=== PATIENT | female | born 1990 | race Caucasian/White ===

== ENCOUNTER → 2016-10-11 | Outpatient (CLI) | payer MEDICAID ==
[~2016-10-11] MED LIST: ACETAMINOPHEN-H1 TA2 PO; AMOXICILLIN AND1 TA1 PO; ANTIBIOTIC; AUGMENTIN XR 101 TER PO; AVIDOXY100 MG PO; BACTROBAN21 NS; CIPRO 500MG TA500 MG PO; CIPROFLOXACIN500 MG PO; CLEOCIN HCL300 MG PO; CLINDAMYCIN HC150 MG PO; CLINDAMYCIN HC300 MG PO; CLINDAMYCIN300 MG PO; DOXYCYCLINE HY100 M3 PO; DOXYCYCLINE150 MG PO; ERYTHROMYCIN1 GM/UDP OP; FLAGYL500 M1 PO; FLAGYL500 MG PO; FLEXERIL10 MG PO; HYDROCODONE-APA1 TA2 PO; IBUPROFEN400 MG PO; IMPLANON68 MG ID; KEFLEX 500MG.500 MG PO; LEVAQUIN500 MG PO; LORTAB 5/500 501 TAB PO; MACROBID 100MG100 MG PO; MACROBID100 M1 PO; MINOCYCLINE 10100 MG PO; MOTRIN 600MG.600 MG PO; MUPIROCIN21; NICOTINE PATCH;21 MG TD; NORCO 325 MG-51 TAB PO; NORCO1 TAB PO; PERCOCET 325 MG1 TA3 PO; PERCOCET 5/3251 EACH PO; PHENERGAN 25MG.25 M1 PO; PREDNISONE 20MG20 MG PO; PROMETHAZINE D118 ML PO; PYRIDIUM 200MG200 MG PO; RIFADIN 300MG300 MG PO; TESSALON PERLE100 MG PO; TIZANIDINE HCL 44 MG PO; TORADOL10 MG PO; TRAMADOL50 M1 PO; TRAZODONE 50MG50 MG PO; VIBRAMYCIN 100100 MG PO; VIBRAMYCIN HYC100 MG PO; VICODIN 5/500 T1 TAB PO; VICODIN ES 7501 TAB PO; VOLTAREN75 MG PO; XANAX1 M1 PO
[2016-10-11 16:00] LABS: AMPHETAMINES/METAMPHETAMINES POSITIVE ng/mL (<1000)
== END ==
LOC: LAB 13:45
PROVIDERS: Emergency Medicine
DX: Z79.899 Other long term (current) drug therapy (principal)

== ENCOUNTER → 2017-02-12 | Outpatient (CLI) | payer MEDICAID ==
[~2017-02-12] MED LIST changes: +ADDERALL 20 MG20 MG PO; +GABAPENTIN100 M1 PO; +MUCINEX ER600 MG PO; +PROVENTIL0.09 MG/A1 IH
[2017-02-12 21:28] LABS: AMPHETAMINES/METAMPHETAMINES NEGATIVE ng/mL (<1000)
== END ==
LOC: LAB 14:50
PROVIDERS: Emergency Medicine
DX: M79.601 Pain in right arm (principal); Z79.899 Other long term (current) drug therapy

== ENCOUNTER 2017-02-23 16:21 | Emergency (ER) | payer MEDICAID ==
[~2017-02-23] VITALS: Ht 152.4 cm; Wt 52.2 kg
--- NOTE | 2017-02-23 17:30 | Urgent Treatment Center Report ---
See Addendum History of Present Issue Date/Time Seen by Provider 02/23/17 1708 Visit Reason Pt arrived:Walked Presenting Problem:PT C/O HEAD AND CHEST CONGESTION, FEVER, COUGH Location if Accident: Onset of symptoms date/time:/ or onset unknown for:MEDICAL HX UNKNOWN Have you (or family members/close friends) recently traveled outside the [place]? N If Yes, where/when: Have you had exposure to infectious disease within the past month? TB? Other? Specify: Patient states that she has been having cough and congestions along with fever that has been on and off since last week States that she was seen at [facility] on Sun and given steriod shot and Zpack but it has not been helping States that she has continued to feel bad and run fever State that she is able to keep fever down with Motrin ALLERGIES Coded Allergies: bacitracin (From NEOSPORIN ([id number])) (Mild, 05/03/15) neomycin (From NEOSPORIN ([id number])) (Mild, 05/03/15) polymyxin B (From NEOSPORIN ([id number])) (Mild, 05/03/15) sulfamethoxazole (From BACTRIM) (Mild, 05/03/15) trimethoprim (From BACTRIM) (Mild, 05/03/15) Home Medications Active Scripts Clindamycin Hcl (Clindamycin 300MG) 300 MG PO QID #40 CAP Prov: 12/04/16 Reported Medications TIZANIDINE HCL (Tizanidine Hcl 4 Mg Tablet) 4 MG PO NIGHTLY #30 Dextroamphetamine/Amphetamine (Adderall 20 MG Tablet) 20 MG PO BID Gabapentin (Gabapentin 100MG) (Unknown Dose) PO TID History Medical History General CAD? No Angina: No IN: No Hypertension? No Hyperlipidemia? No CHF? No DVT? No PE? No COPD? No Asthma? No Anemia? No GERD? No Gastric ulcers? No GI Bleed? No Hernia? No Thyroid Problems? No Hypothyroidism? No CVA? No Seizures? No Diabetes? No Renal Insuffiency? No UTI? Yes Stones? No BPH? No GB Disease: Yes Nephritic Syndrome? No Asplenia? No Hepatitis? No Sickle Cell Disease? No Arthritis? No Migraines? No Cataracts? No Glaucoma? No MRSA? Yes HIV? No TB? No Anxiety? No Depression? No Cancer? No More? No Immunization HX DT/Tetanus 1-4 Years Ago Flu Refused Pneumonia Refuses Surgical Hx Previous Surgery?Y Tonsils L ARM BARTHOLIN CYST ORAL SURGERY-WISDOM TEETH OVARIAN CYST-X 2 LANCED RT BREAST LESION COLONOSCOPY LEFT LEG ABSCESS LEFT LEG SWEAT GLANDS LEG SWEAT GLAND REMOVAL L GROIN ABCESS RIGHT LEG SWEAT GLAND-RE MOVAL GROIN ABCESS DRAINED X3 LAP GOGO, I&D X3 IN P3MO Family History Family HX Diabetes Yes CAD Yes Hypertension Yes Hyperlipidemia Yes Cancer Yes TB No Social History Smoking Hx Smoker: Current Every Day Smoker Tobacco: Yes Type Cigarettes Packs/day < 1 Pack Alcohol Alcohol: No Review of Systems All Other Systems Reviewed and Negative Constitutional chills, fever Respiratory cough, denies shortness of breath, denies wheezing Cardiovascular denies chest pain, denies palpitations Gastrointestinal denies diarrhea, denies nausea, denies vomiting Physical Exam Vital Signs Vital Signs Date Time Temp Pulse Resp B/P Pulse O2 O2 Flow FiO2 Ox Delivery Rate 02/23 1640 97.6 111 20 118/49 96 General Appearance Patient appears ill pale in color in no distress sitting on exam table Ear, Nose, Throat sinus pain/drainage, nasal congestion, Throat red, irritated drainage noted, sinus pain and drainage noted Respiratory Status Yes: trachea midline, chest symmetrical, non tender chest. No: respiratory distress. Lung Sounds left: rhonchi (rhonchi clears with cough), wheezing. Cardiovascular normal exam, regular rate/rhythm Neurologic alert, normal exam, oriented x 3 Medical Decision Making LABS/Meds/Orders Pt receiving controlled substance in ED? No Results/Orders Current Medication Orders Sig/Matthias Start time Last Medication Dose Route Stop Time Status Admin Albuterol/Ipratropium 0 .STK-MED ONE 02/23 173 DC INH Albuterol/Ipratropium 3 ML ONCE ONE 02/23 1730 DC 02/23 INH 02/23 1731 1738 Orders Procedure Date/time Status RT REQUEST DUONEB 02/23 172 Active CHEST(2 VIEWS-NOT PORTABLE) 02/23 1645 Active Departure Departure Time of Disposition 1727 Disposition DC Home or Self Care(routine) Clinical Impression Primary Impression: Pneumonia Qualifiers: Pneumonia type: due to unspecified organism Laterality: left Lung location: lower lobe of lung Qualified Code: J18.1 - Lobar pneumonia, unspecified organism Condition STABLE Referrals Lawrence SMART,Tolu Velázquez (Family) Patient Instructions DI for Pneumonia -- Adult, Pneumonia-Adult Additional Instructions * Monitor Temp. Tylenol and/or Ibuprofen as needed. ER if fever is no less than 101 despite alternating Tylenol and Ibuprofen * Encourage fluids, water, Gatorade, powerade, pedialyte if infant/toddler/or child * Warm salt water gargles for throat irritation *Warm fluids *Sore throat lozenges *Sleep elevated *humidifier or vaporizer Follow up IMMEDIATELY for new or worsening of symptoms OR no noticeable improvement over the next 48-72 hours. 911 immediately for any life threatening symptoms such as chest pain or difficulty breathing Take antibiotics as prescribed Return if needed Discharge Counseling Counseled pt/family regarding diagnosis, test results, medications/RX, home care, follow up needs Prescriptions Current Visit Scripts ALBUTEROL (Proventil Hfa Inhaler) 2 PUFF IH Q6H PRN #1 CAN Guaifenesin (Mucinex) 600 MG PO BID #20 TAB Levofloxacin (Levaquin 500MG) 500 MG PO DAILY #10 TAB Prednisone (Prednisone 20MG) 20 MG PO BID #10 TAB at 1756
--- NOTE | 2017-02-23 17:30 | Urgent Treatment Center Report ---
See Addendum History of Present Issue Date/Time Seen by Provider 02/23/17 1708 Visit Reason Pt arrived:Walked Presenting Problem:PT C/O HEAD AND CHEST CONGESTION, FEVER, COUGH Location if Accident: Onset of symptoms date/time:/ or onset unknown for:MEDICAL HX UNKNOWN Have you (or family members/close friends) recently traveled outside the [place]? N If Yes, where/when: Have you had exposure to infectious disease within the past month? TB? Other? Specify: Patient states that she has been having cough and congestions along with fever that has been on and off since last week States that she was seen at [facility] on Sun and given steriod shot and Zpack but it has not been helping States that she has continued to feel bad and run fever State that she is able to keep fever down with Motrin ALLERGIES Coded Allergies: bacitracin (From NEOSPORIN ([id number])) (Mild, 05/03/15) neomycin (From NEOSPORIN ([id number])) (Mild, 05/03/15) polymyxin B (From NEOSPORIN ([id number])) (Mild, 05/03/15) sulfamethoxazole (From BACTRIM) (Mild, 05/03/15) trimethoprim (From BACTRIM) (Mild, 05/03/15) Home Medications Active Scripts Clindamycin Hcl (Clindamycin 300MG) 300 MG PO QID #40 CAP Prov: 12/04/16 Reported Medications TIZANIDINE HCL (Tizanidine Hcl 4 Mg Tablet) 4 MG PO NIGHTLY #30 Dextroamphetamine/Amphetamine (Adderall 20 MG Tablet) 20 MG PO BID Gabapentin (Gabapentin 100MG) (Unknown Dose) PO TID History Medical History General CAD? No Angina: No NM: No Hypertension? No Hyperlipidemia? No CHF? No DVT? No PE? No COPD? No Asthma? No Anemia? No GERD? No Gastric ulcers? No GI Bleed? No Hernia? No Thyroid Problems? No Hypothyroidism? No CVA? No Seizures? No Diabetes? No Renal Insuffiency? No UTI? Yes Stones? No BPH? No GB Disease: Yes Nephritic Syndrome? No Asplenia? No Hepatitis? No Sickle Cell Disease? No Arthritis? No Migraines? No Cataracts? No Glaucoma? No MRSA? Yes HIV? No TB? No Anxiety? No Depression? No Cancer? No More? No Immunization HX DT/Tetanus 1-4 Years Ago Flu Refused Pneumonia Refuses Surgical Hx Previous Surgery?Y Tonsils L ARM BARTHOLIN CYST ORAL SURGERY-WISDOM TEETH OVARIAN CYST-X 2 LANCED RT BREAST LESION COLONOSCOPY LEFT LEG ABSCESS LEFT LEG SWEAT GLANDS LEG SWEAT GLAND REMOVAL L GROIN ABCESS RIGHT LEG SWEAT GLAND-RE MOVAL GROIN ABCESS DRAINED X3 LAP GOGO, I&D X3 IN P3MO Family History Family HX Diabetes Yes CAD Yes Hypertension Yes Hyperlipidemia Yes Cancer Yes TB No Social History Smoking Hx Smoker: Current Every Day Smoker Tobacco: Yes Type Cigarettes Packs/day < 1 Pack Alcohol Alcohol: No Review of Systems All Other Systems Reviewed and Negative Constitutional chills, fever Respiratory cough, denies shortness of breath, denies wheezing Cardiovascular denies chest pain, denies palpitations Gastrointestinal denies diarrhea, denies nausea, denies vomiting Physical Exam Vital Signs Vital Signs Date Time Temp Pulse Resp B/P Pulse O2 O2 Flow FiO2 Ox Delivery Rate 02/23 1640 97.6 111 20 118/49 96 General Appearance Patient appears ill pale in color in no distress sitting on exam table Ear, Nose, Throat sinus pain/drainage, nasal congestion, Throat red, irritated drainage noted, sinus pain and drainage noted Respiratory Status Yes: trachea midline, chest symmetrical, non tender chest. No: respiratory distress. Lung Sounds left: rhonchi (rhonchi clears with cough), wheezing. Cardiovascular normal exam, regular rate/rhythm Neurologic alert, normal exam, oriented x 3 Medical Decision Making LABS/Meds/Orders Pt receiving controlled substance in ED? No Results/Orders Current Medication Orders Sig/Matthias Start time Last Medication Dose Route Stop Time Status Admin Albuterol/Ipratropium 0 .STK-MED ONE 02/23 173 DC INH Albuterol/Ipratropium 3 ML ONCE ONE 02/23 1730 DC 02/23 INH 02/23 1731 1738 Orders Procedure Date/time Status RT REQUEST DUONEB 02/23 172 Active CHEST(2 VIEWS-NOT PORTABLE) 02/23 1645 Active Departure Departure Time of Disposition 1727 Disposition DC Home or Self Care(routine) Clinical Impression Primary Impression: Pneumonia Qualifiers: Pneumonia type: due to unspecified organism Laterality: left Lung location: lower lobe of lung Qualified Code: J18.1 - Lobar pneumonia, unspecified organism Condition STABLE Referrals Lawrence SMART,Tolu Velázquez (Family) Patient Instructions DI for Pneumonia -- Adult, Pneumonia-Adult Additional Instructions * Monitor Temp. Tylenol and/or Ibuprofen as needed. ER if fever is no less than 101 despite alternating Tylenol and Ibuprofen * Encourage fluids, water, Gatorade, powerade, pedialyte if infant/toddler/or child * Warm salt water gargles for throat irritation *Warm fluids *Sore throat lozenges *Sleep elevated *humidifier or vaporizer Follow up IMMEDIATELY for new or worsening of symptoms OR no noticeable improvement over the next 48-72 hours. 911 immediately for any life threatening symptoms such as chest pain or difficulty breathing Take antibiotics as prescribed Return if needed Discharge Counseling Counseled pt/family regarding diagnosis, test results, medications/RX, home care, follow up needs Prescriptions Current Visit Scripts ALBUTEROL (Proventil Hfa Inhaler) 2 PUFF IH Q6H PRN #1 CAN Guaifenesin (Mucinex) 600 MG PO BID #20 TAB Levofloxacin (Levaquin 500MG) 500 MG PO DAILY #10 TAB Prednisone (Prednisone 20MG) 20 MG PO BID #10 TAB at 1752
[2017-02-23 18:07] VITALS: BP 118/49
--- NOTE | 2017-02-24 09:25 | RADIOLOGY REPORT PS360 ---
CHEST(2 VIEWS-NOT PORTABLE) INDICATION: Cough, chest congestion COMPARISON: None FINDINGS: The lung fair are well expanded and appear clear of infiltrate. The cardiomediastinal silhouette and vascularity are normal. The costophrenic angles are clear. The bony thorax is normal. IMPRESSION: Normal chest.
--- OUTSIDE RECORDS SUMMARY | 2017-03-02 08:04 | External Medical Summary Rpt | CCD ---
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 3- 00 IC 66 Av ve X 18 20 20 ai 1% 02 08 08 PH la 2 AR bl OI MA e NT CY ME NT 00 06 06 00 20 10 CL 17 No Ac 52 -0 -1 .0 IN 18 t ti 71 3- 2- 00 IC 93 Av ve 44 20 20 ai 30 08 08 PH la 1 AR bl MA e CY AM 00 05 05 00 40 10 CL 17 No Ac PI 78 -1 -2 .0 IN 05 t ti CI 12 2- 2- 00 IC 66 Av ve LL 14 20 20 ai IN 50 08 08 PH la 1 AR bl 50 MA e 0 CY MG CA PS UL E 00 05 05 00 14 14 CL 17 No Ac 04 -1 -2 .0 IN 06 t ti 51 3- 2- 00 IC 45 Av ve 52 20 20 ai 55 08 08 PH la 0 AR bl MA e CY 00 05 05 00 20 4 CL 17 No Ac 59 -1 -2 .0 IN 06 t ti 10 3- 2- 00 IC 47 Av ve 38 20 20 ai 50 08 08 PH la 5 AR bl MA e CY 52 05 05 00 30 10 CL 17 No Ac 15 -1 -2 .0 IN 06 t ti 20 3- 2- 00 IC 46 Av ve 00 20 20 ai 40 08 08 PH la 2 AR bl MA e CY CI 55 02 04 00 14 7 CL 16 No Ac MD 11 -2 -0 .0 IN 57 t ti OF 10 6- 7- 00 IC 12 Av ve LO 12 20 20 ai XA 70 08 08 PH la CI 1 AR bl N MA e HC CY L 50 0 MG TA B MU 45 01 03 00 22 7 CL 16 No Ac PI 80 -2 -2 .0 IN 35 t ti RO 20 9- 6- 00 IC 76 Av ve CI 11 20 20 ai N 22 08 08 PH la 2% 2 AR bl MA e OI CY NT ME NT DO 00 01 03 00 20 10 CL 16 No Ac XY 59 -2 -2 .0 IN 35 t ti CY 15 9- 6- 00 IC 75 Av ve CL 44 20 20 ai IN 00 08 08 PH la E 5 AR bl HY MA e CL CY AT E 10 0 MG CA P 53 01 03 00 90 30 CL 16 No Ac 74 -2 -2 .0 IN 35 t ti 60 9- 6- 00 IC 77 Av ve 13 20 20 ai 70 08 08 PH la 5 AR bl MA e CY AC 00 01 03 00 30 8 CL 16 No Ac ET 40 -2 -2 .0 IN 33 t ti AM 60 5- 5 IC 36 Av ve IN 48 20 20 ai OP 41 08 08 PH la HE 0 AR bl N- MA e CO CY D #3 TA BL ET Immunization Name Date Rout CVX Reac Dose Comm Prov Is Faci e tion ent ider Refu lity Give sed n IIV3 02-20 141 EVER No EVER 1-20 SOLE SOLE VACC 12 IJEOMA INE SPLI T VIRU IJEOMA S 0.5 ML DOSA GE IM USE TDAP 11-19 115 NEERU No NEERU 9-20 [facility] LIBERTY VACC 12 MEM MEM INE 7 HOSP HOSP YRS/ INC INC > IM IIV3 05-21 141 NEERU No DHS/ 0-20 [place] CO VACC 08 CO HEAL INE HEAL TH SPLI TH CENT T CENT RAL VIRU ER BANK S 0.5 ACCT ML DOSA GE IM USE Vital Signs 04-11-2013 12:24 Name Value Interpretat Reference Comment ion Range Body 98.2 [degF] Temperature BP 68 mm[Hg] Diastolic BP Systolic 113 mm[Hg] Heart 80 /min Rate/Pulse O2% 97 % Respiratory 16 /min Rate 04-11-2013 09:20 Name Value Interpretat Reference Comment ion Range BP 76 mm[Hg] Diastolic BP Systolic 134 mm[Hg] Heart 93 /min Rate/Pulse O2% 98 % Respiratory 20 /min Rate 03-11-2013 13:45 Name Value Interpretat Reference Comment ion Range BP 78 mm[Hg] Diastolic BP Systolic 120 mm[Hg] Heart 81 /min Rate/Pulse O2% 99 % Respiratory 18 /min Rate 01-18-2013 00:23 Name Value Interpretat Reference Comment ion Range Body 97.6 [degF] Temperature BP 66 mm[Hg] Diastolic BP Systolic 116 mm[Hg] Heart 94 /min Rate/Pulse O2% 95 % Respiratory 17 /min Rate 11-18-2012 21:49 Name Value Interpretat Reference Comment ion Range BP 82 mm[Hg] Diastolic BP Systolic 128 mm[Hg] Heart 87 /min Rate/Pulse O2% 97 % Respiratory 20 /min Rate 11-18-2012 21:17 Name Value Interpretat Reference Comment ion Range BP 61 mm[Hg] Diastolic BP Systolic 110 mm[Hg] Heart 80 /min Rate/Pulse O2% 96 % Respiratory 20 /min Rate 10-12-2012 17:35 Name Value Interpretat Reference Comment ion Range BP 73 mm[Hg] Diastolic BP Systolic 112 mm[Hg] Heart 76 /min Rate/Pulse O2% 94 % Respiratory 18 /min Rate 10-12-2012 15:28 Name Value Interpretat Reference Comment ion Range BP 62 mm[Hg] Diastolic BP Systolic 104 mm[Hg] Heart 63 /min Rate/Pulse O2% 100 % Respiratory 18 /min Rate 09-18-2012 20:02 Name Value Interpretat Reference Comment ion Range Body 98.1 [degF] Temperature BP 63 mm[Hg] Diastolic BP Systolic 118 mm[Hg] Heart 90 /min Rate/Pulse O2% 99 % Respiratory 18 /min Rate 09-18-2012 18:52 Name Value Interpretat Reference Comment ion Range BP 57 mm[Hg] Diastolic BP Systolic 92 mm[Hg] Heart 76 /min Rate/Pulse O2% 96 % Respiratory 18 /min Rate Results Labs Lab Lab Date Result Refere Interp Status Commen Order Detail nces retati t Range on B-HCG Ur Ql (10-12-2012 14:56) B-HCG 05-25-2 NEGATIV NEG complet Ur Ql 013 E ed 14:56 URINALYSIS/COMPLETE (10-12-2012 14:56) URINE 05-25-2 YELLOW YELLOW complet COLOR 013 ed 14:56 URINE 05-25-2 CLEAR CLEAR complet APPEARA 013 ed NCE 14:56 URINE 05-25-2 NEGATIV NEG complet GLUCOSE 013 E ed - 14:56 DIPSTIC K URINE 05-25-2 NEGATIV NEG complet BILIRUB 013 E ed IN - 14:56 DIPSTIC K URINE 05-25-2 NEGATIV NEG complet KETONE 013 E mg/dL ed 14:56 URINE 05-25-2 1.015 1.005-1 complet SPECIFI 013 UNK .030 ed C 14:56 GRAVITY URINE 05-25-2 NEGATIV NEG complet BLOOD 013 E ed 14:56 URINE 05-25-2 7.5 UNK 5.0-8.5 complet PH 013 ed 14:56 URINE 05-25-2 NEGATIV NEG complet PROTEIN 013 E mg/dL ed - 14:56 DIPSTIC K URINE 05-25-2 0.2 NEG complet UROBILI 013 E.U./dL ed NOGEN - 14:56 DIPSTIC K URINE 05-25-2 NEGATIV NEG complet NITRATE 013 E ed - 14:56 DIPSTIC K URINE 05-25-2 NEGATIV NEG complet LEUK 013 E ed ESTERAS 14:56 E URINE 05-25-2 OCC 0 complet RBC 013 rbc/hpf ed 14:56 URINE 05-25-2 OCC O complet WBC 013 wbc/hpf ed 14:56 URINE 05-25-2 10-20 0-5 complet SQUAMOU 013 #/hpf ed S CELLS 14:56 URINE 05-25-2 2+ O complet BACTERI 013 ed A 14:56 COMPREHENSIVE METABOLIC PANEL (10-12-2012 14:48) Glucose 05-25-2 106 74-106 complet 013 mg/dL ed Bld-mCn 14:48 c BUN 05-25-2 5 mg/dL 7-18 complet Bld-mCn 013 ed c 14:48 Creat 05-25-2 0.9 0.6-1.0 complet SerPl-m 013 mg/dL ed Cnc 14:48 GFR -25-2 78 59- complet (ESTIMA 013 ML/MIN ed CRISTIANO) 14:48 Sodium 05-25-2 138 136-145 complet SerPl-s 013 mmoL/L ed Cnc 14:48 Potassi 05-25-2 4.0 3.5-5.1 complet um 013 mmoL/L ed SerPl-s 14:48 Cnc Chlorid 05-25-2 101 98-107 complet e 013 mmoL/L ed SerPl-s 14:48 Cnc CO2 05-25-2 29 21.0-32 complet SerPl-s 013 mmoL/L .0 ed Cnc 14:48 Calcium 05-25-2 8.9 8.5-10. complet 013 mg/dL 1 ed SerPl-m 14:48 Cnc Prot 05-25-2 7.3 6.4-8.2 complet SerPl-m 013 gm/dL ed Cnc 14:48 Albumin 05-25-2 3.3 3.4-5.0 complet 013 gm/dL ed SerPl-m 14:48 Cnc Globuli 05-25-2 4.0 1.3-3.2 complet n 013 gm/dL ed Ser-mCn 14:48 c Albumin 05-25-2 0.8 UNK 1.1-1.8 complet /Glob 013 ed SerPl-m 14:48 Rto Bilirub 05-25-2 0.2 0.2-1.0 complet 013 mg/dL ed SerPl-m 14:48 Cnc AST 05-25-2 19 U/L 15-37 complet SerPl-c 013 ed Cnc 14:48 ALT 05-25-2 41 U/L 30-65 complet SerPl-c 013 ed Cnc 14:48 ALP 05-25-2 121 U/L 50-136 complet SerPl-c 013 ed Cnc 14:48 LIPASE (10-12-2012 14:48) LIPASE 05-25-2 62 U/L 73-393 complet 013 ed 14:48 CBC with AUTO DIFF (10-12-2012 14:48) WBC # 05-25-2 6.4 4.8-10. complet Bld 013 K/MM3 8 ed Auto 14:48 RBC # 05-25-2 4.81 4.2-5.4 complet Bld 013 M/mm3 ed Auto 14:48 Hgb 05-25-2 15.1 12.2-16 complet Bld-mCn 013 g/dL .2 ed c 14:48 Hct Fr 05-25-2 45.9 % 37.0-47 complet Bld 013 .0 ed 14:48 MCV RBC 05-25-2 95.4 fl 82.2-97 complet 013 .8 ed 14:48 MCH RBC 05-25-2 31.4 pg 27-31.2 complet Qn 013 ed Auto 14:48 MEAN 05-25-2 32.9 31.8-35 complet CORPUSC 013 g/dl .4 ed ULAR 14:48 HGB CONC RDW RBC 05-25-2 13.5 % 11.5-17 complet Auto 013 .5 ed 14:48 Platele 05-25-2 254 142-424 complet t Bld 013 K/mm3 ed Ql 14:48 Manual MEAN 05-25-2 8.4 fl 7.4-10. complet PLATELE 013 4 ed T 14:48 VOLUME Granulo 05-25-2 45.9 % 37.0-80 complet cytes 013 .0 ed Fr Bld 14:48 Auto LYMPH % 05-25-2 42.8 % 10-50.0 complet 013 ed 14:48 Monocyt 05-25-2 7.8 % 1.7-9.3 complet es Fr 013 ed Bld 14:48 Auto Eosinop 05-25-2 3.0 % 0.1-12. complet hil Fr 013 0 ed Bld 14:48 Auto Basophi 05-25-2 0.5 % 0.1-2.0 complet ls Fr 013 ed Bld 14:48 Auto Granulo 05-25-2 3.0 1.8-7.8 complet cytes # 013 K/mm3 ed Bld 14:48 Auto Lymphoc 05-25-2 2.8 0.7-4.5 complet ytes Fr 013 K/mm3 ed Bld 14:48 Auto Monocyt 05-25-2 0.5 0.1-1.0 complet es # 013 K/mm3 ed Bld 14:48 Auto Eosinop 05-25-2 0.2 0.0-0.4 complet hil # 013 K/mm3 ed Bld 14:48 Auto Basophi 05-25-2 0.0 0-0.2 complet ls # 013 K/MM3 ed Bld 14:48 Auto Procedures Procedure DOS Code Location Performer Comment RADEX 28477 ANA PEREZ FOREARM 2 7 [place] [place] [address] RADIOLOGY [place] ABDOMEN & 7 PELVIS ASSOCIATE W/CONTRAS S OF [facility] T MATERIAL UNCLASSIF J3490 ANA PEREZ IED DRUGS 7 [facility] INC INC THERAPEUT 98343 ANA PREEZ IC 7 [facility] PROPHYLAC INC INC TIC/DX INJECTION SUBQ/IM CUL BACT 89271 ANA PEREZ XCPT 7 [facility] URINE INC INC BLOOD/STO OL AEROBIC ISOL CUL BACT 16997 ANA PEREZ AEROBIC 7 [facility] ADDL INC INC METHS DEFINITIV E EA ISOL SUSCEPTIB 59584 ANA PEREZ LTY STDY 7 [facility] ANTIMICRB INC INC IAL MICRO/AGA R DILUTJ DRUG TEST 34313 NAA PEREZ PRSMV 7 [facility] QUAL DIR INC INC OPTICAL OBS PER DAY DRUG TEST 52218 ANA PEREZ PRSMV 7 [facility] QUAL DIR INC INC OPTICAL OBS PER DAY DRUG TEST 55783 ANA PEREZ PRSMV 7 [facility] QUAL DIR INC INC OPTICAL OBS PER DAY THER 75077 FRANC BRUNER PROPH/DX [address] [place] [address] NJX EA [facility] SEQL IV PUSH SBST/DRUG FAC THERAPEUT 24549 [facility] [address] [place] [address] INJECTION [facility] IV PUSH EACH NEW DRUG DRUG TEST 97108 ANA PACHECOON PRSMV 7 [facility] QUAL DIR INC INC OPTICAL OBS PER DAY COMPREHEN 00990 ANA PEREZ SIVE 6 [facility] METABOLIC INC INC PANEL BLOOD 92452 ANA PEREZ COUNT 6 [facility] COMPLETE INC INC AUTO&[place] [address] ANA PEREZ INFUSION 6 [facility] THERAPY/P INC INC ROPHYLAXI S /DX 1ST TO 1 HR UNCLASSIF J3490 ANA PEREZ IED DRUGS 6 [facility] INC INC UNCLASSIF J3490 ANA PEREZ IED DRUGS 6 [place] [address] ANA PEREZ ABDOMEN & 6 [facility] PELVIS INC INC W/O CONTRAST MATERIAL URINE 62016 ANA PEREZ 6 [facility] TEST INC INC VISUAL COLOR CMPRSN METHS DRUG TST G0477 ANA PEREZ PRESUMP;C 6 [facility] PBL [place] [address] ANA ANA INFUSION 6 [facility] THERAPY/P INC INC ROPHYLAXI S /DX 1ST TO 1 HR BLOOD 02264 ANA PEREZ COUNT 6 [facility] COMPLETE INC INC AUTO&AUTO DIFRNTL WBC COMPREHEN 67951 ANA PEREZ SIVE 6 [facility] METABOLIC INC INC PANEL COMPREHEN 22817 ANA PEREZ SIVE 6 [facility] METABOLIC INC INC PANEL COLLECTIO 63858 ANA PEREZ N VENOUS 6 [facility] BLOOD INC INC VENIPUNCT URE BLOOD 33678 ANA PEREZ COUNT 6 [facility] COMPLETE INC INC AUTO&AUTO DIFRNTL WBC HEMOGLOBI 35295 ANA PEREZ N 6 [facility] GLYCOSYLA INC INC CRISTIANO A1C URNLS DIP 28371 [facility] 6 PHYSICIAN IVAN STICK/TAB S GROUP LET RGNT NON-AUTO W/O MICRSCP DRUG TST G0477 ANA PEREZ PRESUMP;C 6 [facility] PBL BEING INC INC READ DC OPT OBV ONLY GROUND [address] [facility] MILEAGE 6 CO AMB CO [place] [address] [facility] CERVICAL 6 SPINE W/O RADIOLOGY RADIOLOGY CONTRAST ASSOCIAT ASSOCIAT MATERIAL AMB A[address] [facility] SERVICE 6 CO AMB CO AMB ALS SERVICE SERVICE [place] [address] [facility] HEAD/BRAI 6 N W/O RADIOLOGY RADIOLOGY CONTRAST ASSOCIAT ASSOCIAT MATERIAL URNLS DIP 94355 ANA PIERRE 6 [facility] STICK/TAB LDS HOSPITAL LET RGNT NON-AUTO W/O MICRSCP OBSERVATI 69310 [facility] ON/INPATI 5 PHYSICIAN IVAN ENT S GROUP HOSPITAL CARE 50 [place] [address] ANA PEREZ INFUSION 5 [facility] THERAPY/P INC INC ROPHYLAXI S /DX 1ST TO 1 HR THERAPEUT 75909 ANA PEREZ IC 5 [facility] INJECTION [place] [address] ANA PEREZ INFUSION 5 [facility] THER INC INC PROPH ADDL SEQUENTIA L TO 1 HR URINE 82964 ANA PEREZ 5 [facility] TEST INC [place] [address] ANA PEREZ ABDOMEN & 5 [facility] PELVIS INC INC W/O CONTRAST MATERIAL BLOOD 07368 ANA PEREZ COUNT 5 [facility] COMPLETE INC INC AUTO&AUTO DIFRNTL WBC URNLS DIP 98267 ANA PEREZ 5 [facility] STICK/TAB INC INC LET REAGENT AUTO MICROSCOP Y COMPREHEN 06392 ANA PEERZ SIVE 5 [facility] METABOLIC INC INC PANEL INCISION 44361 ANA PEREZ & 5 [facility] DRAINAGE INC INC ABSCESS COMPLICAT ED/MULTIP LE CULTURE 70169 ANA PEREZ BACTERIAL 5 [facility] ANY INC INC SOURCE ANAEROBIC ISO&ID CUL BACT 51196 ANA PEREZ AEROBIC 5 [facility] ADDL INC [place] [address] ANA PEREZ INFUSION 5 [facility] THERAPY INC INC PROPHYLAX IS/DX EA HOUR CUL BACT 72954 ANA PEREZ XCPT 5 [facility] URINE INC INC BLOOD/STO OL AEROBIC ISOL ANES 41585 [facility] INTE 5 ANESTH SHE EXTREMITI OF THE ES ANT BLUE TRUNK & PERINEUM NOS INJECTION J2405 ANA PEREZ 5 [facility] ONDANSETR INC INC ON HCL PER 1 MG BASIC 54193 ANA PEREZ METABOLIC 5 [facility] PANEL INC INC CALCIUM TOTAL COLLECTIO 26745 ANA PEREZ N VENOUS 5 [facility] BLOOD INC INC VENIPUNCT URE GONADOTRO 50829 ANA PEREZ PIN 5 [facility] CHORIONIC INC INC QUALITATI VE BLOOD 14144 ANA PEREZ COUNT 5 [facility] COMPLETE INC INC AUTO&AUTO DIFRNTL WBC RADIOLOGI 22256 [place] [facility] 4 MEDICAL DONIS EXAMINATI IMAGING ON ANKLE ASS 2 VIEWS RADEX 78142 ANA PEREZ ANKLE 4 [facility] COMPLETE INC [place] MINIM[place] [address] [place] [address] [facility] ABDOMEN & 4 MEDICAL LAURE PELVIS IMAGING W/O ASS CONTRAST MATERIAL BASIC 74306 ANA PEREZ METABOLIC 4 [facility] PANEL INC INC CALCIUM TOTAL BLOOD 73673 ANA PEREZ COUNT 4 [facility] COMPLETE INC INC AUTO&AUTO DIFRNTL WBC COLLECTIO 22174 ANA PEREZ N VENOUS 4 [facility] BLOOD INC INC VENIPUNCT URE RADEX ABD 00573 [facility] COMPL 4 MEDICAL LAURE AQT ABD IMAGING W/S/E/D ASS VIEWS 1 VIEW CH ANES 36852 [facility] INTE 4 ANESTH SHE EXTREMITI OF THE ES ANT BLUE TRUNK & PERINEUM NOS INCISION 75801 ANA PEREZ & 4 [facility] DRAINAGE INC INC ABSCESS COMPLICAT ED/MULTIP LE INCISION 14575 [facility] CHERISE TOD & 4 PHYSICIAN DRAINAGE S GROUP ABSCESS COMPLICAT ED/MULTIP LE LAPAROSCO 19636 [facility] CHERISE TOD PY SURG 4 PHYSICIAN CHOLECYST S GROUP ECTOMY LEVEL III 05251 [facility], RUTH IVAN SURG 4 [facility] PATHOLOGY GROSS&IVAN ROSCOPIC EXAM URNLS DIP 11294 ANA PEREZ 4 [facility] STICK/TAB INC INC LET REAGENT AUTO MICROSCOP Y URINE 72478 ANA PEREZ 4 [facility] TEST INC INC VISUAL COLOR CMPRSN [facility] [address] SREE SREE ABDOMINAL 4 DONIS DONIS REAL TIME W/[place] [address] ANA PEREZ INFUSION 4 [facility] THERAPY/P INC INC ROPHYLAXI S /DX 1ST TO 1 [place] [address] ANA PEREZ INFUSION 4 [facility] THERAPY/P INC INC ROPHYLAXI S /DX 1ST TO 1 HR INJECTION J1335 ANA PEREZ 4 [facility] ERTAPENEM INC INC SODIUM 500 MG INJECTION J1335 ANA PEREZ 4 [facility] ERTAPENEM INC [place] SOD[place] [address] ANA PEREZ INFUSION 4 [facility] THERAPY/P INC INC ROPHYLAXI S /DX 1ST TO 1 [place] [address] ANA PEREZ INFUSION 4 [facility] THERAPY/P INC INC ROPHYLAXI S /DX 1ST TO 1 HR INJECTION J1335 ANA PEREZ 4 [facility] ERTAPENEM INC [place] SOD[place] [address] [place] [address] ANA PEREZ INFUSION 4 [facility] THER INC INC PROPH ADDL SEQUENTIA L TO 1 HR INJECTION J1335 ANA PEREZ 4 [facility] ERTAPENEM INC INC SODIUM 500 MG CREATININ 08596 ANA PEREZ E BLOOD 4 [facility] [place] [address] ANA PACHECOON INFUSION 4 [facility] THERAPY/P INC INC ROPHYLAXI S /DX 1ST TO 1 HR DRUG 05674 ANA PEREZ SCREEN 4 [facility] [place]IT[place] [address] ANA ANA INFUSION 4 [facility] THERAPY/P INC INC ROPHYLAXI S /DX 1ST TO 1 HR INJECTION J1335 ANA PACHECOON 4 [facility] ERTAPENEM INC INC SODIUM 500 MG INJECTION J1335 ANA PACHECOON 4 [facility] ERTAPENEM INC [place] SOD[place] [address] ANA PEREZ INFUSION 4 [facility] THER INC INC PROPH ADDL SEQUENTIA L [place] 1 [place] [address] ANA PEREZ INFUSION 4 [facility] THERAPY/P INC INC ROPHYLAXI S /DX 1ST TO 1 HR DRUG 18275 ANA PEREZ SCREEN 4 [facility] [place]ITAT [place] [address] ANA PEREZ INFUSION 4 [facility] THERAPY/P INC INC ROPHYLAXI S /DX 1ST TO 1 HR DRUG 87640 ANA PEREZ SCREEN 4 [facility] QUANTITAT INC INC YANETH GENTAMICI N INJECTION J1335 ANA PACHECOON 4 [facility] ERTAPENEM INC [place] SOD[place] [address] [place] [address] ANA PACHECOON INFUSION 4 [facility] THER INC INC PROPH ADDL SEQUENTIA L TO 1 HR INCISION 72690 [facility] CHERISE TOD & 4 DRAINAGE ABSCESS COMPLICAT ED/MULTIP LE ANESTHESI 33808 [facility] JACKLYN A VAGINAL 4 ANESTH OF THE PROCEDURE BLUE W/BIOPSY NOS INITIAL 18999 [facility] BJORN OBSERVATI 4 PHYSICIAN IVAN ON S GROUP CARE/DAY 50 MINUTES INCISION 21755 BJORN BRAVO & 4 IVAN IVAN DRAINAGE ABSCESS COMPLICAT ED/MULTIP LE SUSCEPTIB 87208 ANA PEREZ LTY STDY 4 [facility] ANTIMICRB INC INC IAL MICRO/AGA R DILUTJ CUL BACT 64924 ANA PEREZ XCPT 4 [facility] URINE INC INC BLOOD/STO OL AEROBIC ISOL CUL BACT 17287 ANA PEREZ AEROBIC 4 [facility] ADDL INC INC METHS DEFINITIV E EA ISOL INCISION 68290 BJORN BRAVO & 4 IVAN IVAN DRAINAGE ABSCESS COMPLICAT ED/MULTIP LE OPHTH 99417 [facility] MEDICAL 4 ANG ANG XM&EVAL COMPRHNSV ESTAB PT 1/> DRUG 76248 ANA PEREZ SCREEN 3 [facility] [place] [address] ANA PEREZ INFUSION 3 [facility] THERAPY/P INC INC ROPHYLAXI S /DX 1ST TO 1 HR CREATININ 39781 ANA PEREZ E BLOOD 3 [facility] INC INC DRUG 72309 ANA PEREZ SCREEN 3 [facility] [place] [address] [place]NA ANA INFUSION 3 [facility] THERAPY/P INC INC ROPHYLAXI S /DX 1ST [place] [address] ANA ANA INFUSION 3 [facility] THERAPY INC INC PROPHYLAX IS/[place] [address] ANA ANA INFUSION 3 [facility] THERAPY INC [place] [address] ANA ANA INFUSION 3 [facility] THERAPY/P INC INC ROPHYLAXI S /DX 1ST TO 1 HR DRUG 10835 ANA PEREZ SCREEN 3 [facility] QUANTITAT [place] [address] ANA ANA INFUSION 3 [facility] THERAPY/P INC INC ROPHYLAXI S /DX 1ST TO 1 [place] [address] ANA ANA INFUSION 3 [facility] THERAPY/P INC INC ROPHYLAXI S /DX 1ST TO [place] [address] ANA ANA INFUSION 3 [facility] THERAPY INC [place]X [place] [address] ANA ANA INFUSION 3 [facility] THERAPY INC INC PROPHYLAX IS/DX EA HOUR DRUG 83541 ANA PEREZ SCREEN 3 [facility] QUANTITAT [place] [address] ANA PEREZ INFUSION 3 [facility] THERAPY/P INC INC ROPHYLAXI S /DX 1ST TO 1 [place] [address] ANAWU PEREZ INFUSION 3 [facility] HYDRATION INC INC INITIAL 31 MIN-[place] [address] ANA PEREZ INFUSION 3 [facility] THERAPY INC INC PROPHYLAX IS/[place] [address] ANA PEREZ INFUSION 3 [facility] THERAPY INC INC [place]X [place] [address] ANA PEREZ INFUSION 3 [facility] THERAPY/P INC INC ROPHYLAXI S /DX 1ST TO 1 [place] [address] ANAWU PEREZ INFUSION 3 [facility] THERAPY INC INC [place]X [place] [address] ANA PEREZ INFUSION 3 [facility] THERAPY/P INC INC ROPHYLAXI S /DX 1ST TO 1 [place] [address] ANAWU PEREZ INFUSION 3 [facility] THERAPY/P INC INC ROPHYLAXI S /DX 1ST TO 1 HR CREATININ 31771 ANA PEREZ E BLOOD 3 [facility] [place] [address] ANAWU PEREZ INFUSION 3 [facility] THERAPY INC INC PROPHYLAX IS/DX EA HOUR CUL BACT 16586 ANA PEREZ AEROBIC 3 [facility] ADDL INC INC METHS DEFINITIV E EA ISOL CUL BACT 13465 ANA PEREZ XCPT 3 [facility] URINE INC INC BLOOD/STO OL AEROBIC ISOL SUSCEPTIB 95167 ANA PEREZ LTY STDY 3 [facility] ANTIMICRB INC INC IAL MICRO/AGA R DILUTJ BLOOD 36543 ANA PEREZ COUNT 3 [facility] COMPLETE INC INC AUTO&AUTO DIFRNTL WBC HEMOGLOBI 51681 ANA PEREZ N 3 [facility] GLYCOSYLA INC INC CRISTIANO A1C COMPREHEN 08584 ANA PEREZ SIVE 3 [facility] METABOLIC INC INC PANEL INCISION 68034 RAQUELONIEL VLAD & 3 JELENA JELENA DRAINAGE ABSCESS SIMPLE/SI NGLE THERAPEUT 91610 [facility] IC 3 PHYSICIAN PHYSICIAN PROPHYLAC S GROUP S GROUP TIC/DX INJECTION SUBQ/IM INJECTION J1100 [facility] 3 PHYSICIAN PHYSICIAN DEXAMETHO S GROUP S GROUP SONE SODIUM PHOSPHATE 1 MG URNLS DIP 15125 [facility] 3 PHYSICIAN PHYSICIAN STICK/TAB S GROUP S GROUP LET RGNT NON-AUTO W/O MICRSCP COMPREHEN 50422 ANA PEREZ SIVE 3 [facility] METABOLIC INC INC PANEL BLOOD 41852 ANA PEREZ COUNT 3 [facility] COMPLETE INC INC AUTO&[place] [address] ANA PEREZ INFUSION 3 [facility] THERAPY/P INC INC ROPHYLAXI S /DX 1ST TO 1 HR SUSCEPTIB 44443 ANA PEREZ LTY STDY 3 [facility] ANTIMICRB INC INC IAL MICRO/AGA R DILUTJ URNLS DIP 53160 ANA PEREZ 3 [facility] STICK/TAB INC INC [place] [address] ANA PEREZ LIPASE 3 [facility] INC INC THERAPEUT 53132 ANA PEREZ IC 3 [facility] INJECTION INC [place] [address] ANA PEREZ INFUSION 3 [facility] THER INC INC PROPH ADDL SEQUENTIA L TO 1 HR INJECTION J2405 ANA PEREZ 3 [facility] ONDANSETR INC INC ON HCL PER 1 MG URINE 20808 ANA PEREZ 3 [facility] TEST INC INC VISUAL COLOR CMPRSN METHS CULTURE 61711 ANA PEREZ BACTERIAL 3 [facility] INC INC QUANTTATI VE COLONY COUNT URINE CULTURE 99218 ANA PEREZ BCT 3 [facility] ISOL&PRSM INC INC PTV ID ISOLATE EA URINE ANES 80051 [facility] INTEG 3 ANESTH EXTREMITI OF THE ES ANT BLUE TRUNK & PERINEUM NOS EXCISION 23463 VLAD CHU HIDRADENI 3 JELENA JELENA TIS INGUINAL SMPL/[place] [address] SISI LAIRD SURG 3 JENNY JENNY PATHOLOGY GROSS&IVAN ROSCOPIC EXAM DETERMINA 33423 SISI LAIRD TION 3 GRE GRE REFRACTIV E STATE OPHTH 47999 SISI SISI MEDICAL 3 GRE GRE XM&EVAL COMPRE NEW PT 1/> VST BLOOD 40006 ANAWU PEREZ COUNT 3 [facility] COMPLETE INC INC AUTO&AUTO DIFRNTL WBC GONADOTRO 48472 ANA PEREZ PIN 3 [facility] CHORIONIC INC INC QUALITATI VE IIV3 12607 GLORIA GLORIA VACCINE 2 IJEOMA IJEOMA SPLIT VIRUS 0.5 ML DOSAGE IM USE IM ADM 57446 GLORIA GLORIA PRQ ID 2 IJEOMA IJEOMA SUBQ/IM NJXS 1 VACCINE RADEX 59598 ANA ANA FOREARM 2 2 [facility] VIEWS INC INC RADEX 89546 ANA PEREZ ELBOW 2 [facility] COMPLETE INC INC MINIMUM 3 VIEWS CUL BACT 30917 ANA PEREZ XCPT 2 [facility] URINE INC INC BLOOD/STO OL AEROBIC ISOL INCISION 14134 BJORN BJORN & 2 IVAN IVAN DRAINAGE ABSCESS SIMPLE/SI NGLE RADEX 79856 [facility] [place] [facility] FOREARM 2 2 RADIOLOGY RHO VIEWS RADEX 42995 [facility] [place] [facility] RIBS UNI 2 RADIOLOGY RHO W/POSTERO ANT CH MINIMUM 3 VIEWS RADEX 36003 [facility] [place] [facility] SPINE 2 RADIOLOGY RHO THORACIC 3 VIEWS RADEX 45975 [place] ELBOW 2 MEDICAL DONIS COMPLETE IMAGING MINIMUM 3 ASS VIEWS RADEX 11845 [facility] SREE ANKLE 2 MEDICAL DONIS COMPLETE IMAGING MINIMUM 3 ASS VIEWS IM ADM 66039 ANA PEREZ PRQ ID 2 [facility] SUBQ/IM INC INC NJXS 1 VACCINE TDAP 72258 ANA PEREZ VACCINE 7 2 [facility] YRS/> IM INC INC SLINGS A4565 [facility] 2 SUSCEPTIB 60549 ANA PEREZ LTY STDY 2 [facility] ANTIMICRB INC INC IAL [place]CRO/[place] [address] ANA PEREZ INFUSION 2 [facility] THERAPY/P INC INC ROPHYLAXI S /DX 1ST TO 1 HR LEVEL III 10441 PATHOLOGY YANCEY SURG 2 & BONY PATHOLOGY CYTOLOGY LAB GROSS&IVAN ROSCOPIC EXAM INCISION 81640 VLAD CHU & 2 JELENA JELENA DRAINAGE ABSCESS COMPLICAT ED/MULTIP LE INCISION 79563 ANAWU PACHECOON & 2 [facility] DRAINAGE INC INC ABSCESS SIMPLE/SI NGLE CUL BACT 95891 ANA PEREZ AEROBIC 2 [facility] ADDL INC [place] [address] ANA PEREZ INFUSION 2 [facility] THERAPY INC INC PROPHYLAX IS/DX EA HOUR THERAPEUT 84692 ANA PEREZ IC 2 [facility] INJECTION INC INC IV PUSH EACH NEW DRUG CUL BACT 37233 ANA CERON XCPT 2 [facility] OMI URINE INC BLOOD/STO OL AEROBIC ISOL CULTURE 65808 ANA ANA BACTERIAL 2 [facility] ANY INC INC SOURCE ANAEROBIC ISO&ID ANES 02908 [facility] INTEG 2 ANESTH IJEOMA EXTREMITI OF THE ES ANT BLUE TRUNK & PERINEUM NOS BASIC 04566 ANA PEREZ METABOLIC 2 [facility] PANEL INC INC CALCIUM TOTAL URINE 39051 ANA PEREZ 2 [facility] TEST INC INC VISUAL COLOR CMPRSN METHS BLOOD 46570 ANA PEREZ COUNT 2 [facility] COMPLETE INC INC AUTO&AUTO DIFRNTL WBC SUSCEPTIB 63003 ANA PEREZ LTY STDY 2 [facility] ANTIMICRB INC INC IAL MICRO/AGA R DILUTJ INCISION 48686 ANA PEREZ & 2 [facility] DRAINAGE INC INC ABSCESS SIMPLE/SI NGLE INCISION 95969 SISI BRAVO & 2 EMERGENCY IVAN [employer] ABSCESS COMPLICAT ED/MULTIP LE CUL BACT 22375 ANAWU PEREZ XCPT 2 [facility] URINE INC INC BLOOD/STO OL AEROBIC ISOL CUL BACT 02805 ANA EPREZ AEROBIC 2 [facility] ADDL INC INC METHS DEFINITIV E EA ISOL ETONOGEST J7307 ALYSSA SHAH REL 2 SALUD SALUD CNTRACPT IMPL SYS INCL IMPL & SPL REMOVAL 26801 ALYSSA SHAH NON-BIODE 2 SALUD SALUD GRADABLE DRUG DELIVERY IMPLANT URINE 22353 ALYSSA SHAH 2 SALUD SALUD TEST VISUAL COLOR CMPRSN METHS RADEX 35716 ANA PEREZ FOREARM 2 2 [facility] VIEWS INC INC REMOVAL 42295 ALYSSA SHAH INTRAUTER 2 SALUD SALUD INE DEVICE IUD I&D 14464 HAAKE BRA HAAKE BRA VULVA/PER 1 INEAL ABSCESS OTH 8604 ANA PEREZ INCISION 0 [facility] W/DRAINAG INC INC E SKIN&SUBC UTANEOUS TISSUE CUL BACT 59689 ANA PEREZ AEROBIC 0 [facility] ADDL INC INC METHS DEFINITIV E EA ISOL CUL BACT 79781 ANA PEREZ XCPT 0 [facility] URINE INC INC BLOOD/STO OL AEROBIC ISOL INCISION 32239 SISI AGUILERA, & 0 EMERGENCY [place] [employer] M ABSCESS SIMPLE/SI ASSOCIATE NGLE S SUSCEPTIB 19237 ANA PEREZ LTY STDY 0 [facility] ANTIMICRB INC [place] [address] WOMEN'S ALYSSA TRANSVAGI 0 [facility] [place] [address] ANA PEREZ THYROID 0 [facility] STIMULATI INC INC NG HORMONE TSH COMPREHEN 74002 ANA PEREZ SIVE 0 [facility] METABOLIC INC INC PANEL SUSCEPTIB 15008 ANA PEREZ LTY STDY 0 [facility] ANTIMICRB INC INC IAL MICRO/AGA R DILUTJ URNLS DIP 10545 ANA PEREZ 0 [facility] STICK/TAB INC INC LET REAGENT AUTO MICROSCOP Y BLOOD 94014 ANA PEREZ COUNT 0 [facility] COMPLETE INC INC AUTO&AUTO DIFRNTL WBC CULTURE 43188 ANA PEREZ BCT 0 [facility] ISOL&PRSM INC INC PTV ID ISOLATE EA URINE CULTURE 23133 ANA PEREZ BACTERIAL 0 [facility] INC [place] [address] ANA PEREZ INFUSION 0 [facility] THERAPY INC INC PROPHYLAX IS/DX EA HOUR URINE 07723 ANA PEREZ 0 [facility] TEST INC INC VISUAL COLOR CMPRSN METHS BASIC 66100 ANA PEREZ METABOLIC 0 [facility] [address] ANA PEREZ INFUSION 0 [facility] THERAPY/P INC INC ROPHYLAXI S /DX 1ST TO 1 HR BLOOD 13493 ANA PEREZ COUNT 0 [facility] COMPLETE INC INC AUTO&[place] [address] ANA PEREZ INFUSION 0 [facility] THER INC INC PROPH ADDL SEQUENTIA L TO 1 HR URNLS DIP 30548 ANA PEREZ 0 [facility] STICK/TAB INC INC LET REAGENT AUTO MICROSCOP Y US PELVIC 31582 ANA PEREZ 0 [facility] NONOBSTET INC INC BONY REAL-TIME IMAGE COMPLETE RADEX 29909 [place], FOOT 9 MEDICAL HOA N COMPLETE SERV MINIMUM 3 FOUNDATIO VIEWS IADNA 52658 MEDICAL [facility]ICAL CHLAMYDIA 9 [facility] TRACHOMAT IS AMPLIFIED PROBE TQ IADNA 00118 MED[facility] NEISSERIA 9 [facility] GONORRHOE AE AMPLIFIED PROBE TQ IAADI 06491 ANA PEREZ INFLUENZA 9 [facility] B VIRUS INC INC IAADI 14606 ANA PEREZ INFFLUENZ 9 [facility] A A VIRUS INC INC SUSCEPTIB 69609 ANA PEREZ LTY STDY 9 [facility] ANTIMICRB INC INC IAL MICRO/AGA R DILUTJ URNLS DIP 97643 ANA PEREZ 9 [facility] STICK/TAB INC INC LET REAGENT AUTO MICROSCOP Y CULTURE 03121 ANA ANA BACTERIAL 9 [facility] INC INC QUANTTATI VE COLONY COUNT URINE CULTURE 94119 ANA PEREZ BCT 9 [facility] ISOL&PRSM INC INC PTV ID ISOLATE EA URINE URINE 11111 ANA PEREZ 9 [facility] TEST INC INC VISUAL COLOR CMPRSN METHS URINE 86547 ANA ANA 9 [facility] TEST INC INC VISUAL COLOR CMPRSN METHS URNLS DIP 73700 ANAWU PEREZ 9 [facility] STICK/TAB INC [place] [address] ANA PEREZ INFUSION 9 [facility] THERAPY/P INC INC ROPHYLAXI S /DX 1ST TO 1 HR LEVEL III 13791 PATHOLOGY PATHOLOGY SURG 9 & & PATHOLOGY CYTOLOGY CYTOLOGY LAB LAB GROSS&IVAN ROSCOPIC EXAM ANES 01255 [facility] 9 ANESTH MAHOGANY F EXTREMITI OF THE ANT BLUEGRASS TRUNK & PERINEUM NOS EXCISION 72298 VLAD CANCINOENI 9 , CHANDA , CHANDA TIS INGUINAL SMPL/INTR M RPR THERAPEUT 97760 ANA PEREZ IC 9 [facility] INJECTION INC [place] [address] ANA PEREZ INFUSION 9 [facility] THERAPY INC INC PROPHYLAX IS/DX EA HOUR OTH LOC 863 ANA PEREZ EXC/DESTR 9 [facility] UC INC INC LES/TISSU E SKN&SUBCU T TISSUE EXCISION 93171 ANA PEREZ HIDRADENI 9 [facility] TIS INC INC INGUINAL COMPLEX REPAIR BASIC 48012 ANA PEREZ METABOLIC 9 [facility] PANEL INC INC CALCIUM TOTAL BLOOD 33824 ANA PEREZ COUNT 9 [facility] COMPLETE INC INC AUTO&AUTO DIFRNTL WBC GONADOTRO 80842 ANA PEREZ PIN 9 [facility] CHORIONIC INC INC QUALITATI VE CUL BACT 56765 COMBINED COMBINED XCPT 8 PHYSICIAN PHYSICIAN URINE S LAB S LAB BLOOD/STO OL AEROBIC ISOL CT PELVIS 19520 ANA PEREZ W/O 8 [facility] CONTRAST INC INC MATERIAL 3D 01233 ANA PEREZ RENDERING 8 [facility] INC INC W/INTERP& [place] [address] ANA PEREZ ABDOMEN 8 [facility] W/O INC INC CONTRAST MATERIAL URINE 45594 ANA PEREZ 8 [facility] TEST INC INC VISUAL COLOR CMPRSN METHS BASIC 41157 ANA PEREZ METABOLIC 8 [facility] PANEL INC INC CALCIUM TOTAL BLOOD 58450 ANA PEREZ COUNT 8 [facility] COMPLETE INC INC AUTO&AUTO DIFRNTL WBC URNLS DIP 47039 ANA PEREZ 8 [facility] STICK/TAB INC INC LET REAGENT AUTO MICROSCOP Y URINALYSI 79820 DAMARIS HAYWARD, Makenzie 8 MAINOR [place] MICROSCOP [place] NFUS 23868 ANA PEREZ THER 8 [facility] PROPH/DX INC INC EA HR BLOOD 75893 ANA PEREZ COUNT 8 [facility] COMPLETE INC INC AUTO&AUTO DIFRNTL WBC URNLS DIP 30983 ANA PEREZ 8 [facility] STICK/TAB INC INC LET REAGENT AUTO MICROSCOP Y IAADI 06914 ANA PEREZ INFFLUENZ 8 [facility] A A VIRUS INC INC IMMUNOASS 75568 ANA PEREZ AY NFCT 8 [facility] AGT ANTB INC INC QUAL/SEMI AMADEO 1 STEP IAADI 80505 ANA PEREZ INFLUENZA 8 [facility] [place] [address] ANA PEREZ STREPTOCO 8 [facility] CCUS INC INC GROUP A COMPREHEN 79115 ANA PEREZ SIVE 8 [facility] METABOLIC INC INC PANEL URINE 96391 ANA PEREZ 8 [facility] TEST INC INC [place] [address] ANA PEREZ THER 8 [facility] PROPH/DX INC INC 1ST >1 HR CULTURE 92466 ANAWU PEREZ BACTERIAL 8 [facility] INC INC [place]TT[place] [address] ANA PEREZ THER 8 [facility] PROPH/DX INC INC 1ST >1 HR ESOPHAGOG 4516 ANA ANA ASTRODUOD 8 [facility] ENOSCOPY INC INC WITH CLOSED BIOPSY OTH 8604 ANA PACHECOON INCISION 8 [facility] W/DRAINAG INC INC E SKIN&SUBC UTANEOUS TISSUE CUL BACT 13995 ANA PACHECOON XCPT 8 [facility] URINE INC INC BLOOD/STO OL AEROBIC ISOL BASIC 44411 ANA PEREZ METABOLIC 8 [facility] [place] [address] ANA PEREZ HPYLORI 8 [facility] [place] [address] PATHOLOGY PATHOLOGY SURG 8 & & PATHOLOGY CYTOLOGY CYTOLOGY LAB LAB GROSS&IVAN ROSCOPIC EXAM SPCL STN 57528 PATHOLOGY PATHOLOGY 2 I&R 8 & & EXCPT CYTOLOGY CYTOLOGY MICROORG/ LAB LAB ENZYME/IM CYT EGD 24873 ANA PEREZ TRANSORAL 8 [facility] BIOPSY INC INC SINGLE/[place] NFUS 01478 ANA PEREZ THER 8 [facility] PROPH/DX INC INC EA HR BLOOD 53315 ANA PEREZ COUNT 8 [facility] COMPLETE INC INC AUTO&AUTO DIFRNTL WBC SUSCEPTIB 03702 ANA PEREZ LTY STDY 8 [facility] ANTIMICRB INC INC IAL MICRO/AGA R DILUTJ RADEX 18100 [place] SREE, HUMERUS 8 MEDICAL PRATIBHA MINIMUM 2 IMAGING VIEWS ASSOCIATE S RADEX 58991 MARIALUISA SREE, FOREARM 2 8 MEDICAL PRATIBHA VIEWS IMAGING ASSOCIATE S RADEX 64600 MARIALUISA SREE, ELBOW 8 MEDICAL PRATIBHA COMPLETE IMAGING MINIMUM 3 ASSOCIATE VIEWS S RADEX 73010 MARIALUISA SREE, HAND 8 MEDICAL PRATIBHA MINIMUM 3 IMAGING VIEWS ASSOCIATE S RADEX 50876 MARIALUISA SREE, WRIST 8 MEDICAL PRATIBHA COMPLETE IMAGING MINIMUM 3 ASSOCIATE VIEWS S RADEX 80099 ANA PEREZ SMALL 8 [facility] INTESTINE INC INC W/[place] [address] ANA PEREZ CLOSTRIDI 8 [facility] [place] [address] ANA PEREZ GIARDIA 8 [facility] INC INC OVA&CHEO 96364 ANA PEREZ ITES 8 [facility] DIRECT INC INC SMEARS CONCENTRA TION & ID CUL BACT 22680 ANA PEREZ STOOL 8 [facility] AEROBIC INC INC ISOL [place] [address] ANA PEREZ THYROID 8 [facility] STIMULATI INC INC NG HORMONE TSH IIV3 31804 DHS/CO ANA VACCINE 8 [facility] VIRUS 0.5 BANK ACCT ML DOSAGE IM USE 61183 ANA PEREZ TRANSVAGI 8 [facility] NAL INC INC Encounters Encounter Start End Date Code Location Performer Type Date OFFICE 85489 [facility] HDZ OUTPATIEN 7 7 PHYSICIAN T NEW 30 S GROUP [facility] ANA Acuña 7 7 [facility] OUTPATIEN INC T EMERGENCY 74292 MARLINE LANGSTON DEPT 7 7 EMERGENCY VISIT HIGH PHYSICIAN SEVERITY& S THREAT [facility] OUTPATIEN INC T OFFICE 24325 NAA [place] 7 7 [facility] T VISIT 5 INC [facility] ANA - 7 7 [facility] OUTPATIEN INC T OFFICE 61035 ANA OUTPATIEN 7 7 [facility] T VISIT 5 INC [facility]UTES [facility]OS[facility] ANA - 7 7 [facility] - 7 7 [facility] - 7 7 [facility] 7 [facility] OUTPATIEN [facility] EMERGENCY 61149 EMERGENCY [facility] DEPT 7 7 MEDICINE VISIT HIGH PHYSICIAN SEVERITY& THREAT [facility] - 7 7 [facility] OUTPATIEN [facility] OFFICE 41403 [facility] JUAN OUTROBERTS [place] 7 7 PHYSICIAN T VISIT S GROUP 25 MINUTES OFFICE 58831 [facility] PHYSICIAN T VISIT S GROUP 25 MINUTES EMERGENCY 91077 [facility] 6 6 [facility] EMERGENCY T VISIT PHYSI MODERATE SEVERITY [facility] [place] - 6 6 N OUTPATIEN COMMUNTIY T HOSPITA EMERGENCY 65555 KEITH BRAVO 6 6 PHYSICIAN [facility] T VISIT HIGH/URGE NT SEVERITY HOSPITAL ANA - 6 6 [facility] OUTPATIEN INC T EMERGENCY 51408 ANA 6 6 [facility] DEPARTMEN INC T VISIT MODERATE SEVERITY HOSPITAL ANA - 6 6 [facility] OUTPATIEN INC EMERGENCY 09439 KEITH CROCKETT, 6 6 PHYSICIAN JR [facility] T VISIT HIGH/URGE NT SEVERITY HOSPITAL ANA - 6 6 [facility] OUTPATIEN INC [facility]OSPITAL ANA - 6 6 [facility] OUTPATIEN INC T OFFICE 01869 [facility] BJORN OUTPATIEN 6 6 PHYSICIAN IVAN T VISIT S GROUP 15 MINUTES OFFICE 45535 [facility] FRYMAN OUTPATIEN 6 6 PHYSICIAN EUG T VISIT S GROUP 25 MINUTES OFFICE 58746 [facility] BJORN OUTPATIEN 6 6 PHYSICIAN IVAN T VISIT S GROUP 25 MINUTES OFFICE 46136 ANA PIERRE OUTPATIEN 6 [facility] 25 MINUTES OFFICE 45486 ANA STARR OUTPATIEN [address] [facility] T VISIT HOSPITAL 15 MINUTES EMERGENCY 09640 KEITH LUZ 6 6 PHYSICIAN [facility] T VISIT MODERATE SEVERITY EMERGENCY 24232 ANA 6 6 [facility] DEPARTMEN INC T VISIT LOW/MODER SEVERITY HOSPITAL ANA - 6 6 [facility] OUTPATIEN [facility] T EMERGENCY 53910 KEITH LUZ 5 5 PHYSICIAN [facility] T VISIT HIGH/URGE NT SEVERITY EMERGENCY 42106 ANA 5 5 [facility] DEPARTMEN INC T VISIT HIGH/URGE NT SEVERITY EMERGENCY 27092 KEITH BRAVO DEPT 5 5 PHYSICIAN IVAN VISIT [facility] HIGH SEVERITY& TH[facility]AT [facility] - 5 5 [facility] OUTPATIEN INC T OFFICE 45072 ANA DAWKINS OUTPATIEN 5 5 [facility] T VISIT HOSPITAL 10 MINUTES OFFICE 16715 [facility] CHERISE TOD OUTPATIEN 5 5 PHYSICIAN T VISIT S GROUP 10 MINUTES HOSPITAL ANA - 5 5 [facility] OUTPATIEN INC T HOSPITAL ANA - 5 5 [facility] OUTPATIEN INC T OFFICE 89316 [facility] CHERISE TOD OUTPATIEN 5 5 PHYSICIAN T VISIT S GROUP 15 MINUTES OFFICE 31710 ANA MARIZA OUTPATIEN 5 5 [facility] T [facility] 15 MINUTES OFFICE 12675 [facility] BJORN OUTPATIEN 5 5 PHYSICIAN IVAN T VISIT S GROUP 15 MINUTES OFFICE 25807 [facility] BJORN OUTPATIEN 5 5 PHYSICIAN IVAN T VISIT S GROUP 10 MINUTES OFFICE 07760 [facility] BJORN OUTPATIEN 5 5 PHYSICIAN IVAN T VISIT S GROUP 15 MINUTES OFFICE 73212 [facility] BJORN OUTPATIEN 5 5 PHYSICIAN IVAN T VISIT S GROUP 15 MINUTES OFFICE 39858 [facility] BJORN OUTPATIEN 5 5 PHYSICIAN IVAN T VISIT S GROUP 10 MINUTES OFFICE 01301 [facility] BJORN OUTPATIEN 5 5 PHYSICIAN IVAN T VISIT S GROUP 25 MINUTES OFFICE 65308 [facility] BJORN OUTPATIEN 4 4 PHYSICIAN IVAN T VISIT S GROUP 10 MINUTES HOSPITAL ANA - 4 4 [facility] OUTPATIEN [facility] ANA - 4 4 [facility] OUTPATIEN INC OFFICE 16560 [facility] BJORN OUTPATIEN 4 4 PHYSICIAN IVAN T VISIT S GROUP 15 MINUTES EMERGENCY 81195 [facility] DEPT 4 4 ROBERT IVAN VISIT EMERGENCY HIGH PHYS SEVERITY& THREAT [facility] - [facility] OUTPATIEN INC OFFICE 40530 [facility] CHERISE TOD OUTPATIEN 4 4 PHYSICIAN T VISIT S GROUP 15 MINUTES OFFICE 17202 [facility] BJORN OUTPATIEN 4 4 PHYSICIAN IVAN T VISIT S GROUP 10 MINUTES [facility] ANA - 4 4 [facility] OUTPATIEN INC [facility] ANA - 4 4 [facility] OUTPATIEN INC T OFFICE 09216 [facility] CHERISE DIAL OUTPATIEN 4 4 PHYSICIAN T VISIT S GROUP 25 MINUTES HOSPITAL ANA - 4 4 [facility] OUTPATIEN [facility] ANA - 4 4 [facility] OUTPATIEN [facility] ANA [facility] 4 4 [facility] OUTPATIEN [facility] ANA [facility] 4 4 [facility] OUTPATIEN [facility] T OFFICE 55186 [facility] BJORN OUTPATIEN 4 4 PHYSICIAN IVAN T VISIT S GROUP 10 MINUTES HOSPITAL ANA - 4 4 [facility] OUTPATIEN [facility] ANA [facility] 4 4 [facility] OUTPATIEN [facility] ANA - 4 4 [facility] OUTPATIEN [facility] ANA - 4 4 [facility] OUTPATIEN [facility] ANA [facility] 4 4 [facility] OUTPATIEN [facility] OFFICE 77575 BJORN BJORN CRANEPATIEN 4 4 IVAN IVAN T VISIT 10 MINUTES EMERGENCY 64396 ALFARIS ALFARIS 4 4 [facility] DEPARTMEN T VISIT HIGH/URGE NT SEVERITY OFFICE 46322 [facility] BJORN CRANEPATIEN 4 4 PHYSICIAN IVAN T VISIT S GROUP 15 MINUTES EMERGENCY 99169 SOKAN BAB SOKAN BAB 4 4 DEPARTMEN T VISIT HIGH/URGE NT SEVERITY OFFICE 16223 [facility] BJORN CRANEPATIEN 4 4 PHYSICIAN IVAN T VISIT S GROUP 10 MINUTES EMERGENCY 95123 BJORN BRAVO DEPT 4 4 IVAN IVAN VISIT HIGH SEVERITY& THREAT FUNCJ OFFICE 43234 [facility] BJORN CRANEPATIEN 4 4 PHYSICIAN IVAN T VISIT S GROUP 10 MINUTES OFFICE 15210 [facility] BJORN OUTPATIEN 4 4 PHYSICIAN IVAN T VISIT S GROUP 10 MINUTES OFFICE 89778 [facility] BJORN OUTPATIEN 4 4 PHYSICIAN IVAN T VISIT 5 S GROUP MINUTES OFFICE 75038 [facility] BJORN OUTPATIEN 4 4 PHYSICIAN IVAN T VISIT S GROUP 10 MINUTES HOSPITAL ANA - 4 4 [facility] OFFICE 90166 BJORN BJORN OUTPATIEN 4 4 IVAN IVAN T VISIT 10 MINUTES EMERGENCY 36431 BJORN BJORN 4 4 IVAN IVAN DEPARTMEN T VISIT HIGH/URGE NT SEVERITY OFFICE 43113 [facility] OUTPATIEN 4 4 PHYSICIAN T VISIT S GROUP 15 MINUTES OFFICE 85886 BJORN BJORN OUTPATIEN 4 4 IVAN IVAN T VISIT 10 MINUTES HOSPITAL ANA - 3 3 [facility] AAN - 3 3 [facility] ANA [facility] 3 3 [facility] ANA [facility] 3 3 [facility] ANA - 3 3 [facility] Emergency BELGICA Bravo MD (ER) 3 20:45 3 21:00 [facility] ANA - 3 3 [facility] ANA - 3 3 [facility] ANA - 3 3 [facility] ANA - 3 3 [facility] ANA [facility] 3 3 [facility] ANA - 3 3 [facility] OUTPATIEN INC T OFFICE 89060 BJORN BJORN OUTPATIEN 3 3 IVAN IVAN T VISIT 10 MINUTES HOSPITAL ANA - 3 3 [facility]PATI[facility] INC T OFFICE 15280 VLAD CHU OUTPATIEN 3 3 JELENA JELENA T VISIT 10 MINUTES OFFICE 57788 BJORN BRAVO OUTPATIEN 3 3 IVAN IVAN T NEW 30 MINUTES HOSPITAL ANA - 3 3 [facility] OUT[facility] INC T Emergency BELGICA Plunkett MD (ER) 3 09:07 3 12:31 [facility] EMERGENCY 21047 ADAN ARELLANO 3 3 JOHNATHAN JOHNATHAN DEPARTMEN T VISIT MODERATE SEVERITY Emergency BELGICA Plunkett MD (ER) 3 13:06 3 13:51 [facility] OFFICE 69125 FIELD AMB FIELD AMB OUTPATIEN 3 3 T VISIT 15 MINUTES EMERGENCY 16518 KIARRA DARNELL 3 3 DEPARTMEN T VISIT HIGH/URGE NT SEVERITY OFFICE 35723 [facility] OUTPATIEN 3 3 PHYSICIAN T VISIT S GROUP 15 MINUTES OFFICE 97178 [facility] CONSULTAT 3 3 SALUD SALUD ION NEW/ESTAB PATIENT 40 MIN Emergency BELGICA Bravo MD (ER) 3 00:01 3 00:25 [facility] EMERGENCY 60715 ANA 3 3 [facility] DEPARTMEN INC T VISIT LOW/MODER SEVERITY HOSPITAL ANA - 3 3 [facility] OUTPATIEN INC T EMERGENCY 64521 BJORN BRAVO 3 3 IVAN IVAN DEPARTMEN T VISIT MODERATE SEVERITY OFFICE 75705 JE [facility] OUTPATIEN 3 3 T VISIT 15 MINUTES OFFICE 17704 SAQIB SAQIB OHARA 3 3 BONY BONY T VISIT 15 MINUTES OFFICE 43687 [facility] SAQIB OUTTIFFANIEEN 3 3 BONY BONY T VISIT 15 MINUTES Emergency BELGICA Bravo MD (ER) 3 21:18 3 21:50 [facility] EMERGENCY 26114 BJORN BRAVO 3 3 [facility] DEPARTMEN T VISIT HIGH/URGE NT SEVERITY OFFICE 59113 [facility] OUTPATIEN 3 3 PHYSICIAN T VISIT S GROUP 15 MINUTES Emergency BELGICA Roque (ER) 3 14:52 3 17:36 [facility] EMERGENCY 92526 ANA 3 3 [facility] DEPARTMEN INC T VISIT HIGH/URGE NT SEVERITY HOSPITAL ANA - 3 3 [facility] OUT[facility] INC T Emergency BELGICA ARNDT MD (ER) 3 18:13 3 20:03 [facility] EMERGENCY 12831 ANA 3 3 [facility] DEPARTMEN INC T VISIT LOW/MODER SEVERITY EMERGENCY 35917 SISI ARNDT 3 3 EMERGENCY [facility] SERVICES T VISIT MODERATE SEVERITY HOSPITAL ANA - 3 3 [facility] T OFFICE 17013 PETTEY PETTEY OUTPATIEN 3 3 JAM JAM T VISIT 15 MINUTES OFFICE 90186 SCHULSTAD SCHULSTAD OUTPATIEN 3 3 JELENA JELENA T VISIT 25 MINUTES HOSPITAL ANA - 3 3 [facility] T OFFICE 07307 SAQIB OHARA 3 3 BONY BONY T NEW 30 MINUTES HOSPITAL ANA - 2 2 [facility] INC T OFFICE 85782 GLORIA GLORIA OUTPATIEN 2 2 IJEOMA RAPHAEL T VISIT 10 MINUTES OFFICE 85796 ADAN ARELLANO OUTPATIEN 2 2 JOHNATHAN MANN T VISIT 15 MINUTES EMERGENCY 00926 BJORN BRAVO 2 2 [facility] DEPARTMEN T VISIT MODERATE SEVERITY HOSPITAL ANA - 2 2 [facility] OUT[facility] INC T EMERGENCY 90137 SISI MELCHOR 2 2 EMERGENCY SAFIA DEPARTMEN SERVICES T VISIT HIGH/URGE NT SEVERITY OFFICE 65889 JOHNNA OROPEZA OUTPATIEN 2 2 DON DON T NEW 20 MINUTES EMERGENCY 97299 DEYANIRA MCMILLAN 2 2 III AYANA III AYANA DEPARTMEN T VISIT HIGH/URGE NT SEVERITY EMERGENCY 10064 ANA 2 2 [facility] DEPARTMEN INC T VISIT MODERATE SEVERITY HOSPITAL ANA - 2 2 [facility] OUTPATIEN INC T EMERGENCY 88806 ANA 2 2 [facility] DEPARTMEN INC T VISIT LOW/MODER SEVERITY EMERGENCY 06912 SISI BRAVO 2 2 [facility] T VISIT HIGH/URGE NT SEVERITY HOSPITAL ANA - 2 2 [facility] OUTPATIEN INC T HOSPITAL ANA - 2 2 [facility] OUTPATIEN INC T OFFICE 94465 VLAD CHU CONSULTAT 2 2 JELENA JELENA ION NEW/ESTAB PATIENT 60 MIN HOSPITAL ANA - 2 2 [facility] OUTPATIEN INC T OFFICE 62778 ALYSSA SHAH OUTPATIEN 2 2 SALUD SALUD T VISIT 25 MINUTES EMERGENCY 78098 SISI BRAVO 2 2 [facility] T VISIT HIGH/URGE NT SEVERITY EMERGENCY 03778 ANA 2 2 [facility] DEPARTMEN INC T VISIT LOW/MODER SEVERITY HOSPITAL ANA - 2 2 [facility] OUTPATIEN INC T OFFICE 14394 HOANG GLORIA JUSTIN OUTPATIEN 2 2 T VISIT 15 MINUTES HOSPITAL ANA - 2 2 [facility] OUTPATIEN INC T OFFICE 75563 PETBETTYE RIVERA OUTPATIEN 2 2 JAM JAM T NEW 30 MINUTES OFFICE 90165 HOANG GLORIA JUSTIN OUTPATIEN 2 2 T NEW 30 MINUTES EMERGENCY 20470 HAAKE BRA HAAKE BRA 1 1 DEPARTMEN T VISIT HIGH/URGE NT SEVERITY EMERGENCY 44698 SISI AGUILERA, 0 0 EMERGENCY GASTONIA DEPARTMEN SERVICES T VISIT HIGH/URGE ASSOCIATE NT S [facility] H[facility] ANA - 0 0 [facility] OUTPATIEN [facility] T EMERGENCY 66850 ANA 0 0 [facility] VISIT LOW/MODER SEVERITY OFFICE 98125 [facility] [place] Gasper T VISIT INTERNAL 25 MED MINUTES HOSPITAL ANA - 0 0 [facility] OUTPATIEN [facility] T EMERGENCY 38676 SISI PLUNKETT, DEPT 0 0 EMERGENCY BRIAN VISIT SERVICES O HIGH SEVERITY& ASSOCIATE THREAT S [facility] HOSP[facility] ANA - 0 0 [facility] OUTPATIEN [facility] T EMERGENCY 24904 ANA 0 0 [facility] DEPARTMEN INC T VISIT HIGH/URGE NT SEVERITY HOSPITAL UNIVERSIT - [address] [facility] T OFFICE 83011 RIZWANA WAGONER [place] [place] 9 9 MEDARDO Mcnamara T NEW 30 MINUTES HOSPITAL ANA - 9 9 [facility] OUTPATIEN INC T EMERGENCY 94461 ANA 9 9 [facility] DEPARTMEN [facility] T VISIT MODERATE SEVERITY EMERGENCY 00135 SISI GARCIA, DEPT 9 9 EMERGENCY RONDAL E VISIT SERVICES HIGH SEVERITY& ASSOCIATE THREAT S [facility] 9 [facility] OUTPATIEN [facility] T EMERGENCY 21232 ANA 9 9 [facility] T VISIT MODERATE SEVERITY EMERGENCY 15608 SISI PLUNKETT, DEPT 9 9 EMERGENCY BRIAN VISIT SERVICES O HIGH SEVERITY& ASSOCIATE THREAT S [facility] 9 9 [facility] OUTPATIEN [facility] T HOSPITAL ANA - 9 9 [facility] T OFFICE 72099 MAYDA MOBLEY 8 8 [place] GLEASON T VISIT INTERNAL 10 MED MINUTES HOSPITAL ANA - 8 8 [facility] T OFFICE 23799 BLAYNE PRCIE 8 8 [facility] VIJAY [facility]TA UROLOGY NEW/ESTAB PSC PATIENT 40 MIN EMERGENCY 20900 ANA 8 8 [facility] T VISIT MODERATE SEVERITY HOSPITAL ANA - 8 8 [facility] 14080 MAYDA DOMINGUEZ 8 8 MAINOR Parker T VISIT 25 MINUTES OFFICE 56496 MAYDA HAWKINS 8 8 AKBAR CHAVEZ R T VISIT SERV 15 FOUNDATIO MINUTES HOSPITAL ANA - 8 8 [facility] OUTPATIEN [facility] T EMERGENCY 40694 ANA 8 8 [facility] T VISIT HIGH/URGE NT SEVERITY OFFICE 34232 MAYDA WOO 8 8 [place] Jackman T VISIT INTERNAL 15 MED MINUTES EMERGENCY 98246 ANA 8 8 [facility] V[facility] HIGH/URGE NT SEVERITY HOSPITAL ANA - 8 8 [facility] OUTPATIEN [facility] ANA [facility] 8 8 [facility] OUTPAT[facility]EN [facility] OFFICE 50975 [facility] [place]UTR[facility] [place] 8 8 [place] HANC[place] T VISIT INTERNAL MAHOGANY F 15 MED MINUTES [facility] ANA [facility] 8 8 [facility] OUTPATIEN [facility] ANA - 8 8 [facility] OUTPAT[facility] ANA - 8 8 [facility] OUTPATIEN [facility] ANA [facility] 8 8 [facility] OUTPATIEN [facility] OFFICE 12135 MAYDA DOMINGUEZ 8 8 MAINOR Cole VISIT 15 MINUTES
--- OUTSIDE RECORDS SUMMARY | 2017-03-02 08:04 | External Medical Summary Rpt | CCD ---
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 HR DRUG 59470 ANA PEREZ SCREEN 3 [facility] QUANTITAT [place] [address] ANA ANA INFUSION 3 [facility] THERAPY/P INC INC ROPHYLAXI S /DX 1ST [place] [address] ANA ANA INFUSION 3 [facility] THERAPY/P INC INC ROPHYLAXI S /DX 1ST TO [place] [address] ANA ANA INFUSION 3 [facility] THERAPY INC [place] [address] ANA ANA INFUSION 3 [facility] THERAPY INC INC PROPHYLAX IS/DX EA HOUR DRUG 01772 ANA PEREZ SCREEN 3 [facility] QUANTITAT [place] [address] ANA PEREZ INFUSION 3 [facility] THERAPY/P INC INC ROPHYLAXI S /DX 1ST TO 1 [place] [address] ANAWU PEREZ INFUSION 3 [facility] HYDRATION INC INC INITIAL 31 MIN-[place] [address] ANA PEREZ INFUSION 3 [facility] THERAPY INC [place] [address] ANA PEREZ INFUSION 3 [facility] THERAPY INC [place] [address] ANA PEREZ INFUSION 3 [facility] THERAPY/P INC INC ROPHYLAXI S /DX 1ST TO 1 [place] [address] ANAUW PEREZ INFUSION 3 [facility] THERAPY INC [place] [address] ANA PEREZ INFUSION 3 [facility] THERAPY/P INC INC ROPHYLAXI S /DX 1ST TO [place] [address] ANAWU PEREZ INFUSION 3 [facility] THERAPY/P INC INC ROPHYLAXI S /DX 1ST TO 1 HR CREATININ 12227 ANA PEREZ E BLOOD 3 [facility] [place] [address] ANAWU PEREZ INFUSION 3 [facility] THERAPY INC INC PROPHYLAX IS/DX EA HOUR CUL BACT 38511 ANA PEREZ AEROBIC 3 [facility] ADDL INC INC METHS DEFINITIV E EA ISOL CUL BACT 72090 ANA PEREZ XCPT 3 [facility] URINE INC INC BLOOD/STO OL AEROBIC ISOL SUSCEPTIB 23552 ANA PEREZ LTY STDY 3 [facility] ANTIMICRB INC INC IAL MICRO/AGA R DILUTJ BLOOD 58934 ANA PEREZ COUNT 3 [facility] COMPLETE INC INC AUTO&AUTO DIFRNTL WBC HEMOGLOBI 51337 ANA PEREZ N 3 [facility] GLYCOSYLA INC INC CRISTIANO A1C COMPREHEN 78408 ANA PEREZ SIVE 3 [facility] METABOLIC INC INC PANEL INCISION 55873 RAQUELONIEL VLAD & 3 JELENA JELENA DRAINAGE ABSCESS SIMPLE/SI NGLE THERAPEUT 65794 [facility] IC 3 PHYSICIAN PHYSICIAN PROPHYLAC S GROUP S GROUP TIC/DX INJECTION SUBQ/IM INJECTION J1100 [facility] 3 PHYSICIAN PHYSICIAN DEXAMETHO S GROUP S GROUP SONE SODIUM PHOSPHATE 1 MG URNLS DIP 48275 [facility] 3 PHYSICIAN PHYSICIAN STICK/TAB S GROUP S GROUP LET RGNT NON-AUTO W/O MICRSCP COMPREHEN 23755 ANA PEREZ SIVE 3 [facility] METABOLIC INC INC PANEL BLOOD 22858 ANA PEREZ COUNT 3 [facility] COMPLETE INC INC AUTO&[place] [address] ANA PEREZ INFUSION 3 [facility] THERAPY/P INC INC ROPHYLAXI S /DX 1ST TO 1 HR SUSCEPTIB 42194 ANA PEREZ LTY STDY 3 [facility] ANTIMICRB INC INC IAL MICRO/AGA R DILUTJ URNLS DIP 08969 ANA PEREZ 3 [facility] STICK/TAB INC INC [place] [address] ANA PEREZ LIPASE 3 [facility] INC INC THERAPEUT 97489 ANA PEREZ IC 3 [facility] INJECTION [place] [address] ANA PEREZ INFUSION 3 [facility] THER INC INC PROPH ADDL SEQUENTIA L TO 1 HR INJECTION J2405 ANA PEREZ 3 [facility] ONDANSETR INC INC ON HCL PER 1 MG URINE 83490 ANA PEREZ 3 [facility] TEST INC INC VISUAL COLOR CMPRSN METHS CULTURE 22834 ANA PEREZ BACTERIAL 3 [facility] INC INC QUANTTATI VE COLONY COUNT URINE CULTURE 77662 ANA PEREZ BCT 3 [facility] ISOL&PRSM INC INC PTV ID ISOLATE EA URINE ANES 35744 [facility] INTEG 3 ANESTH EXTREMITI OF THE ES ANT BLUE TRUNK & PERINEUM NOS EXCISION 80619 VLAD CHU HIDRADENI 3 JELENA JELENA TIS INGUINAL SMPL/[place] [address] SISI LAIRD SURG 3 JENNY JENNY PATHOLOGY GROSS&IVAN ROSCOPIC EXAM DETERMINA 62332 SISI LAIRD TION 3 GRE GRE REFRACTIV E STATE OPHTH 95000 SISI SISI MEDICAL 3 GRE GRE XM&EVAL COMPRE NEW PT 1/> VST BLOOD 45104 ANAWU PEREZ COUNT 3 [facility] COMPLETE INC INC AUTO&AUTO DIFRNTL WBC GONADOTRO 98577 ANA PEREZ PIN 3 [facility] CHORIONIC INC INC QUALITATI VE IIV3 67698 GLORIA GLORIA VACCINE 2 IJEOMA IJEOMA SPLIT VIRUS 0.5 ML DOSAGE IM USE IM ADM 41205 GLORIA GLORIA PRQ ID 2 IJEOMA IJEOMA SUBQ/IM NJXS 1 VACCINE RADEX 07617 ANA ANA FOREARM 2 2 [facility] VIEWS INC INC RADEX 03668 ANA PEREZ ELBOW 2 [facility] COMPLETE INC INC MINIMUM 3 VIEWS CUL BACT 77344 ANA PEREZ XCPT 2 [facility] URINE INC INC BLOOD/STO OL AEROBIC ISOL INCISION 89856 BJORN BJORN & 2 IVAN IVAN DRAINAGE ABSCESS SIMPLE/SI NGLE RADEX 42932 [facility] [place] [facility] FOREARM 2 2 RADIOLOGY RHO VIEWS RADEX 13504 [facility] [place] [facility] RIBS UNI 2 RADIOLOGY RHO W/POSTERO ANT CH MINIMUM 3 VIEWS RADEX 06911 [facility] [place] [facility] SPINE 2 RADIOLOGY RHO THORACIC 3 VIEWS RADEX 71357 [place] ELBOW 2 MEDICAL DONIS COMPLETE IMAGING MINIMUM 3 ASS VIEWS RADEX 31508 [facility] S[facility] ANKLE 2 MEDICAL DONIS COMPLETE IMAGING MINIMUM 3 ASS VIEWS IM ADM 73488 ANA PEREZ PRQ ID 2 [facility] SUBQ/IM INC INC NJXS 1 VACCINE TDAP 06425 ANA PEREZ VACCINE 7 2 [facility] YRS/> IM INC INC SLINGS A4565 [facility] 2 SUSCEPTIB 97003 ANA PEREZ LTY STDY 2 [facility] ANTIMICRB INC INC IAL [place]CRO/[place] [address] ANA PEREZ INFUSION 2 [facility] THERAPY/P INC INC ROPHYLAXI S /DX 1ST TO 1 HR LEVEL III 79528 PATHOLOGY YANCEY SURG 2 & BONY PATHOLOGY CYTOLOGY LAB GROSS&IVAN ROSCOPIC EXAM INCISION 42433 VLAD CHU & 2 JELENA JELENA DRAINAGE ABSCESS COMPLICAT ED/MULTIP LE INCISION 62878 ANAWU PACHECOON & 2 [facility] DRAINAGE INC INC ABSCESS SIMPLE/SI NGLE CUL BACT 64618 ANA PEREZ AEROBIC 2 [facility] ADDL INC [place] [address] ANA PEREZ INFUSION 2 [facility] THERAPY INC INC PROPHYLAX IS/DX EA HOUR THERAPEUT 94189 ANA PEREZ IC 2 [facility] INJECTION INC INC IV PUSH EACH NEW DRUG CUL BACT 03317 ANA CERON XCPT [address] [facility] OMI URINE INC BLOOD/STO OL AEROBIC ISOL CULTURE 96284 ANA ANA BACTERIAL 2 [facility] ANY INC INC SOURCE ANAEROBIC ISO&ID ANES 02827 [facility] 2 ANESTH IJEOMA EXTREMITI OF THE ES ANT BLUE TRUNK & PERINEUM NOS BASIC 55777 ANA PEREZ METABOLIC 2 [facility] PANEL INC INC CALCIUM TOTAL URINE 44363 ANA PEREZ 2 [facility] TEST INC INC VISUAL COLOR CMPRSN METHS BLOOD 95948 ANA PEREZ COUNT 2 [facility] COMPLETE INC INC AUTO&AUTO DIFRNTL WBC SUSCEPTIB 15512 ANA PEREZ LTY STDY 2 [facility] ANTIMICRB INC INC IAL MICRO/AGA R DILUTJ INCISION 24118 ANA PEREZ & 2 [facility] DRAINAGE INC INC ABSCESS SIMPLE/SI NGLE INCISION 61871 SISI BRAVO & 2 [facility] [employer] ABSCESS COMPLICAT ED/MULTIP LE CUL BACT 32149 ANAWU PEREZ XCPT 2 [facility] URINE INC INC BLOOD/STO OL AEROBIC ISOL CUL BACT 89126 ANA PEREZ AEROBIC 2 [facility] ADDL INC INC METHS DEFINITIV E EA ISOL ETONOGEST J7307 ALYSSA SHAH REL 2 SALUD SALUD CNTRACPT IMPL SYS INCL IMPL & SPL REMOVAL 43302 ALYSSA SHAH NON-BIODE 2 SALUD SALUD GRADABLE DRUG DELIVERY IMPLANT URINE 81060 ALYSSA SHAH 2 SALUD SALUD TEST VISUAL COLOR CMPRSN METHS RADEX 16355 ANA PERZE FOREARM 2 2 [facility] VIEWS INC INC REMOVAL 42614 ALYSSA SHAH INTRAUTER 2 SALUD SALUD INE DEVICE IUD I&D 68778 HAAKE BRA HAAKE BRA VULVA/PER 1 INEAL ABSCESS OTH 8604 ANA PEREZ INCISION 0 [facility] W/DRAINAG INC INC E SKIN&SUBC UTANEOUS TISSUE CUL BACT 60339 ANA PEREZ AEROBIC 0 [facility] ADDL INC INC METHS DEFINITIV E EA ISOL CUL BACT 70585 ANA PEREZ XCPT 0 [facility] URINE INC INC BLOOD/STO OL AEROBIC ISOL INCISION 45115 SISI AGUILERA, & 0 [facility] [place] DRAINAGE SERVICES M ABSCESS SIMPLE/SI ASSOCIATE NGLE S SUSCEPTIB 70075 ANA PEREZ LTY STDY 0 [facility] ANTIMICRB INC [place] IAL [place]CRO/[place] [address] WOMEN'S ALYSSA TRANSVAGI 0 [facility] [place] [address] ANA PEREZ THYROID 0 [facility] STIMULATI INC INC NG HORMONE TSH COMPREHEN 37139 ANA PEREZ SIVE 0 [facility] METABOLIC INC INC PANEL SUSCEPTIB 40234 ANA PEREZ LTY STDY 0 [facility] ANTIMICRB INC INC IAL MICRO/AGA R DILUTJ URNLS DIP 88500 ANA PEREZ 0 [facility] STICK/TAB INC INC LET REAGENT AUTO MICROSCOP Y BLOOD 23656 ANA PEREZ COUNT 0 [facility] COMPLETE INC INC AUTO&AUTO DIFRNTL WBC CULTURE 48005 ANA PEREZ BCT 0 [facility] ISOL&PRSM INC INC PTV ID ISOLATE EA URINE CULTURE 68916 ANA PEREZ BACTERIAL 0 [facility] INC [place] [address] ANA PEREZ INFUSION 0 [facility] THERAPY INC INC PROPHYLAX IS/DX EA HOUR URINE 75943 ANA PEREZ 0 [facility] TEST INC INC VISUAL COLOR CMPRSN METHS BASIC 93273 ANA PEREZ METABOLIC 0 [facility] [address] ANA PEREZ INFUSION 0 [facility] THERAPY/P INC INC ROPHYLAXI S /DX 1ST TO 1 HR BLOOD 09404 ANA PEREZ COUNT 0 [facility] COMPLETE INC INC AUTO&[place] [address] ANA PEREZ INFUSION 0 [facility] THER INC INC PROPH ADDL SEQUENTIA L TO 1 HR URNLS DIP 33720 ANA PEREZ 0 [facility] STICK/TAB INC INC LET REAGENT AUTO MICROSCOP Y US PELVIC 00326 ANA PEREZ 0 [facility] NONOBSTET INC INC BONY REAL-TIME IMAGE COMPLETE RADEX 89378 [place] V[place], FOOT 9 MEDICAL HOA N COMPLETE SERV MINIMUM 3 FOUNDATIO VIEWS IADNA 57347 MEDICAL MEDICAL CHLAMYDIA 9 [facility] TRACHOMAT IS AMPLIFIED PROBE TQ IADNA 07832 MEDICAL MEDICAL NEISSERIA 9 [facility] GONORRHOE AE AMPLIFIED PROBE TQ IAADI 69930 ANA PEREZ INFLUENZA 9 [facility] B VIRUS INC INC IAADI 88035 ANA PEREZ INFFLUENZ 9 [facility] A A VIRUS INC INC SUSCEPTIB 94663 ANA PEREZ LTY STDY 9 [facility] ANTIMICRB INC INC IAL MICRO/AGA R DILUTJ URNLS DIP 67794 ANA PEREZ 9 [facility] STICK/TAB INC INC LET REAGENT AUTO MICROSCOP Y CULTURE 40447 ANA ANA BACTERIAL 9 [facility] INC INC QUANTTATI VE COLONY COUNT URINE CULTURE 24596 ANA PEREZ BCT 9 [facility] ISOL&PRSM INC INC PTV ID ISOLATE EA URINE URINE 10801 ANA PEREZ 9 [facility] TEST INC INC VISUAL COLOR CMPRSN METHS URINE 26842 ANA ANA 9 [facility] TEST INC INC VISUAL COLOR CMPRSN METHS URNLS DIP 21123 ANAWU PEREZ 9 [facility] STICK/TAB INC [place] [address] ANA PEREZ INFUSION 9 [facility] THERAPY/P INC INC ROPHYLAXI S /DX 1ST TO 1 HR LEVEL III 81455 PATHOLOGY PATHOLOGY SURG 9 & & PATHOLOGY CYTOLOGY CYTOLOGY LAB LAB GROSS&IVAN ROSCOPIC EXAM ANES 57635 [facility] 9 ANESTH MAHOGANY F EXTREMITI OF THE ANT BLUEGRASS TRUNK & PERINEUM NOS EXCISION 77373 VLAD CANCINOENI 9 , CHANDA , CHANDA TIS INGUINAL SMPL/INTR M RPR THERAPEUT 87377 ANA PEREZ IC 9 [facility] INJECTION [place] [address] ANA PEREZ INFUSION 9 [facility] THERAPY INC INC PROPHYLAX IS/DX EA HOUR OTH LOC 863 ANA PEREZ EXC/DESTR 9 [facility] UC INC INC LES/TISSU E SKN&SUBCU T TISSUE EXCISION 92016 ANA PEREZ HIDRADENI 9 [facility] TIS INC INC INGUINAL COMPLEX REPAIR BASIC 38390 ANA PEREZ METABOLIC 9 [facility] PANEL INC INC CALCIUM TOTAL BLOOD 00867 ANA PEREZ COUNT 9 [facility] COMPLETE INC INC AUTO&AUTO DIFRNTL WBC GONADOTRO 08417 ANA PEREZ PIN 9 [facility] CHORIONIC INC INC QUALITATI VE CUL BACT 80312 COMBINED COMBINED XCPT 8 PHYSICIAN PHYSICIAN URINE S LAB S LAB BLOOD/STO OL AEROBIC ISOL CT PELVIS 80002 ANA PEREZ W/O 8 [facility] CONTRAST INC INC MATERIAL 3D 83718 ANA PEREZ RENDERING 8 [facility] INC INC W/INTERP& [place] [address] ANA PEREZ ABDOMEN 8 [facility] W/O INC INC CONTRAST MATERIAL URINE 32741 ANA PEREZ 8 [facility] TEST INC INC VISUAL COLOR CMPRSN METHS BASIC 86887 ANA PEREZ METABOLIC 8 [facility] PANEL INC INC CALCIUM TOTAL BLOOD 94262 ANA PEREZ COUNT 8 [facility] COMPLETE INC INC AUTO&AUTO DIFRNTL WBC URNLS DIP 00605 ANA PEREZ 8 [facility] STICK/TAB INC INC LET REAGENT AUTO MICROSCOP Y URINALYSI 62998 DAMARIS HAYWARD, Makenzie 8 [place] [place] NF[place] [address]3469 ANA PEREZ THER 8 [facility] PROPH/DX INC INC EA HR BLOOD 19557 ANA PEREZ COUNT 8 [facility] COMPLETE INC INC AUTO&AUTO DIFRNTL WBC URNLS DIP 22177 ANA PEREZ 8 [facility] STICK/TAB INC INC LET REAGENT AUTO MICROSCOP Y IAADI 84967 ANA PEREZ INFFLUENZ 8 [facility] A A VIRUS INC INC IMMUNOASS 48793 ANA PEREZ AY NFCT 8 [facility] AGT ANTB INC INC QUAL/SEMI AMADEO 1 STEP IAADI 66170 ANA PEREZ INFLUENZA 8 [facility] [place] [address] ANA PEREZ STREPTOCO 8 [facility] CCUS INC INC GROUP A COMPREHEN 71615 ANA PEREZ SIVE 8 [facility] METABOLIC INC INC PANEL URINE 99552 ANA PEREZ 8 [facility] TEST INC [place] [address] ANA PEREZ THER 8 [facility] PROPH/DX INC INC 1ST >1 HR CULTURE 54117 ANAWU PEREZ BACTERIAL 8 [facility] INC INC [place] [address] ANA PEREZ THER 8 [facility] PROPH/DX INC INC 1ST >1 HR ESOPHAGOG 4516 ANA ANA ASTRODUOD 8 [facility] ENOSCOPY INC INC WITH CLOSED BIOPSY OTH 8604 ANA PACHECOON INCISION 8 [facility] W/DRAINAG INC INC E SKIN&SUBC UTANEOUS TISSUE CUL BACT 79347 ANA PACHECOON XCPT 8 [facility] URINE INC INC BLOOD/STO OL AEROBIC ISOL BASIC 06229 ANA PEREZ METABOLIC 8 [facility] [place] [address] ANA PEREZ HPYLORI 8 [facility] [place] [address] PATHOLOGY PATHOLOGY SURG 8 & & PATHOLOGY CYTOLOGY CYTOLOGY LAB LAB GROSS&IVAN ROSCOPIC EXAM SPCL STN 38121 PATHOLOGY PATHOLOGY 2 I&R 8 & & EXCPT CYTOLOGY CYTOLOGY MICROORG/ LAB LAB ENZYME/IM CYT EGD 28846 ANA PEREZ TRANSORAL 8 [facility] BIOPSY INC INC SINGLE/MU LTIPLE IV NFUS 08642 ANA PEREZ THER 8 [facility] PROPH/DX INC INC EA HR BLOOD 68510 ANA PEREZ COUNT 8 [facility] COMPLETE INC INC AUTO&AUTO DIFRNTL WBC SUSCEPTIB 23653 ANA PEREZ LTY STDY 8 [facility] ANTIMICRB INC INC IAL MICRO/AGA R DILUTJ RADEX 79310 [place] SREE, HUMERUS 8 MEDICAL PRATIBHA MINIMUM 2 IMAGING VIEWS ASSOCIATE S RADEX 67765 MARIALUISA SREE, FOREARM 2 8 MEDICAL PRATIBHA VIEWS IMAGING ASSOCIATE S RADEX 09661 MARIALUISA SREE, ELBOW 8 MEDICAL PRATIBHA COMPLETE IMAGING MINIMUM 3 ASSOCIATE VIEWS S RADEX 39204 MARIALUISA SREE, HAND 8 MEDICAL PRATIBHA MINIMUM 3 IMAGING VIEWS ASSOCIATE S RADEX 94770 MARIALUISA SREE, WRIST 8 MEDICAL PRATIBHA COMPLETE IMAGING MINIMUM 3 ASSOCIATE VIEWS S RADEX 08979 [facility]NA [facility] SMALL 8 [facility] INTESTINE INC INC W/[place] [address] ANA [facility] CLOSTRIDI 8 [facility] [place] [address] ANA [facility] GIARDIA 8 [facility] INC INC OVA&CHEO 03479 ANA [facility] ITES 8 [facility] DIRECT INC INC SMEARS CONCENTRA TION & ID CUL BACT 45220 ANA [facility] STOOL 8 [facility] AEROBIC INC INC ISOL [place] [address] ANA [facility] THYROID 8 [facility] STIMULATI INC INC NG HORMONE TSH IIV3 43939 DHS/CO ANA VACCINE 8 [facility] VIRUS 0.5 BANK ACCT ML DOSAGE IM USE 91213 ANA [facility] TRANSVAGI 8 [facility] NAL INC INC Encounters Encounter Start End Date Code Location Performer Type Date OFFICE 13127 [facility] HDZ OUTPATIEN 7 7 PHYSICIAN T NEW 30 S GROUP [facility] ANA Acuña 7 7 [facility] OUTPATIEN INC T EMERGENCY 88306 MARLINE [place] DEPT 7 7 EMERGENCY VISIT HIGH PHYSICIAN SEVERITY& S THREAT [email or web address] ANA Acuña 7 7 [facility] OUTPATIEN INC T OFFICE 69292 ANA [place] 7 7 [facility] T VISIT 5 INC [facility] ANA - 7 7 [facility] OUTPATIEN INC T OFFICE 42158 ANA OUTPATIEN 7 7 [facility] T VISIT 5 INC [facility] ANA - 7 7 [facility] - 7 7 [facility] - 7 7 [facility] OUTPATIEN [facility] EMERGENCY 16492 EMERGENCY [facility] DEPT 7 7 MEDICINE VISIT HIGH PHYSICIAN SEVERITY& THREAT [facility] [[email or web address] ANA [facility] 7 7 [facility] OUTPATIEN [facility] OFFICE 34159 [facility] 7 PHYSICIAN T VISIT S GROUP 25 MINUTES OFFICE 33951 [facility] T VISIT S GROUP 25 MINUTES EMERGENCY 62274 [facility] 6 6 [facility] EMERGENCY T VISIT PHYSI MODERATE SEVERITY HOSPITAL [facility] - 6 6 N OUTPATIEN COMMUNTIY T HOSPITA EMERGENCY 64412 KEITH BRAVO 6 6 PHYSICIAN [facility], [facility] T VISIT HIGH/URGE NT SEVERITY HOSPITAL ANA - 6 6 [facility] OUTPATIEN INC T EMERGENCY 93732 ANA 6 6 [facility] DEPARTMEN INC T VISIT MODERATE SEVERITY HOSPITAL ANA - 6 6 [facility] OUTPATIEN INC EMERGENCY 93054 KEITH CROCKETT, 6 6 PHYSICIAN [facility] S, [facility] T VISIT HIGH/URGE NT SEVERITY HOSPITAL ANA - 6 6 [facility] OUTPATIEN INC [facility]OSPITAL ANA - 6 6 [facility] OUTPATIEN INC T OFFICE 98487 [facility] BJORN OUTPATIEN 6 6 PHYSICIAN IVAN T VISIT S GROUP 15 MINUTES OFFICE 89603 [facility] FRYMAN OUTPATIEN 6 6 PHYSICIAN EUG T VISIT S GROUP 25 MINUTES OFFICE 14505 [facility] BJORN OUTPATIEN 6 6 PHYSICIAN IVAN T VISIT S GROUP 25 MINUTES OFFICE 09205 ANA PIERRE OUTPATIEN 6 6 [facility] 25 MINUTES OFFICE 66966 ANA [place] OUTPATIEN 6 6 [facility] T VISIT HOSPITAL 15 MINUTES EMERGENCY 19897 KEITH LUZ 6 6 [facility] T VISIT MODERATE SEVERITY EMERGENCY 35031 ANA 6 6 [facility] DEPARTMEN INC T VISIT LOW/MODER SEVERITY HOSPITAL ANA - 6 6 [facility] OUTPATIEN [facility] T EMERGENCY 70010 KEITH LUZ 5 5 [facility] T VISIT HIGH/URGE NT SEVERITY EMERGENCY 00753 ANA 5 5 [facility] DEPARTMEN INC T VISIT HIGH/URGE NT SEVERITY EMERGENCY 62558 KEITH BRAVO DEPT 5 5 PHYSICIAN [facility] HIGH SEVER[facility]& [facility] HOSPITAL ANA - 5 5 [facility] OUTPATIEN INC T OFFICE 90378 ANA DAWKINS OUTPATIEN 5 5 [facility] T VISIT HOSPITAL 10 MINUTES OFFICE [id number] [facility] CHERISE TOD OUTPATIEN 5 5 PHYSICIAN T VISIT S GROUP 10 MINUTES HOSPITAL ANA - 5 5 [facility] T HOSPITAL ANA - 5 5 [facility] T OFFICE 60920 [facility] CHERISE TOD OUTPATIEN 5 5 PHYSICIAN T VISIT S GROUP 15 MINUTES OFFICE 77641 ANA MARIZA OUTPATIEN 5 5 [facility] T [facility] 15 MINUTES OFFICE 54672 [facility] BJORN OUTPATIEN 5 5 PHYSICIAN IVAN T VISIT S GROUP 15 MINUTES OFFICE 99846 [facility] BJORN OUTPATIEN 5 5 PHYSICIAN IVAN T VISIT S GROUP 10 MINUTES OFFICE 55916 [facility] BJORN OUTPATIEN 5 5 PHYSICIAN IVAN T VISIT S GROUP 15 MINUTES OFFICE 50244 [facility] BJORN OUTPATIEN 5 5 PHYSICIAN IVAN T VISIT S GROUP 15 MINUTES OFFICE 82580 [facility] BJORN OUTPATIEN 5 5 PHYSICIAN IVAN T VISIT S GROUP 10 MINUTES OFFICE 34876 [facility] BJORN OUTPATIEN 5 5 PHYSICIAN IVAN T VISIT S GROUP 25 MINUTES OFFICE 72602 [facility] BJORN OUTPATIEN 4 4 PHYSICIAN IVAN T VISIT S GROUP 10 MINUTES HOSPITAL ANA [facility] 4 4 [facility] OUTPATIEN [facility] ANA - 4 4 [facility] OUTPATIEN INC OFFICE 34507 [facility] BJORN OUTPATIEN 4 4 PHYSICIAN IVAN T VISIT S GROUP 15 MINUTES EMERGENCY 99622 [facility] DEPT 4 4 ROBERT IVAN VISIT EMERGENCY HIGH PHYS SEVERITY& THREAT [email or web address] ANA [facility] 4 4 [facility] OUTPATIEN INC OFFICE 28037 [facility] CHERISE TOD OUTPATIEN 4 4 PHYSICIAN T VISIT S GROUP 15 MINUTES OFFICE 12432 [facility] BJORN OUTPATIEN 4 4 PHYSICIAN IVAN T VISIT S GROUP 10 MINUTES [facility] ANA - 4 4 [facility] OUTPATIEN INC [facility] ANA - 4 4 [facility] OUTPATIEN INC T OFFICE 32740 [facility] CHERISE DIAL OUTPATIEN 4 4 PHYSICIAN T VISIT S GROUP 25 MINUTES HOSPITAL ANA [facility] 4 4 [facility] OUTPATIEN [facility] ANA - 4 4 [facility] OUTPATIEN [facility] ANA [facility] 4 4 [facility] OUTPATIEN [facility] ANA [facility] 4 4 [facility] OUTPATIEN [facility] T OFFICE 77213 [facility] BJORN OUTPATIEN 4 4 PHYSICIAN IVAN T VISIT S GROUP 10 MINUTES HOSPITAL ANA [facility] 4 4 [facility] OUTPATIEN [facility] ANA - 4 4 [facility] OUTPATIEN [facility] ANA - [address] [facility] OUTPATIEN [facility] ANA [facility] 4 4 [facility] OUTPATIEN [facility] ANA [facility] 4 4 [facility] OUTPATIEN [facility] OFFICE 07253 BJORN BJORN CRANEPATIEN 4 4 IVAN IVAN T VISIT 10 MINUTES EMERGENCY 39860 ALFARIS ALFARIS 4 4 [facility] DEPARTMEN T VISIT HIGH/URGE NT SEVERITY OFFICE 88778 [facility] BJORN CRANEPATIEN 4 4 PHYSICIAN IVAN T VISIT S GROUP 15 MINUTES EMERGENCY 80065 SOKAN BAB SOKAN BAB 4 4 DEPARTMEN T VISIT HIGH/URGE NT SEVERITY OFFICE 08609 [facility] BJORN CRANEPATIEN 4 4 PHYSICIAN IVAN T VISIT S GROUP 10 MINUTES EMERGENCY 35077 BJORN BRAVO DEPT 4 4 IVAN IVAN VISIT HIGH SEVERITY& THREAT FUNCJ OFFICE 79206 [facility] BJORN CRANEPATIEN 4 4 PHYSICIAN IVAN T VISIT S GROUP 10 MINUTES OFFICE 52153 [facility] BJORN OUTPATIEN 4 4 PHYSICIAN IVAN T VISIT S GROUP 10 MINUTES OFFICE 00717 [facility] BJORN OUTPATIEN 4 4 PHYSICIAN IVAN T VISIT 5 S GROUP MINUTES OFFICE 91397 [facility] BJORN OUTPATIEN 4 4 PHYSICIAN IVAN T VISIT S GROUP 10 MINUTES HOSPITAL ANA - 4 4 [facility]PATIEN [facility] OFFICE 10563 BJORN BJORN OUTPATIEN 4 4 IVAN IVAN T VISIT 10 MINUTES EMERGENCY 83263 BJORN BJORN 4 4 IVAN IVAN DEPARTMEN T VISIT HIGH/URGE NT SEVERITY OFFICE 44314 [facility] OUTPATIEN 4 4 PHYSICIAN T VISIT S GROUP 15 MINUTES OFFICE 70317 BJORN BJORN OUTPATIEN 4 4 IVAN IVAN T VISIT 10 MINUTES HOSPITAL ANA - 3 3 [facility] OUT[facility]EN [facility] ANA - 3 3 [facility] OUTPATIEN [facility] ANA - 3 3 [facility]PATIEN [facility] ANA - 3 3 [facility] OUTPATIEN [facility] ANA - 3 3 [facility]PATIEN [facility] Emergency BELGICA Bravo MD (ER) 3 20:45 3 21:00 [facility] ANA - 3 3 [facility] OUTPATIEN [facility] ANA - 3 3 [facility] OUTPATIEN [facility] ANA [facility] 3 3 [facility] OUTPATIEN [facility] ANA - 3 3 [facility] OUTPATIEN [facility] ANA - 3 3 [facility] OUTPATIEN [facility] ANA - 3 3 [facility] OUTPATIEN INC T OFFICE 01763 BJORN BJORN OUTPATIEN 3 3 IVAN IVAN T VISIT 10 MINUTES HOSPITAL ANA - 3 3 [facility] OUTPATIEN INC T OFFICE 84981 VLAD CHU OUTPATIEN 3 3 JELENA JELENA T VISIT 10 MINUTES OFFICE 55218 BJORN BRAVO OUTPATIEN 3 3 IVAN IVAN T NEW 30 MINUTES HOSPITAL ANA - 3 3 [facility] OUTPATIEN INC T Emergency BELGICA Plunkett MD (ER) 3 09:07 3 12:31 [facility] EMERGENCY 39346 ADAN ARELLANO 3 3 JOHNATHAN JOHNATHAN DEPARTMEN T VISIT MODERATE SEVERITY Emergency BELGICA Plunkett MD (ER) 3 13:06 3 13:51 [facility] OFFICE 63558 FIELD AMB FIELD AMB OUTPATIEN 3 3 T VISIT 15 MINUTES EMERGENCY 14887 KIARRA DARNELL 3 3 DEPARTMEN T VISIT HIGH/URGE NT SEVERITY OFFICE 38155 [facility] OUTPATIEN 3 3 PHYSICIAN T VISIT S GROUP 15 MINUTES OFFICE 67411 [facility] CONSULTAT 3 3 SALUD SALUD ION NEW/ESTAB PATIENT 40 MIN Emergency BELGICA Bravo MD (ER) 3 00:01 3 00:[address] [facility] EMERGENCY 18886 ANA 3 3 [facility] DEPARTMEN INC T VISIT LOW/MODER SEVERITY HOSPITAL ANA - 3 3 [facility] OUTPATIEN INC T EMERGENCY 79135 BJORN BRAVO 3 3 IVAN IVAN DEPARTMEN T VISIT MODERATE SEVERITY OFFICE 47519 JE Jackman OUTPATIEN 3 3 T VISIT 15 MINUTES OFFICE 15320 SAQIB SAQIB OHARA 3 3 BONY BONY T VISIT 15 MINUTES OFFICE 36604 SAQIB SAQIB OUTTIFFANIEEN 3 3 BONY BONY T VISIT 15 MINUTES Emergency BELGICA Bravo MD (ER) 3 21:18 3 21:[address] [facility] EMERGENCY 42602 BJORN BRAVO 3 3 [facility] DEPARTMEN T VISIT HIGH/URGE NT SEVERITY OFFICE 93391 [facility] OUTPATIEN 3 3 PHYSICIAN T VISIT S GROUP 15 MINUTES Emergency BELGICA Roque (ER) 3 14:52 3 17:36 [facility] EMERGENCY 06065 ANA [address] [facility] DEPARTMEN INC T VISIT HIGH/URGE NT SEVERITY HOSPITAL ANA - 3 3 [facility] OUTPATIEN INC T Emergency BELGICA ARNDT MD (ER) 3 18:13 3 20:03 [facility] EMERGENCY 20364 ANA [address] [facility] DEPARTMEN INC T VISIT LOW/MODER SEVERITY EMERGENCY 24153 SISI ARNDT 3 3 EMERGENCY [facility] SERVICES T VISIT MODERATE SEVERITY HOSPITAL ANA - 3 3 [facility] OUTPATIEN INC T OFFICE 10656 PETTEY PETTEY OUTPATIEN 3 3 JAM JAM T VISIT 15 MINUTES OFFICE 57122 SCHULSTAD SCHULSTAD OUTPATIEN 3 3 JELENA JELENA T VISIT 25 MINUTES HOSPITAL ANA - 3 3 [facility] OUTPATIEN INC T OFFICE 54935 SAQIB OHARA 3 3 BONY BONY T NEW 30 MINUTES HOSPITAL ANA - 2 2 [facility] OUTPATIEN INC T OFFICE 09804 GLORIA GLORIA OUTPATIEN 2 2 IJEOMA RAPHAEL T VISIT 10 MINUTES OFFICE 13488 ADAN ARELLANO OUTPATIEN 2 2 JOHNATHAN MANN T VISIT 15 MINUTES EMERGENCY 71167 BJORN BRAVO 2 2 [facility] DEPARTMEN T VISIT MODERATE SEVERITY HOSPITAL ANA - 2 2 [facility] OUTPATIEN INC T EMERGENCY 48093 SISI MELCHOR 2 2 EMERGENCY SAFIA DEPARTMEN SERVICES T VISIT HIGH/URGE NT SEVERITY OFFICE 53859 JOHNNA OROPEZA OUTPATIEN 2 2 DON DON T NEW 20 MINUTES EMERGENCY 75722 DEYANIRA MCMILLAN 2 2 III AYANA III AYANA DEPARTMEN T VISIT HIGH/URGE NT SEVERITY EMERGENCY 04590 ANA 2 2 [facility] DEPARTMEN INC T VISIT MODERATE SEVERITY HOSPITAL ANA - 2 2 [facility] OUTPATIEN INC T EMERGENCY 93506 ANA 2 2 [facility] DEPARTMEN INC T VISIT LOW/MODER SEVERITY EMERGENCY 40959 SISI BRAVO 2 2 EMERGENCY [facility] DEPARTMEN SERVICES T VISIT HIGH/URGE NT SEVERITY HOSPITAL ANA - 2 2 [facility] OUTPATIEN INC T HOSPITAL ANA - 2 2 [facility] OUTPATIEN INC T OFFICE 28619 VLAD CHU CONSULTAT 2 2 JELENA JELENA ION NEW/ESTAB PATIENT 60 MIN HOSPITAL ANA - 2 2 [facility] OUTPATIEN INC T OFFICE 14664 ALYSSA SHAH OUTPATIEN 2 2 SALUD SALUD T VISIT 25 MINUTES EMERGENCY 68604 SISI BRAVO 2 2 EMERGENCY [facility] DEPARTMEN SERVICES T VISIT HIGH/URGE NT SEVERITY EMERGENCY 86740 ANA 2 2 [facility] DEPARTMEN INC T VISIT LOW/MODER SEVERITY HOSPITAL ANA - 2 2 [facility] OUTPATIEN INC T OFFICE 50973 HOANG GLORIA JUSTIN OUTPATIEN 2 2 T VISIT 15 MINUTES HOSPITAL ANA - 2 2 [facility] OUTPATIEN INC T OFFICE 23822 PETBETTYE RIVERA OUTPATIEN 2 2 JAM JAM T NEW 30 MINUTES OFFICE 93688 HOANG GLORIA JUSTIN OUTPATIEN 2 2 T NEW 30 MINUTES EMERGENCY 02004 HAAKE BRA HAAKE BRA 1 1 DEPARTMEN T VISIT HIGH/URGE NT SEVERITY EMERGENCY 30552 SISI AGUILERA, 0 0 EMERGENCY [place] DEPARTMEN SERVICES T VISIT HIGH/URGE ASSOCIATE NT S [facility] HOSPITAL ANA - 0 0 [facility] OUTPATIEN [facility] T EMERGENCY 72435 ANA 0 0 [facility] LOW/MODER SEVERITY OFFICE 39152 [facility] [place] Gasper T VISIT INTERNAL 25 MED MINUTES HOSPITAL ANA - 0 0 [facility] OUTPATIEN [facility] T EMERGENCY 26698 SISI PLUNKETT, DEPT 0 0 EMERGENCY [facility]AN VISIT SERVICES O HIGH SEVERITY& ASSOCIATE THREAT S [facility] ANA - 0 0 [facility] T EMERGENCY 94982 ANA 0 0 [facility] DEPARTMEN INC T VISIT HIGH/URGE NT SEVERITY HOSPITAL UNIVERSIT - [address] [facility] T OFFICE 18469 [facility] 9 9 MEDARDO Mcnamara T NEW 30 MINUTES HOSPITAL ANA - 9 9 [facility] OUTPATIEN INC T EMERGENCY 04896 ANA 9 9 [facility] DEPARTMEN [facility] T VISIT MODERATE SEVERITY EMERGENCY 55610 SISI GARCIA, DEPT 9 9 EMERGENCY [place] E VISIT SERVICES HIGH SEVERITY& ASSOCIATE THREAT S [facility] [[email or web address] ANA - [address] [facility] OUTPATIEN [facility] T EMERGENCY [address] [facility] T VISIT MODERATE SEVERITY EMERGENCY 81949 SISI PLUNKETT, DEPT 9 9 EMERGENCY BRIAN VISIT SERVICES O HIGH SEVERITY& ASSOCIATE THREAT S [facility] [[email or web address] ANA - [address] [facility] OUTPATIEN [facility] T HOSPITAL ANA - [address] [facility] OFF[facility] 14637 MAYDA MOBLEY 8 8 [place] GLEASON T VISIT INTERNAL 10 MED MINUTES HOSPITAL ANA - [address] [facility] T OFFICE 82892 BLAYNE PRICE 8 8 [facility] VIJAY [facility]TA UROLOGY NEW/ESTAB PSC PATIENT 40 MIN EMERGENCY [address] [facility] T VISIT MODERATE SEVERITY HOSPITAL ANA - [address] [facility] OFF[facility] 53357 MAYDA DOMINGUEZ 8 8 MAINOR Parker T VISIT 25 MINUTES OFFICE 25627 MAYDA HAWKINS 8 8 AKBAR CHAVEZ R T VISIT SERV 15 FOUNDATIO MINUTES HOSPITAL ANA - [address] [facility] OUTPATIEN [facility] T EMERGENCY 81376 [facility]NA 8 8 [facility] T VISIT HIGH/URGE NT SEVERITY OFFICE 56136 MAYDA WOO 8 8 [place] Jackman T VISIT INTERNAL 15 MED MINUTES EMERGENCY 75530 ANA 8 8 [facility]URGE NT [facility]VERITY H[facility] ANA - 8 8 [facility]PATI[facility] ANA - 8 8 [facility]PATIEN [facility] OFFICE 39390 [facility] 8 8 [place] HANCOCK T VISIT INTERNAL MAHOGANY F 15 MED MINUTES [facility] ANA [facility] 8 8 [facility] OUTPATIEN [facility] ANA [facility] 8 8 [facility] OUTPATIEN [facility] ANA - 8 8 [facility] OUTPATIEN [facility] ANA [facility] 8 8 [facility] OUTPATIEN [facility] OFFICE 53588 MAYDA DOMINGUEZ 8 8 MAINOR Cole VISIT 15 MINUTES
--- OUTSIDE RECORDS SUMMARY | 2017-03-02 08:13 | External Medical Summary Rpt | CCD ---
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 ANA PEREZ 4 [facility] STICK/TAB INC INC LET REAGENT AUTO MICROSCOP Y LEVEL III 79494 [facility], RUTH IVAN SURG 4 [facility] PATHOLOGY GROSS&IVAN ROSCOPIC EXAM URINE 55905 ANA PEREZ 4 [facility] TEST INC [place] [address] SREE SREE ABDOMINAL 4 DONIS DONIS REAL TIME W/[place] [address] ANA PEREZ INFUSION 4 [facility] THERAPY/P INC INC ROPHYLAXI S /DX 1ST TO 1 [place] [address] ANA PEREZ INFUSION 4 [facility] THERAPY/P INC INC ROPHYLAXI S /DX 1ST TO 1 HR INJECTION J1335 ANA PEREZ 4 [facility] ERTAPENEM INC INC SODIUM 500 MG INJECTION J1335 ANA PEREZ 4 [facility] ERTAPENEM INC INC SODI[place] [address] [place] [address] ANA PEREZ INFUSION 4 [facility] THERAPY/P INC INC ROPHYLAXI S /DX 1ST TO 1 [place] [address] ANA PEREZ INFUSION 4 [facility] THERAPY/P INC INC ROPHYLAXI S /DX 1ST TO 1 HR INJECTION J1335 ANA PEREZ 4 [facility] ERTAPENEM INC INC SODI[place] [address] ANA PEREZ INFUSION 4 [facility] THER INC INC PROPH ADDL SEQUENTIA L TO 1 HR INJECTION J1335 ANA PEREZ 4 [facility] ERTAPENEM INC [place] SODI[place] 500 [place] [address] ANA PEREZ INFUSION 4 [facility] THERAPY/P INC INC ROPHYLAXI S /DX 1ST TO 1 HR DRUG 23112 ANA PEREZ SCREEN 4 [facility] QUANTITAT INC INC YANETH GENTAMICI N CREATININ 96571 ANA PEREZ E BLOOD 4 [facility] INC INC INJECTION J1335 ANA PEREZ 4 [facility] ERTAPENEM INC INC SODI[place] 500 [place] [address] ANA PEREZ INFUSION 4 [facility] THERAPY/P INC INC ROPHYLAXI S /DX 1ST TO 1 HR INJECTION J1335 ANA PEREZ 4 [facility] ERTAPENEM INC [place] SOD[place] [address] ANA PEREZ INFUSION 4 [facility] THER INC INC PROPH ADDL SEQUENTIA L TO 1 [place] [address] ANA PEREZ INFUSION 4 [facility] THERAPY/P INC INC ROPHYLAXI S /DX 1ST TO 1 HR DRUG 02028 ANA PEREZ SCREEN 4 [facility] QUANTITAT INC INC YANETH GENTAMICI N DRUG 30232 ANA PEREZ SCREEN 4 [facility] QUANTITAT [place] [address] ANA PEREZ INFUSION 4 [facility] THER INC INC PROPH ADDL SEQUENTIA L TO 1 HR INJECTION J1335 ANA PEREZ 4 [facility] ERTAPENEM INC INC SODI[place] [address] [place] [address] ANA PEREZ INFUSION 4 [facility] THERAPY/P INC INC ROPHYLAXI S /DX 1ST TO 1 HR ANESTHESI 08011 [facility] ARCHULETA JACKLYN A VAGINAL 4 ANESTH OF THE PROCEDURE BLUE W/BIOPSY NOS INCISION 01082 CHERISE TOD CHERISE TOD & 4 DRAINAGE ABSCESS COMPLICAT ED/MULTIP LE INITIAL 03305 [facility] BJORN OBSERVATI 4 PHYSICIAN IVAN ON S GROUP CARE/DAY 50 MINUTES INCISION 65001 BJORN MILAN & 4 IVAN IVAN DRAINAGE ABSCESS COMPLICAT ED/MULTIP LE CUL BACT 76087 ANA PEREZ XCPT 4 [facility] URINE INC INC BLOOD/STO OL AEROBIC ISOL CUL BACT 97513 ANA PEREZ AEROBIC 4 [facility] ADDL INC INC METHS DEFINITIV E EA ISOL SUSCEPTIB 99808 ANA PEREZ LTY STDY 4 [facility] ANTIMICRB INC INC IAL MICRO/AGA R DILUTJ INCISION 80506 BJORN MILAN & 4 IVAN IVAN DRAINAGE ABSCESS COMPLICAT ED/MULTIP LE OPHTH 35893 [facility] 4 ANG ANG XM&EVAL COMPRHNSV ESTAB PT 1/> [place] [address] ANA PEREZ INFUSION 3 [facility] THERAPY/P INC INC ROPHYLAXI S /DX 1ST TO 1 HR CREATININ 62873 ANA PEREZ E BLOOD 3 [facility] INC INC DRUG 89850 ANA PEREZ SCREEN 3 [facility] QUANTITAT INC INC YANETH GENTAMICI N DRUG 79980 ANA PEREZ SCREEN 3 [facility] QUANTITAT [place] [address] ANA PEREZ INFUSION 3 [facility] THERAPY/P INC INC ROPHYLAXI S /DX 1ST TO 1 [place] [address] ANA PACHECOON INFUSION 3 [facility] THERAPY INC [place] [address] ANA ANA INFUSION 3 [facility] THERAPY INC [place] [address] ANA ANA INFUSION 3 [facility] THERAPY/P INC INC ROPHYLAXI S /DX 1ST TO 1 [place] [address] ANA ANA INFUSION 3 [facility] THERAPY/P INC INC ROPHYLAXI S /DX 1ST TO 1 HR DRUG 61402 ANA ANA SCREEN 3 [facility] QUANTITAT [place] [address] ANA ANA INFUSION 3 [facility] THERAPY INC [place] [address] ANA ANA INFUSION 3 [facility] THERAPY/P INC INC ROPHYLAXI S /DX 1ST TO 1 [place] [address] ANA ANA INFUSION 3 [facility] THERAPY INC [place] [address] ANA PACHECOON INFUSION 3 [facility] THERAPY/P INC INC ROPHYLAXI S /DX 1ST TO 1 HR DRUG 52023 ANA PACHECOON SCREEN 3 [facility] QUANTITAT [place] [address] ANA ANA INFUSION 3 [facility] THERAPY INC [place] [address] ANA ANA INFUSION 3 [facility] HYDRATION INC INC INITIAL 31 MIN-[place] [address] ANA ANA INFUSION 3 [facility] THERAPY/P INC INC ROPHYLAXI S /DX 1ST TO 1 [place] [address] ANA ANA INFUSION 3 [facility] THERAPY INC [place] [address] ANA PACHECOON INFUSION 3 [facility] THERAPY INC [place] [address] ANA ANA INFUSION 3 [facility] THERAPY/P INC INC ROPHYLAXI S /DX 1ST TO 1 [place] [address] ANA ANA INFUSION 3 [facility] THERAPY/P INC INC ROPHYLAXI S /DX 1ST TO 1 [place] [address] ANA ANA INFUSION 3 [facility] THERAPY INC INC PROPHYLAX IS/DX EA HOUR CREATININ 07861 ANA PEREZ E BLOOD 3 [facility] INC INC CUL BACT 10016 ANA PEREZ AEROBIC 3 [facility] ADDL INC INC METHS DEFINITIV E EA ISOL CUL BACT 70599 ANAWU PEREZ XCPT 3 [facility] URINE INC INC BLOOD/STO OL AEROBIC ISOL SUSCEPTIB 94590 ANA PEREZ LTY STDY 3 [facility] ANTIMICRB INC INC IAL MICRO/AGA R DILUTJ COMPREHEN 50976 ANA PEREZ SIVE 3 [facility] METABOLIC INC INC PANEL BLOOD 48924 ANA PEREZ COUNT 3 [facility] COMPLETE INC INC AUTO&AUTO DIFRNTL WBC HEMOGLOBI 90911 ANA PEREZ N 3 [facility] GLYCOSYLA INC INC CRISTIANO A1C INCISION 21666 VLAD CHU & 3 JELENA JELENA DRAINAGE ABSCESS SIMPLE/SI NGLE THERAPEUT 54964 [facility] IC 3 PHYSICIAN PHYSICIAN PROPHYLAC S GROUP S GROUP TIC/DX INJECTION SUBQ/IM INJECTION J1100 [facility] 3 PHYSICIAN PHYSICIAN DEXAMETHO S GROUP S GROUP SONE SODIUM PHOSPHATE 1 MG URNLS DIP 76652 [facility] 3 PHYSICIAN PHYSICIAN STICK/TAB S GROUP S GROUP LET RGNT NON-AUTO W/O MICRSCP COMPREHEN 75979 ANA PEREZ SIVE 3 [facility] METABOLIC INC INC PANEL CULTURE 22280 ANA PEREZ BCT 3 [facility] ISOL&PRSM INC INC PTV ID ISOLATE EA URINE SUSCEPTIB 53891 ANA PEREZ LTY STDY 3 [facility] ANTIMICRB INC INC [place] [address] ANA PEREZ INFUSION 3 [facility] THERAPY/P INC INC ROPHYLAXI S /DX 1ST TO 1 HR THERAPEUT 72935 ANA PEREZ IC 3 [facility] INJECTION [place] [address] ANA PEREZ INFUSION 3 [facility] THER INC INC PROPH ADDL SEQUENTIA L TO 1 HR INJECTION J2405 ANA PEREZ 3 [facility] ONDANSETR INC INC ON HCL PER 1 MG CULTURE 90388 ANA PEREZ BACTERIAL 3 [facility] INC INC QUANTTAT[place] [address] ANA PEREZ LIPASE 3 [facility] INC INC URNLS DIP 05906 ANA PEREZ 3 [facility] STICK/TAB INC INC LET REAGENT AUTO MICROSCOP Y BLOOD 08700 ANA PEREZ COUNT 3 [facility] COMPLETE INC INC AUTO&AUTO DIFRNTL WBC URINE 99490 ANA PEREZ 3 [facility] TEST INC INC VISUAL COLOR CMPRSN METHS ANES 25275 [facility] INTEG 3 ANESTH EXTREMITI OF THE ES ANT BLUE TRUNK & PERINEUM NOS EXCISION 68[address] HIDRADENI 3 JELENA JELENA TIS INGUINAL SMPL/[place] [address] SISI LAIRD SURG 3 JENNY JENNY PATHOLOGY GROSS&IVAN ROSCOPIC EXAM DETERMINA 18488 SISI LAIRD TION 3 GRE GRE REFRACTIV E STATE OPHTH 12953 [facility] 3 GRE GRE XM&EVAL COMPRE NEW PT 1/> VST GONADOTRO 48496 ANA PEREZ PIN 3 [facility] CHORIONIC INC INC QUALITATI VE BLOOD 29551 ANA PEREZ COUNT 3 [facility] COMPLETE INC INC AUTO&AUTO DIFRNTL WBC IIV3 56674 GL[facility]IA GLORIA VACCINE 2 IJEOMA IJEOMA SPLIT VIRUS 0.5 ML DOSAGE IM USE IM ADM 14235 [facility] GLORIA PRQ ID 2 IJEOMA IJEOMA SUBQ/IM NJXS 1 VACCINE RADEX 23156 SREE SREE FOREARM 2 2 DONIS DONIS VIEWS RADEX 45060 SREE SREE ELBOW 2 DONIS DONIS COMPLETE MINIMUM 3 VIEWS CUL BACT 39707 ANA ANA XCPT 2 [facility] URINE INC INC BLOOD/STO OL AEROBIC ISOL INCISION 97605 ANA PEREZ & 2 [facility] DRAINAGE INC INC ABSCESS SIMPLE/SI NGLE RADEX 56810 [facility] [place] [facility] FOREARM 2 2 RADIOLOGY RHO VIEWS RADEX 53885 [facility] [place] [facility] RIBS UNI 2 RADIOLOGY RHO W/POSTERO ANT CH MINIMUM 3 VIEWS RADEX 97062 [facility] [place] [facility] SPINE 2 RADIOLOGY RHO THORACIC 3 VIEWS TDAP 63356 ANA PEREZ VACCINE 7 2 [facility] YRS/> IM INC INC IM ADM 10542 ANA PEREZ PRQ ID 2 [facility] SUBQ/IM INC INC NJXS 1 VACCINE RADEX 01641 ANA PEREZ ELBOW 2 [facility] COMPLETE INC INC MINIMUM 3 VIEWS RADEX 39672 ANA PEREZ ANKLE 2 [facility] COMPLETE INC INC MINIMUM 3 VIEWS SLINGS A4565 [facility] 2 INCISION 12493 ANA PEREZ & 2 [facility] DRAINAGE INC INC ABSCESS SIMPLE/SI NGLE INCISION 82815 SCHULSTAD SCHULSTAD & 2 JELENA JELENA DRAINAGE ABSCESS COMPLICAT ED/MULTIP LE SUSCEPTIB 99805 ANA PEREZ LTY STDY 2 [facility] ANTIMICRB INC INC IAL MICRO/AGA R DILUTJ CULTURE 49185 ANA PEREZ BACTERIAL 2 [facility] ANY INC INC SOURCE ANAEROBIC ISO&ID CUL BACT 11383 ANA PEREZ AEROBIC 2 [facility] ADDL INC INC METHS DEFINITIV E EA ISOL CUL BACT 94516 ANA CERON XCPT 2 [facility] OMI URINE INC BLOOD/STO OL AEROBIC ISOL ANES 15939 [facility] INTEG 2 ANESTH IJEOMA EXTREMITI OF THE ES ANT BLUE TRUNK & [place] [address] ANA PEREZ INFUSION 2 [facility] THERAPY INC INC PROPHYLAX IS/DX EA HOUR THERAPEUT 46022 ANA PEREZ IC 2 [facility] INJECTION INC INC IV PUSH EACH NEW DRUG LEVEL III 23097 PATHOLOGY YANCEY SURG 2 & BONY PATHOLOGY CYTOLOGY LAB GROSS&[place] [address] ANA PEREZ INFUSION 2 [facility] THERAPY/P INC INC ROPHYLAXI S /DX 1ST TO 1 HR URINE 20801 ANA PEREZ 2 [facility] TEST INC INC VISUAL COLOR CMPRSN METHS BLOOD 48911 ANA PEREZ COUNT 2 [facility] COMPLETE INC INC AUTO&AUTO DIFRNTL WBC BASIC 40734 ANA PEREZ METABOLIC 2 [facility] PANEL INC INC CALCIUM TOTAL CUL BACT 72096 ANA PEREZ XCPT 2 [facility] URINE INC INC BLOOD/STO OL AEROBIC ISOL CUL BACT 83734 ANA PEREZ AEROBIC 2 [facility] ADDL INC INC METHS DEFINITIV E EA ISOL SUSCEPTIB 88242 ANA PEREZ LTY STDY 2 [facility] ANTIMICRB INC INC IAL MICRO/AGA R DILUTJ INCISION 78950 SISI MILAN & 2 EMERGENCY IVAN DRAINAGE SERVICES ABSCESS COMPLICAT ED/MULTIP LE INCISION 50049 ANA PEREZ & 2 [facility] DRAINAGE INC INC ABSCESS SIMPLE/SI NGLE REMOVAL 34184 ALYSSA SHAH INTRAUTER 2 SALUD SALUD INE DEVICE IUD RADEX 98307 ANA PEREZ FOREARM 2 2 [facility] VIEWS INC INC URINE 82834 ALYSSA SHAH 2 SALUD SALUD TEST VISUAL COLOR CMPRSN METHS REMOVAL 26632 ALYSSA SHAH NON-BIODE 2 SALUD SALUD GRADABLE DRUG DELIVERY IMPLANT ETONOGEST J7307 ALYSSA SHAH REL 2 SALUD SALUD CNTRACPT IMPL SYS INCL IMPL & SPL I&D 02969 HAAKE BRA HAAKE BRA VULVA/PER 1 INEAL ABSCESS CUL BACT 88270 ANA PEREZ XCPT 0 [facility] URINE INC INC BLOOD/STO OL AEROBIC ISOL CUL BACT 60000 ANA PEREZ AEROBIC 0 [facility] ADDL INC INC METHS DEFINITIV E EA ISOL SUSCEPTIB 25929 ANA PEREZ LTY STDY 0 [facility] ANTIMICRB INC INC IAL MICRO/AGA R DILUTJ INCISION 84090 SISI AGUILERA & 0 [facility] DRAINAGE SERVICES M ABSCESS SIMPLE/SI ASSOCIATE JUWAN S OTH 8604 ANA PEREZ INCISION 0 [facility] W/DRAINAG INC [place] [address] [facility]OMEN'S [facility], TRANSVAGI 0 HEALTH RUSSEL Lynch [facility] CULTURE 75422 ANA PEREZ BCT 0 [facility] ISOL&PRSM INC INC PTV ID ISOLATE EA URINE URNLS DIP 76948 ANA PEREZ 0 [facility] STICK/TAB INC INC LET REAGENT AUTO MICROSCOP Y SUSCEPTIB 68674 ANA PEREZ LTY STDY 0 [facility] ANTIMICRB INC INC IAL MICRO[place] [address] ANA ANA THYROID 0 [facility] STIMULATI INC INC NG HORMONE TSH CULTURE 34157 ANA PEREZ BACTERIAL 0 [facility] INC INC QUANTTATI VE COLONY COUNT URINE BLOOD 03627 ANA PACHECOON COUNT 0 [facility] COMPLETE INC INC AUTO&AUTO DIFRNTL WBC COMPREHEN 88371 ANAWU PEREZ SIVE 0 [facility] [place] [address] ANA PACHE[place]ON INFUSION 0 [facility] THERAPY/P INC INC ROPHYLAXI S /DX 1ST TO 1 [place] [address] ANA PACHECOON INFUSION 0 [facility] THERAPY INC [place] PROPHYLAX [place] [address] ANA PACHECOON INFUSION 0 [facility] THER INC INC PROPH ADDL SEQUENTIA L TO 1 HR BLOOD 56555 ANA PACHECOON COUNT 0 [facility] COMPLETE INC INC AUTO&AUTO DIFRNTL WBC BASIC 62317 ANA PEREZ METABOLIC 0 [facility] PANEL INC INC CALCIUM TOTAL URINE 03445 ANA PEREZ 0 [facility] TEST INC INC VISUAL COLOR CMPRSN METHS URNLS DIP 90358 ANA ANA 0 [facility] STICK/TAB INC INC LET REAGENT AUTO MICROSCOP Y US PELVIC 52343 [facility]NA [facility] NONOBSTET INC INC BONY REAL-TIME IMAGE COMPLETE RADEX 55906 [place], FOOT 9 MEDICAL HOA N COMPLETE SERV MINIMUM 3 FOUNDATIO VIEWS IADNA 85982 MEDICAL MEDICAL CHLAMYDIA 9 [facility] TRACHOMAT IS AMPLIFIED PROBE TQ IADNA 37950 MED[facility]ICAL NEISSERIA 9 [facility] GONORRHOE AE AMPLIFIED PROBE TQ URNLS DIP 38323 [facility]NA [facility] 9 [facility] STICK/TAB INC INC LET REAGENT AUTO MICROSCOP Y CULTURE 38151 [facility] P[facility] BCT 9 [facility] ISOL&PRSM INC INC PTV ID ISOLATE EA URINE IAADI 74951 ANA [facility] INFLUENZA 9 [facility] B VIRUS INC INC IAADI 00061 ANA P[facility] INFFLUENZ 9 [facility] A A VIRUS INC INC SUSCEPTIB 76341 ANA [facility] LTY STDY 9 [facility] ANTIMICRB INC INC IAL MICRO/AGA R DILUTJ URINE 71228 [facility]NA [facility] 9 [facility] TEST INC INC VISUAL COLOR CMPRSN METHS CULTURE 31991 ANA [facility] BACTERIAL 9 [facility] INC INC QUANTTATI VE COLONY COUNT URINE URINE 65736 ANA [facility] 9 [facility] TEST INC INC VISUAL COLOR CMPRSN METHS URNLS DIP 54756 ANA [facility] 9 [facility] STICK/TAB INC INC LET REAGENT AUTO MICROSCOP Y ANES 61711 [facility], INTEG 9 ANESTH MAHOGANY F EXTREMITI OF THE ES ANT BLUEGRASS TRUNK & PERINEUM NOS LEVEL III 81668 PATHOLOGY PATHOLOGY SURG 9 & & PATHOLOGY CYTOLOGY CYTOLOGY LAB LAB GROSS&IVAN ROSCOPIC EXAM EXCISION 62199 VLAD CHU HIDRADENI 9 , CHANDA , CHANDA TIS INGUINAL SMPL/[place] [address] ANA [facility]Z INFUSION 9 [facility] THERAPY INC INC PROPHYLAX IS/DX EA HOUR EXCISION 29426 ANA [facility] HIDRADENI 9 [facility] TIS [place] [address] ANA PEREZ INFUSION 9 [facility] THERAPY/P INC INC ROPHYLAXI S /DX 1ST TO 1 HR THERAPEUT 20931 ANA PEREZ IC 9 [facility] INJECTION INC INC IV PUSH EACH NEW DRUG OTH LOC 863 ANA PEREZ EXC/DESTR 9 [facility] UC INC INC LES/TISSU E SKN&SUBCU T TISSUE BASIC 27162 ANA ANA METABOLIC 9 [facility] PANEL INC INC CALCIUM TOTAL GONADOTRO 71679 ANA PEREZ PIN 9 [facility] CHORIONIC INC INC QUALITATI VE BLOOD 92151 ANA PEREZ COUNT 9 [facility] COMPLETE INC INC AUTO&AUTO DIFRNTL WBC CUL BACT 17997 COMBINED COMBINED XCPT 8 PHYSICIAN PHYSICIAN URINE S LAB S LAB BLOOD/[place] [address] [place], ABDOMEN 8 MEDICAL PRAT[facility] W/O IMAGING CONTRAST ASSOCIATE MATERIAL S 3D 68446 [place], RENDERING 8 MEDICAL [place] IMAGING W/INTERP& ASSOCIATE POSTPROC S DIFF WORK STATION CT PELVIS 68211 [place], W/O 8 MEDICAL [place]AT[place] CONTRAST IMAGING MATERIAL ASSOCIATE S BLOOD 02352 ANA [facility]Z COUNT 8 [facility] COMPLETE INC INC AUTO&AUTO DIFRNTL WBC BASIC 76706 ANA PEREZ METABOLIC 8 [facility] PANEL INC INC CALCIUM TOTAL URINE 69974 ANA PEREZ 8 [facility] TEST INC INC VISUAL COLOR CMPRSN METHS URNLS DIP 28935 ANA PEREZ 8 [facility] STICK/TAB INC INC LET REAGENT AUTO MICROSCOP Y URINALYSI 83398 Makenzie DOMINGUEZ 8 MAINOR LUEVANO IC ONLY URNLS DIP 38534 ANA [facility]Z 8 [facility] STICK/TAB INC INC LET REAGENT AUTO MICROSCOP Y IMMUNOASS 77029 ANA PEREZ AY NFCT 8 [facility] AGT ANTB INC INC QUAL/SEMI AMADEO 1 STEP IAADI 08338 ANAWU PEREZ INFFLUENZ 8 [facility] A A VIRUS INC INC IAADI 06561 ANA PEREZ INFLUENZA 8 [facility] B VIRUS INC INC COMPREHEN 46104 ANA PEREZ SIVE 8 [facility] METABOLIC INC INC PANEL URINE 66495 ANA [facility]EREZ 8 [facility] TEST INC INC VISUAL COLOR CMPRSN METHS BLOOD 30204 ANA ANA COUNT 8 [facility] COMPLETE INC INC AUTO&AUTO DIFRNTL WBC CULTURE 18001 ANA P[facility] BACTERIAL 8 [facility] [facility] INC INC [place]TTATI [place] 57437 ANA [facility]Z THER 8 [facility] PROPH/DX INC INC 1ST >1 HR IV NFUS 22286 ANA [facility] THER 8 [facility]/[place] [address] ANA [facility] STREPTOCO 8 [facility] [place] [address] ANA PEREZ HPYLORI 8 [place] [address] PATHOLOGY PATHOLOGY SURG 8 & & PATHOLOGY CYTOLOGY CYTOLOGY LAB LAB GROSS&[place] NFUS 85194 ANA PEREZ THER 8 [facility] PROPH/DX [place] NFS 03569 ANA [facility]Z THER 8 [facility] PROPH/DX INC INC 1ST >1 HR CUL BACT 59961 ANA [facility] XCPT 8 [facility] URINE INC INC BLOOD/STO OL AEROBIC ISOL BLOOD 03328 ANA [facility] COUNT 8 [facility] COMPLETE INC INC AUTO&AUTO DIFRNTL WBC BASIC 38171 ANA [facility] METABOLIC 8 [facility] PANEL INC INC CALCIUM TOTAL SPCL STN 15841 PATHOLOGY PATHOLOGY 2 I&R 8 & & EXCPT CYTOLOGY CYTOLOGY MICROORG/ LAB LAB ENZYME/IM CYT SUSCEPTIB 00573 ANA [facility] LTY STDY 8 [facility] ANTIMICRB INC INC IAL MICRO/AGA R DILUTJ EGD 28884 [place] ARTIS, TRANSORAL 8 MEDICAL DIANE BIOPSY SERV SINGLE/MU FOUNDATIO LTIPLE ESOPHAGOG 4516 ANA [facility] ASTRODUOD 8 [facility] ENOSCOPY INC INC WITH CLOSED BIOPSY OTH 8604 ANA PEREZ INCISION 8 [facility] W/DRAINAG INC INC E SKIN&SUBC UTANEOUS TISSUE RADEX 17804 MARIALUISA SREE, HUMERUS 8 MEDICAL PRATIBHA MINIMUM 2 IMAGING VIEWS ASSOCIATE S RADEX 10550 ANA PEREZ FOREARM 2 8 [facility] VIEWS INC INC RADEX 88190 [place] SREE, WRIST 8 MEDICAL PRATIBHA COMPLETE IMAGING MINIMUM 3 ASSOCIATE VIEWS S RADEX 12463 [facility] S[facility], HAND 8 MEDICAL PRATIBHA MINIMUM 3 IMAGING VIEWS ASSOCIATE S RADEX 81150 ANA PEREZ ELBOW 8 [facility] COMPLETE INC INC MINIMUM 3 VIEWS RADEX 93919 [facility] SREE, SMALL 8 MEDICAL PRATIBHA INTESTINE IMAGING ASSOCIATE W/[place] [address] ANA [facility]EREZ CLOSTRIDI 8 [facility] [place] [address] ANA PEREZ GIARDIA 8 [facility] INC INC CUL BACT 32921 ANA PEREZ STOOL 8 [facility] AEROBIC INC INC ISOL SALMONELL A&SHIGELL OVA&CHEO 63402 ANA PEREZ ITES 8 [facility] DIRECT INC INC SMEARS CONCENTRA T[place] & [place] [address] ANA PEREZ THYROID 8 [facility] STIMULATI INC INC NG HORMONE TSH IIV3 91325 DHS/CO ANA VACCINE 8 [facility] VIRUS 0.5 BANK ACCT ML DOSAGE IM USE 94891 DODIE BOSE 8 MEDICAL RAQUEL P NAL IMAGING ASSOCIATE S Encounters Encounter Start End Date Code Location Performer Type Date HOSPITAL ANA - 7 7 [facility] OUTPATIEN INC T OFFICE 08532 [facility] HDZ OUTPATIEN 7 7 PHYSICIAN T NEW 30 S GROUP MINUTES EMERGENCY 18685 [facility] DE[facility] 7 7 EMERGENCY VISIT HIGH PHYSICIAN SEVERITY& S THREAT [facility] ANA - 7 7 [facility] OUTPATIEN INC T OFFICE 41192 ANA OUTPATIEN 7 7 [facility] T VISIT 5 INC MINUTES OFFICE 58127 ANA OUTPATIEN 7 7 [facility] T VISIT 5 INC [facility] ANA - 7 7 [facility]EN [facility] ANA - 7 7 [facility] ANA - 7 7 [facility]EN [facility] ANA - 7 7 [facility] OUTPATIEN [facility] T EMERGENCY 04899 EMERGENCY [facility] DEPT 7 7 MEDICINE VISIT HIGH PHYSICIAN SEVERITY& THREAT [facility] WILLY - 7 7 [facility] - 7 7 [facility] OUT[facility]EN [facility] T OFFICE 70457 [facility] JUAN OUTPATIEN 7 7 PHYSICIAN T VISIT S GROUP 25 MINUTES OFFICE 46159 [facility] BJORN OUTPATIEN 6 6 PHYSICIAN T VISIT S GROUP 25 MINUTES EMERGENCY 66745 [place] 6 6 N DEPARTMEN COMMUNTIY T VISIT HOSPITA MODERATE SEVERITY HOSPITAL [facility] - 6 6 N OUTPATIEN COMMUNTIY T HOSPITA EMERGENCY 83220 ANA 6 6 [facility] DEPARTMEN INC T VISIT MODERATE SEVERITY HOSPITAL ANA - 6 6 [facility] OUTPATIEN INC T EMERGENCY 54682 KEITH MIALN 6 6 PHYSICIAN IVAN DEPARTMEN S, [facility] T VISIT HIGH/URGE NT SEVERITY HOSPITAL ANA - 6 6 [facility] OUTPATIEN INC T EMERGENCY 42828 ANA 6 6 [facility] DEPARTMEN INC T VISIT HIGH/URGE NT SEVERITY HOSPITAL ANA - 6 6 [facility] IVAN T VISIT S GROUP 15 MINUTES HOSPITAL ANA - 6 6 [facility] OUTPATIEN INC T OFFICE 68916 [facility] FRYMAN OUTPATIEN 6 6 PHYSICIAN EUG T VISIT S GROUP 25 MINUTES OFFICE 80779 [facility] OUTPATIEN 6 6 PHYSICIAN IVAN T VISIT S GROUP 25 MINUTES OFFICE 14357 ANA PIERRE OUTPATIEN 6 6 [facility] VISIT HOSPITAL 25 MINUTES OFFICE 58219 ANA STARR OUTPATIEN 6 6 [facility] T VISIT HOSPITAL 15 MINUTES EMERGENCY 48990 KEITH LUZ 6 6 PHYSICIAN U [facility] S, [facility] T VISIT MODERATE SEVERITY HOSPITAL ANA - 6 6 [facility] OUTPATIEN [facility] T EMERGENCY 31848 ANA 6 6 [facility] DEPARTMEN INC T VISIT LOW/MODER SEVERITY EMERGENCY 72847 KEITH LUZ 5 5 PHYSICIAN U LAURE [facility] S, [facility] T VISIT HIGH/URGE NT SEVERITY EMERGENCY 27569 ANA 5 5 [facility] DEPARTMEN INC T VISIT HIGH/URGE NT SEVERITY HOSPITAL ANA - 5 5 [facility] OUTPATIEN [facility] T EMERGENCY 99478 KEITH MILAN DEPT 5 5 PHYSICIAN IVAN VISIT S, [facility] HIGH SEVERITY& THREAT FUNCJ OFFICE 96401 ANA FRYMAN OUTPATIEN 5 5 [facility] 10 MINUTES OFFICE 10295 [facility] CHERISE TOD OUTPATIEN 5 5 PHYSICIAN T VISIT S GROUP 10 MINUTES HOSPITAL ANA - 5 5 [facility] OUTPATIEN INC HOSPITAL ANA - 5 5 [facility] OUTPATIEN INC T OFFICE 27348 [facility] CHERISE TOD OUTPATIEN 5 5 PHYSICIAN T VISIT S GROUP 15 MINUTES OFFICE 46496 ANA FRYMAN OUTPATIEN 5 5 [facility] 15 MINUTES OFFICE 65290 [facility] BJORN OUTPATIEN 5 5 PHYSICIAN IVAN T VISIT S GROUP 15 MINUTES OFFICE 34904 [facility] BJORN OUTPATIEN 5 5 PHYSICIAN IVAN T VISIT S GROUP 10 MINUTES OFFICE 46654 [facility] BJORN OUTPATIEN 5 5 PHYSICIAN IVAN T VISIT S GROUP 15 MINUTES OFFICE 76985 [facility] BJORN OUTPATIEN 5 5 PHYSICIAN IVAN T VISIT S GROUP 15 MINUTES OFFICE 86494 [facility] BJORN OUTPATIEN 5 5 PHYSICIAN IVAN T VISIT S GROUP 10 MINUTES OFFICE 65498 [facility] BJORN OUTPATIEN 5 5 PHYSICIAN IVAN T VISIT S GROUP 25 MINUTES HOSPITAL ANA - 4 4 [facility] OUTPATIEN INC OFFICE 66487 [facility] BJORN OUTPATIEN 4 4 PHYSICIAN IVAN T VISIT S GROUP 10 MINUTES HOSPITAL ANA - 4 4 [facility] OUTPATIEN INC OFFICE 13100 [facility] BJORN OUTPATIEN 4 4 PHYSICIAN IVAN T VISIT S GROUP 15 MINUTES EMERGENCY 15568 [facility] DEPT 4 4 ROBERT IVAN VISIT EMERGENCY HIGH PHYS SEVERITY& [facility] OUT[facility] INC T OFFICE 52946 [facility] CHERISE DIAL OUTPATIEN 4 4 PHYSICIAN T VISIT S GROUP 15 MINUTES OFFICE 26414 [facility] BJORN OUTPATIEN 4 4 PHYSICIAN IVAN T VISIT S GROUP 10 MINUTES HOSPITAL ANA - 4 4 [facility] OUTPATIEN [facility] T OFFICE 19444 [facility] CHERISE DIAL OUTPATIEN 4 4 PHYSICIAN T VISIT S GROUP 25 MINUTES HOSPITAL ANA - 4 4 [facility] OUTPATIEN [facility] ANA - 4 4 [facility] OUTPAT[facility]EN [facility] ANA - 4 4 [facility] OUTPATIEN [facility] ANA [facility] 4 4 [facility] OUTPATIEN [facility] ANA [facility] 4 4 [facility] OUTPATIEN [facility] T OFFICE 34473 [facility] BJORN OUTPATIEN 4 4 PHYSICIAN IVAN T VISIT S GROUP 10 MINUTES HOSPITAL ANA - 4 4 [facility]PAT[facility]EN [facility] ANA - 4 4 [facility] OUTPATIEN [facility] ANA - 4 4 [facility]PATIEN [facility] ANA [facility] 4 4 [facility]EN [facility] ANA - 4 4 [facility] OUTPATIEN INC T OFFICE 76984 BJORN BJORN OUTPATIEN 4 4 IVAN IVAN T VISIT 10 MINUTES EMERGENCY 85939 ALFARIS ALFARIS 4 4 [facility] T VISIT HIGH/URGE NT SEVERITY OFFICE 33206 [facility] BJORN OUTPATIEN 4 4 PHYSICIAN IVAN T VISIT S GROUP 15 MINUTES EMERGENCY 55564 SOKAN BAB SOKAN BAB 4 4 DEPARTMEN T VISIT HIGH/URGE NT SEVERITY OFFICE 92982 [facility] BJORN OUTPATIEN 4 4 PHYSICIAN IVAN T VISIT S GROUP 10 MINUTES EMERGENCY 05407 BJORN BJORN DEPT 4 4 IVAN IVAN VISIT HIGH SEVERITY& THREAT FUNCJ OFFICE 96449 [facility] BJORN OUTPATIEN 4 4 PHYSICIAN IVAN T VISIT S GROUP 10 MINUTES OFFICE 00123 [facility] BJORN OUTPATIEN 4 4 PHYSICIAN IVAN T VISIT S GROUP 10 MINUTES OFFICE 56528 [facility] BJORN OUTPATIEN 4 4 PHYSICIAN IVAN T VISIT 5 S GROUP MINUTES HOSPITAL ANA - 4 4 [facility]IEN [facility] OFFICE 87372 [facility] BJORN OUTPATIEN 4 4 PHYSICIAN IVAN T VISIT S GROUP 10 MINUTES OFFICE 98656 BJORN BJORN OUTPATIEN 4 4 IVAN IVAN T VISIT 10 MINUTES EMERGENCY 60720 BJORN BJORN 4 4 IVAN IVAN DEPARTMEN T VISIT HIGH/URGE NT SEVERITY OFFICE 64087 [facility] OUTPATIEN 4 4 PHYSICIAN T VISIT S GROUP 15 MINUTES OFFICE 36399 BJORN BJORN OUTPATIEN 4 4 IVAN IVAN T VISIT 10 MINUTES HOSPITAL ANA - 3 3 [facility] OUTPAT[facility]EN [facility] ANA - 3 3 [facility] ANA - 3 3 [facility]PATIEN [facility] ANA - 3 3 [facility] ANA - 3 3 [facility] ANA - 3 3 [facility] OUTPATIEN [facility] ANA - 3 3 [facility] OUTPATIEN INC HOSPITAL ANA [facility] 3 3 [facility] OUTPATIEN INC HOSPITAL ANA [facility] 3 3 [facility] OUTPATIEN INC [facility] ANA - 3 3 [facility] OUTPATIEN [facility] ANA [facility] 3 3 [facility] OUTPATIEN [facility] OFFICE 00722 BJORN MILAN OUTPATIEN 3 3 IVAN IVAN T VISIT 10 MINUTES HOSPITAL ANA - 3 3 [facility] OUTPATIEN INC OFFICE 98968 VLAD CHU OUTPATIEN 3 3 JELENA JELENA T VISIT 10 MINUTES OFFICE 56127 BJORN MILAN OUTPATIEN 3 3 IVAN IVAN T NEW 30 MINUTES HOSPITAL ANA - 3 3 [facility] OUTPATIEN INC EMERGENCY 17729 ARELLANO ARELLANO 3 3 JOHNATHAN JOHNATHAN DEPARTMEN T VISIT MODERATE SEVERITY EMERGENCY 86404 SOKAN BAB SOKAN BAB 3 3 DEPARTMEN T VISIT HIGH/URGE NT SEVERITY OFFICE 32144 FIELD AMB FIELD AMB OUTPATIEN 3 3 T VISIT 15 MINUTES OFFICE 79891 [facility] OUTPATIEN 3 3 PHYSICIAN T VISIT S GROUP 15 MINUTES OFFICE 45534 [facility] CONSULTAT 3 3 SALUD SALUD ION NEW/ESTAB PATIENT 40 MIN EMERGENCY 19403 ANA 3 3 [facility] DEPARTMEN INC T VISIT LOW/MODER SEVERITY HOSPITAL ANA - 3 3 [facility] OUTPATIEN INC T EMERGENCY 12677 BJORN MILAN 3 3 IVAN IVAN DEPARTMEN T VISIT MODERATE SEVERITY OFFICE 77917 JE Jackman OUTPATIEN 3 3 T VISIT 15 MINUTES OFFICE 38861 SAQIB CERRATO OUTPATIEN 3 3 BONY BONY T VISIT 15 MINUTES OFFICE 79889 SAQIB CERRATO OUTPATIEN 3 3 BONY BONY T VISIT 15 MINUTES EMERGENCY 03627 BJORN MILAN 3 3 [facility] DEPARTMEN T VISIT HIGH/URGE NT SEVERITY OFFICE 05711 [facility] OUTPATIEN 3 3 PHYSICIAN T VISIT S GROUP 15 MINUTES HOSPITAL ANA - 3 3 [facility] OUTPATIEN INC T EMERGENCY 54957 ANA 3 3 [facility] DEPARTMEN INC T VISIT HIGH/URGE NT SEVERITY EMERGENCY 63772 ANA 3 3 [facility] DEPARTMEN INC T VISIT LOW/MODER SEVERITY HOSPITAL ANA - 3 3 [facility] OUTPATIEN INC T EMERGENCY 79107 SISI ARNDT 3 3 EMERGENCY [facility] T VISIT MODERATE SEVERITY OFFICE 08216 ALYSSA SHAH OUTPATIEN 3 3 SALUD SALUD T VISIT 25 MINUTES OFFICE 45205 SAQIB CERRATO OUTPATIEN 3 3 BONY BONY T NEW 30 MINUTES HOSPITAL ANA - 3 3 [facility] OUTPATIEN INC T OFFICE 54949 PETTEY PETTEY OUTPATIEN 3 3 JAM JAM T VISIT 15 MINUTES OFFICE 26382 GLORIA GLORIA OUTPATIEN 2 2 IJEOMA IJEOMA T VISIT 10 MINUTES HOSPITAL ANA - 2 2 [facility] OUTPATIEN INC T OFFICE 91591 ARELLANO ARELLANO OUTPATIEN 2 2 JOHNATHAN JOHNATHAN T VISIT 15 MINUTES EMERGENCY 86563 ANA 2 2 [facility] DEPARTMEN INC T VISIT MODERATE SEVERITY HOSPITAL ANA - 2 2 [facility] OUTPATIEN INC T EMERGENCY 93942 SISI MELCHOR 2 2 EMERGENCY SAFIA DEPARTMEN SERVICES T VISIT HIGH/URGE NT SEVERITY OFFICE 88369 JOHNNA OROPEZA OUTPATIEN 2 2 DON DON T NEW 20 MINUTES HOSPITAL ANA - 2 2 [facility] OUTPATI[facility] INC T EMERGENCY 86962 DEYANIRA GOULDKEO 2 2 III AYANA III AYANA DEPARTMEN T VISIT HIGH/URGE NT SEVERITY EMERGENCY 43495 [facility] 2 [facility] MODERATE SEVERITY EMERGENCY 05226 ANA 2 [address] [facility] T VISIT LOW/MODER SEVERITY HOSPITAL ANA - 2 2 [facility] T EMERGENCY 00976 SISI MILAN 2 2 EMERGENCY [facility] DEPARTMEN SERVICES T VISIT HIGH/URGE NT SEVERITY HOSPITAL ANA - 2 2 [facility] OUTPATIEN [facility] ANA - 2 2 [facility] OUTPATIEN [facility] T OFFICE 36487 VLAD CHU CONSULTAT 2 2 JELNEA JELENA ION NEW/ESTAB PATIENT 60 MIN OFFICE 86577 ALYSSA SHAH OUTPATIEN 2 2 SALUD SALUD T VISIT 25 MINUTES HOSPITAL ANA - 2 2 [facility] OUTPATI[facility] INC T EMERGENCY 27156 SISI MILAN 2 2 EMERGENCY [facility] DEPARTMEN SERVICES T VISIT HIGH/URGE NT SEVERITY EMERGENCY 90445 ANA 2 2 [facility] LOW/MODER SEVERITY OFFICE 06432 HOANG GRIMALDOES JUSTIN OUTPATIEN 2 2 T VISIT 15 MINUTES HOSPITAL ANA - 2 2 [facility] OUTPATIEN INC T OFFICE 78265 PETTEY PETTEY OUTPATIEN 2 2 JAM JAM T NEW 30 MINUTES OFFICE 63650 HOANG GLORIA JUSTIN OUTPATIEN 2 2 T NEW 30 MINUTES EMERGENCY 29621 JIM FERNANDEZ BRA 1 1 DEPARTMEN T VISIT HIGH/URGE NT SEVERITY EMERGENCY 75000 SISI AGUILERA, 0 0 [facility] DEPARTMEN SERVICES M T VISIT HIGH/URGE ASSOCIATE NT S SEVERITY EMERGENCY 59282 ANA 0 0 [facility] DEPARTMEN INC T VISIT LOW/MODER SEVERITY HOSPITAL ANA - 0 0 [facility]EN [facility] ANA [facility] 0 0 [facility] T OFFICE 17825 SAYDA THOMAS, [facility] 0 0 [place] Jackman T VISIT INTERNAL 25 MED MINUTES HOSPITAL ANA - 0 0 [facility] T EMERGENCY 93152 ANA 0 0 [facility] T VISIT HIGH/URGE NT SEVERITY EMERGENCY 04579 SISI PLUNKETT, KAYYT 0 0 EMERGENCY BRIAN VISIT SERVICES O HIGH SEVERITY& ASSOCIATE THREAT S [facility] - [address] [facility] T OFFICE 56333 RIZWANA WAGONER [facility] 9 9 MEDARDO Mcnamara T NEW 30 MINUTES HOSPITAL ANA - 9 9 [facility] T EMERGENCY 28957 SISI MILAN 9 9 EMERGENCY FRANC S DEPARTMEN SERVICES T VISIT MODERATE ASSOCIATE SEVERITY S EMERGENCY 39903 SISI GARCIA DEPT 9 9 EMERGENCY RONDAL E VISIT SERVICES HIGH SEVERITY& ASSOCIATE THREAT S [facility] 25624 ANA 9 9 [facility] DEPARTMEN INC T VISIT MODERATE SEVERITY EMERGENCY 10689 SISI SOKAN, DEPT 9 9 EMERGENCY BRIAN VISIT SERVICES O HIGH SEVERITY& ASSOCIATE THREAT S [facility] AAN - 9 9 [facility] OUTPATIEN [facility] ANA [facility] 9 9 [facility] OUT[facility] ANA [facility] 9 9 [facility] OUTPATIEN [facility] T OFFICE 76540 MAYDA MOBLEY 8 8 [place] GLEASON T VISIT INTERNAL 10 MED MINUTES OFFICE 14[address] [facility] VIJAY ORTA UROLOGY NEW/ESTAB PSC PATIENT 40 MIN HOSPITAL ANA - 8 8 [facility] OUTPATIEN [facility] ANA [facility] 8 8 [facility] OUTPATIEN [facility] EMERGENCY 21703 ANA 8 8 [facility] DEPARTMEN [facility] T VISIT MODERATE SEVERITY OFFICE 89212 MAYDA DOMINGUEZ 8 8 MAINOR Parker T VISIT 25 MINUTES OFFICE 94964 MAYDA HAWKINS 8 8 AKBAR Parker T VISIT SERV 15 FOUNDATIO MINUTES EMERGENCY 24395 ANA 8 8 [facility] DEPARTMEN [facility] T VISIT HIGH/URGE NT SEVERITY HOSPITAL ANA - 8 8 [facility] OUTPATIEN [facility] T OFFICE 65560 SAYDA THOMAS OUTPATIALY 8 8 [place] Cole VISIT INTERNAL 15 MED MINUTES HOSPITAL ANA - 8 8 [facility] OUTPATIEN [facility] T EMERGENCY 26273 ANA 8 8 [facility] DEPARTMEN [facility] T VISIT HIGH/URGE NT SEVERITY HOSPITAL ANA - 8 8 [facility] OUTPATIEN [facility] T OFFICE 14595 [facility] [place] T VISIT INTERNAL MAHOGANY F 15 MED MINUTES HOSPITAL ANA - 8 8 [facility] OUTPATIEN [facility] ANA - 8 8 [facility] OUTPAT[facility]EN [facility] ANA - 8 8 [facility] OUTPATIEN [facility] ANA [facility] 8 8 [facility] OUTPATIEN [facility] OFFICE 23810 MAYDA DOMINGUEZ 8 8 MAINOR Cole VISIT 15 MINUTES
--- OUTSIDE RECORDS SUMMARY | 2017-03-02 08:13 | External Medical Summary Rpt | CCD ---
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 [facility] THERAPY/P INC INC ROPHYLAXI S /DX 1ST TO [place] [address] ANA ANA INFUSION 3 [facility] THERAPY INC INC PROPHYLAX IS/DX EA HOUR CREATININ 96385 ANA PEREZ E BLOOD 3 [facility] INC INC CUL BACT 94120 ANA PEREZ AEROBIC 3 [facility] ADDL INC INC METHS DEFINITIV E EA ISOL CUL BACT 40392 ANAWU PEREZ XCPT 3 [facility] URINE INC INC BLOOD/STO OL AEROBIC ISOL SUSCEPTIB 78177 ANA PEREZ LTY STDY 3 [facility] ANTIMICRB INC INC IAL MICRO/AGA R DILUTJ COMPREHEN 65668 ANA PEREZ SIVE 3 [facility] METABOLIC INC INC PANEL BLOOD 53805 ANA PEREZ COUNT 3 [facility] COMPLETE INC INC AUTO&AUTO DIFRNTL WBC HEMOGLOBI 69856 ANA PEREZ N 3 [facility] GLYCOSYLA INC INC CRISTIANO A1C INCISION 13206 VLAD CHU & 3 JELENA JELENA DRAINAGE ABSCESS SIMPLE/SI NGLE THERAPEUT 20417 [facility] IC 3 PHYSICIAN PHYSICIAN PROPHYLAC S GROUP S GROUP TIC/DX INJECTION SUBQ/IM INJECTION J1100 [facility] 3 PHYSICIAN PHYSICIAN DEXAMETHO S GROUP S GROUP SONE SODIUM PHOSPHATE 1 MG URNLS DIP 72064 [facility] 3 PHYSICIAN PHYSICIAN STICK/TAB S GROUP S GROUP LET RGNT NON-AUTO W/O MICRSCP COMPREHEN 63886 ANA PEREZ SIVE 3 [facility] METABOLIC INC INC PANEL CULTURE 26247 ANA PEREZ BCT 3 [facility] ISOL&PRSM INC INC PTV ID ISOLATE EA URINE SUSCEPTIB 23672 ANA PEREZ LTY STDY 3 [facility] ANTIMICRB INC [place] [address] ANA PEREZ INFUSION 3 [facility] THERAPY/P INC INC ROPHYLAXI S /DX 1ST TO 1 HR THERAPEUT 56995 ANA PEREZ IC 3 [facility] INJECTION [place] [address] ANA PEREZ INFUSION 3 [facility] THER INC INC PROPH ADDL SEQUENTIA L TO 1 HR INJECTION J2405 ANA PEREZ 3 [facility] ONDANSETR INC INC ON HCL PER 1 MG CULTURE 75065 ANA PEREZ BACTERIAL 3 [facility] INC INC [place]TTAT[place] [address] ANA PEREZ LIPASE 3 [facility] INC INC URNLS DIP 83892 ANA PEREZ 3 [facility] STICK/TAB INC INC LET REAGENT AUTO MICROSCOP Y BLOOD 09678 ANA PEREZ COUNT 3 [facility] COMPLETE INC INC AUTO&AUTO DIFRNTL WBC URINE 93903 ANA P[facility]Z 3 [facility] TEST INC INC VISUAL COLOR CMPRSN METHS ANES 96335 [facility] IN[facility] 3 ANESTH EXTREMITI OF THE ES ANT BLUE TRUNK & PERINEUM NOS EXCISION [address] HIDRADENI 3 JELENA JELENA TIS INGUINAL SMPL/[place] [address] SISI LAIRD SURG 3 JENNY JENNY PATHOLOGY GROSS&IVAN ROSCOPIC EXAM DETERMINA 20364 SISI LAIRD TION 3 GRE GRE REFRACTIV E STATE OPHTH 54979 [facility] [place] 3 GRE GRE XM&EVAL COMPRE NEW PT 1/> VST GONADOTRO 16229 ANA PEREZ PIN 3 [facility] CHORIONIC INC INC QUALITATI VE BLOOD 84120 ANA PEREZ COUNT 3 [facility] COMPLETE INC INC AUTO&AUTO DIFRNTL WBC IIV3 01471 GLORIA GLORIA VACCINE 2 IJEOMA IJEOMA SPLIT VIRUS 0.5 ML DOSAGE IM USE IM ADM 76055 GLORIA GLORIA PRQ ID 2 IJEOMA IJEOMA SUBQ/IM NJXS 1 VACCINE RADEX 56356 SREE SREE FOREARM 2 2 DONIS DONIS VIEWS RADEX 66897 SREE SREE ELBOW 2 DONIS DONIS COMPLETE MINIMUM 3 VIEWS CUL BACT 88827 ANA ANA XCPT 2 [facility] URINE INC INC BLOOD/STO OL AEROBIC ISOL INCISION 70677 ANA PEREZ & 2 [facility] DRAINAGE INC INC ABSCESS SIMPLE/SI NGLE RADEX 15777 [facility] [place] [facility] FOREARM 2 2 RADIOLOGY RHO VIEWS RADEX 48310 [facility] [place] [facility] RIBS UNI 2 RADIOLOGY RHO W/POSTERO ANT CH MINIMUM 3 VIEWS RADEX 94083 [facility] [place] [facility] SPINE 2 RADIOLOGY RHO THORACIC 3 VIEWS TDAP 78780 ANA PEREZ VACCINE 7 2 [facility] YRS/> IM INC INC IM ADM 87926 ANA PEREZ PRQ ID 2 [facility] SUBQ/IM INC INC NJXS 1 VACCINE RADEX 08464 ANA PEREZ ELBOW 2 [facility] COMPLETE INC INC MINIMUM 3 VIEWS RADEX 72136 ANA PEREZ ANKLE 2 [facility] COMPLETE INC INC MINIMUM 3 VIEWS SLINGS A4565 [facility] INCISION 41402 ANA PEREZ & 2 [facility] DRAINAGE INC INC ABSCESS SIMPLE/SI NGLE INCISION 59819 [facility] & 2 JELENA JELENA DRAINAGE ABSCESS COMPLICAT ED/MULTIP LE SUSCEPTIB 85614 ANA PEREZ LTY STDY 2 [facility] ANTIMICRB INC INC IAL MICRO/AGA R DILUTJ CULTURE 34770 ANA PEREZ BACTERIAL 2 [facility] ANY INC INC SOURCE ANAEROBIC ISO&ID CUL BACT 90260 ANA PEREZ AEROBIC 2 [facility] ADDL INC INC METHS DEFINITIV E EA ISOL CUL BACT 31318 ANA CERON XCPT 2 [facility] OMI URINE INC BLOOD/STO OL AEROBIC ISOL ANES 45939 [facility] INTEG 2 ANESTH IJEOMA EXTREMITI OF THE ES ANT BLUE TRUNK & [place] [address] ANA PEREZ INFUSION 2 [facility] THERAPY INC INC PROPHYLAX IS/DX EA HOUR THERAPEUT 50014 ANA PEREZ IC 2 [facility] INJECTION INC INC IV PUSH EACH NEW DRUG LEVEL III 84636 PATHOLOGY YANCEY SURG 2 & BONY PATHOLOGY CYTOLOGY LAB GROSS&[place] [address] ANA PEREZ INFUSION 2 [facility] THERAPY/P INC INC ROPHYLAXI S /DX 1ST TO 1 HR URINE 91559 ANA PEREZ 2 [facility] TEST INC INC VISUAL COLOR CMPRSN METHS BLOOD 03526 ANA PEREZ COUNT 2 [facility] COMPLETE INC INC AUTO&AUTO DIFRNTL WBC BASIC 78023 ANA PEREZ METABOLIC 2 [facility] PANEL INC INC CALCIUM TOTAL CUL BACT 79035 ANA PEREZ XCPT 2 [facility] URINE INC INC BLOOD/STO OL AEROBIC ISOL CUL BACT 09288 ANA PEREZ AEROBIC 2 [facility] ADDL INC INC METHS DEFINITIV E EA ISOL SUSCEPTIB 77106 ANA PEREZ LTY STDY 2 [facility] ANTIMICRB INC INC IAL MICRO/AGA R DILUTJ INCISION 14483 SISI MILAN & 2 EMERGENCY IVAN [employer]IN[employer] ABSCESS COMPLICAT ED/MULTIP LE INCISION 59103 ANA PEREZ & 2 [facility] DRAINAGE INC INC ABSCESS SIMPLE/SI NGLE REMOVAL 89654 ALYSSA SHAH INTRAUTER 2 SALUD SALUD INE DEVICE IUD RADEX 63054 ANA PEREZ FOREARM 2 2 [facility] VIEWS INC INC URINE 79573 ALYSSA SHAH 2 SALUD SALUD TEST VISUAL COLOR CMPRSN METHS REMOVAL 71308 ALYSSA SHAH NON-BIODE 2 SALUD SALUD GRADABLE DRUG DELIVERY IMPLANT ETONOGEST J7307 ALYSSA SHAH REL 2 SALUD SALUD CNTRACPT IMPL SYS INCL IMPL & SPL I&D 46250 HAAKE BRA HAAKE BRA VULVA/PER 1 INEAL ABSCESS CUL BACT 94935 ANA PEREZ XCPT 0 [facility] URINE INC INC BLOOD/STO OL AEROBIC ISOL CUL BACT 91405 ANA PEREZ AEROBIC 0 [facility] ADDL INC INC METHS DEFINITIV E EA ISOL SUSCEPTIB 05907 ANA PEREZ LTY STDY 0 [facility] ANTIMICRB INC INC IAL MICRO/AGA R DILUTJ INCISION 08607 SISI AGUILERA & 0 EMERGENCY HOSTETTER DRAINAGE SERVICES M ABSCESS SIMPLE/SI ASSOCIATE JUWAN S OTH 8604 ANA PEREZ INCISION 0 [facility] W/DRAINAG INC INC E SKIN&[place] [address] [facility], TRANSVAGI 0 [facility] CULTURE 61443 ANA PEREZ BCT 0 [facility] ISOL&PRSM INC INC PTV ID ISOLATE EA URINE URNLS DIP 72042 ANA PEREZ 0 [facility] STICK/TAB INC INC LET REAGENT AUTO MICROSCOP Y SUSCEPTIB 71909 ANA PEREZ LTY STDY 0 [facility] ANTIMICRB INC INC IAL MICRO/[place] [address] ANA ANA THYROID 0 [facility] STIMULATI INC INC NG HORMONE TSH CULTURE 99846 ANA PEREZ BACTERIAL 0 [facility] INC INC QUANTTATI VE COLONY COUNT URINE BLOOD 45236 ANA PACHECOON COUNT 0 [facility] COMPLETE INC INC AUTO&AUTO DIFRNTL WBC COMPREHEN 81149 ANAWU PEREZ SIVE 0 [facility] [place] [address] ANA PACHECOON INFUSION 0 [facility] THERAPY/P INC INC ROPHYLAXI S /DX 1ST TO 1 [place] [address] ANA PACHECOON INFUSION 0 [facility] THERAPY INC [place] [address] ANA PACHECOON INFUSION 0 [facility] THER INC INC PROPH ADDL SEQUENTIA L TO 1 HR BLOOD 72586 ANA PACHECOON COUNT 0 [facility] COMPLETE INC INC AUTO&AUTO DIFRNTL WBC BASIC 15027 ANA PEREZ METABOLIC 0 [facility] PANEL INC INC CALCIUM TOTAL URINE 58597 ANA PEREZ 0 [facility] TEST INC INC VISUAL COLOR CMPRSN METHS URNLS DIP 23806 ANA ANA 0 [facility] STICK/TAB INC INC LET REAGENT AUTO MICROSCOP Y US PELVIC 92680 ANA PEREZ 0 [facility] NONOBSTET INC INC BONY REAL-TIME IMAGE COMPLETE RADEX 53406 [place], FOOT 9 MEDICAL HOA N COMPLETE SERV MINIMUM 3 FOUNDATIO VIEWS IADNA 60561 MEDICAL MEDICAL CHLAMYDIA 9 [facility] TRACHOMAT IS AMPLIFIED PROBE TQ IADNA 71155 MEDICAL MEDICAL NEISSERIA 9 [facility] GONORRHOE AE AMPLIFIED PROBE TQ URNLS DIP 74541 ANA PEREZ 9 [facility] STICK/TAB INC INC LET REAGENT AUTO MICROSCOP Y CULTURE 74831 ANA PEREZ BCT 9 [facility] ISOL&PRSM INC INC PTV ID ISOLATE EA URINE IAADI 81358 ANA PEREZ INFLUENZA 9 [facility] B VIRUS INC INC IAADI 98687 ANA PEREZ INFFLUENZ 9 [facility] A A VIRUS INC INC SUSCEPTIB 28893 ANA PEREZ LTY STDY 9 [facility] ANTIMICRB INC INC IAL MICRO/AGA R DILUTJ URINE 43492 ANA PEREZ 9 [facility] TEST INC INC VISUAL COLOR CMPRSN METHS CULTURE 02618 ANA PEREZ BACTERIAL 9 [facility] INC INC QUANTTATI VE COLONY COUNT URINE URINE 23873 ANA PEREZ 9 [facility] TEST INC INC VISUAL COLOR CMPRSN METHS URNLS DIP 73853 ANA PEREZ 9 [facility] STICK/TAB INC INC LET REAGENT AUTO MICROSCOP Y ANES 80065 [facility], INTEG 9 ANESTH MAHOGANY F EXTREMITI OF THE ES ANT BLUEGRASS TRUNK & PERINEUM NOS LEVEL III 82195 PATHOLOGY PATHOLOGY SURG 9 & & PATHOLOGY CYTOLOGY CYTOLOGY LAB LAB GROSS&IVAN ROSCOPIC EXAM EXCISION 19259 VLAD CHU HIDRADENI 9 , CHANDA , CHANDA TIS INGUINAL SMPL/[place] [address] ANA PEREZ INFUSION 9 [facility] THERAPY INC INC PROPHYLAX IS/DX EA HOUR EXCISION 82695 ANA PEREZ HIDRADENI 9 [facility] TIS [place] [address] ANA PEREZ INFUSION 9 [facility] THERAPY/P INC INC ROPHYLAXI S /DX 1ST TO 1 HR THERAPEUT 11972 ANA PEREZ IC 9 [facility] INJECTION INC INC IV PUSH EACH NEW DRUG OTH LOC 863 ANA PEREZ EXC/DESTR 9 [facility] UC INC INC LES/TISSU E SKN&SUBCU T TISSUE BASIC 70120 ANA ANA METABOLIC 9 [facility] PANEL INC INC CALCIUM TOTAL GONADOTRO 60720 ANA PEREZ PIN 9 [facility] CHORIONIC INC INC QUALITATI VE BLOOD 76327 ANA PEREZ COUNT 9 [facility] COMPLETE INC INC AUTO&AUTO DIFRNTL WBC CUL BACT 83047 COMBINED COMBINED XCPT 8 PHYSICIAN PHYSICIAN URINE S LAB S LAB BLOOD/[place] [address] [place], ABDOMEN 8 MEDICAL PRATIBHA W/O IMAGING CONTRAST ASSOCIATE MATERIAL S 3D 93950 [place], RENDERING 8 MEDICAL PRATIBHA IMAGING W/INTERP& ASSOCIATE POSTPROC S DIFF WORK STATION CT PELVIS 06958 [place], W/O 8 MEDICAL PRATIBHA CONTRAST IMAGING MATERIAL ASSOCIATE S BLOOD 45624 ANA PEREZ COUNT 8 [facility] COMPLETE INC INC AUTO&AUTO DIFRNTL WBC BASIC 07467 ANA PEREZ METABOLIC 8 [facility] PANEL INC INC CALCIUM TOTAL URINE 04917 ANA PEREZ 8 [facility] TEST INC INC VISUAL COLOR CMPRSN METHS URNLS DIP 36330 ANA PEREZ 8 [facility] STICK/TAB INC INC LET REAGENT AUTO MICROSCOP Y URINALYSI 38280 Makenzie DOMINGUEZ 8 MAINOR LUEVANO IC ONLY URNLS DIP 40745 ANA PEREZ 8 [facility] STICK/TAB INC INC LET REAGENT AUTO MICROSCOP Y IMMUNOASS 02592 ANA PEREZ AY NFCT 8 [facility] AGT ANTB INC INC QUAL/SEMI AMADEO 1 STEP IAADI 71713 ANAWU PEREZ INFFLUENZ 8 [facility] A A VIRUS INC INC IAADI 35339 ANA PEREZ INFLUENZA 8 [facility] B VIRUS INC INC COMPREHEN 58199 ANA [facility] SIVE 8 [facility] METABOLIC INC INC PANEL URINE 33463 ANA [facility] 8 [facility] TEST INC INC VISUAL COLOR CMPRSN METHS BLOOD 24775 ANA ANA COUNT 8 [facility] COMPLETE INC INC AUTO&AUTO DIFRNTL WBC CULTURE 86706 ANA [facility] BACTERIAL 8 [facility] INC INC QUANTTATI VE COLON[place] URINE [place] NFS 23763 ANA [facility]Z THER 8 [facility] PROPH/DX INC INC 1ST >1 HR IV NFUS 77544 ANA [facility]Z THER 8 [facility] PROPH/[place] [address] ANA [facility] STREPTOCO 8 [facility] [place] [address] ANA PEREZ HPYLORI 8 [facility] [place] [address] PATHOLOGY PATHOLOGY SURG 8 & & PATHOLOGY CYTOLOGY CYTOLOGY LAB LAB GROSS&IVAN ROSCOPIC EXAM [place] NFUS 15198 ANA PEREZ THER 8 [facility] PROPH/DX INC [place] HR IV NFS 45925 ANA [facility] THER 8 [facility] PROPH/DX INC INC 1ST >1 HR CUL BACT 63744 ANA [facility] XCPT 8 [facility] URINE INC INC BLOOD/STO OL AEROBIC ISOL BLOOD 91901 ANA [facility]Z COUNT 8 [facility] COMPLETE INC INC AUTO&AUTO DIFRNTL WBC BASIC 15857 ANA P[facility] METABOLIC 8 [facility] PANEL INC INC CALCIUM TOTAL SPCL STN 99014 PATHOLOGY PATHOLOGY 2 I&R 8 & & EXCPT CYTOLOGY CYTOLOGY MICROORG/ LAB LAB ENZYME/IM CYT SUSCEPTIB 10241 ANA [facility] LTY STDY 8 [facility] ANTIMICRB INC INC IAL MICRO/AGA R DILUTJ EGD 90412 [place] ARTIS, TRANSORAL 8 MEDICAL DIANE BIOPSY SERV SINGLE/MU FOUNDATIO LTIPLE ESOPHAGOG 4516 ANA [facility] ASTRODUOD 8 [facility] ENOSCOPY INC INC WITH CLOSED BIOPSY OTH 8604 ANA PEREZ INCISION 8 [facility] W/DRAINAG INC INC E SKIN&SUBC UTANEOUS TISSUE RADEX 04843 MARIALUISA SREE, HUMERUS 8 MEDICAL PRATIBHA MINIMUM 2 IMAGING VIEWS ASSOCIATE S RADEX 44442 ANA P[facility]Z FOREARM 2 8 [facility] VIEWS INC INC RADEX 24904 [place] SREE, WRIST 8 MEDICAL PRATIBHA COMPLETE IMAGING MINIMUM 3 ASSOCIATE VIEWS S RADEX 27080 [facility], HAND 8 MEDICAL PRATIBHA MINIMUM 3 IMAGING VIEWS ASSOCIATE S RADEX 13596 ANA PEREZ ELBOW 8 [facility] COMPLETE INC INC MINIMUM 3 VIEWS RADEX 20088 [facility], SMALL 8 MEDICAL PRATIBHA INTESTINE IMAGING ASSOCIATE W/[place] [address] ANA PEREZ CLOSTRIDI 8 [facility] [place] [address] ANA PEREZ GIARDIA 8 [facility] INC INC CUL BACT 65681 ANA PEREZ STOOL 8 [facility] AEROBIC INC INC ISOL SALMONELL A&SHIGELL OVA&CHEO 53227 ANA PEREZ ITES 8 [facility] DIRECT INC INC SMEARS [place] [address] ANA PEREZ THYROID 8 [facility] STIMULATI INC INC NG HORMONE TSH IIV3 72289 DHS/CO ANA VACCINE 8 [facility] VIRUS 0.5 BANK ACCT ML DOSAGE IM USE 61570 DODIE BOSE 8 MEDICAL RAQUEL P NAL IMAGING ASSOCIATE S Encounters Encounter Start End Date Code Location Performer Type Date HOSPITAL ANA - 7 7 [facility] OUTPATIEN INC T OFFICE 22678 [facility] HDZ OUTPATIEN 7 7 PHYSICIAN T NEW 30 S GROUP MINUTES EMERGENCY 51032 [facility] DEPT 7 7 EMERGENCY VISIT HIGH PHYSICIAN SEVERITY& S THREAT [facility] ANA - 7 7 [facility] OUTPATIEN INC T OFFICE 96092 ANA OUTPATIEN 7 7 [facility] T VISIT 5 INC MINUTES OFFICE 03161 ANA OUTPATIEN 7 7 [facility] T VISIT 5 INC [facility] ANA - 7 7 [facility] ANA - 7 7 [facility] ANA - 7 7 [facility] ANA - 7 7 [facility] OUTPATIEN [facility] T EMERGENCY 17262 EMERGENCY [facility] DEPT 7 7 MEDICINE VISIT HIGH PHYSICIAN SEVERITY& THREAT [facility] T OFFICE 32758 [facility] JUAN OUTPATIEN 7 7 PHYSICIAN T VISIT S GROUP 25 MINUTES OFFICE 58174 [facility] BJORN OUTPATIEN 6 6 PHYSICIAN T VISIT S GROUP 25 MINUTES EMERGENCY 43335 [facility] 6 6 N DEPARTMEN COMMUNTIY T VISIT HOSPITA MODERATE SEVERITY [facility] - 6 6 N OUTPATIEN COMMUNTIY T HOSPITA EMERGENCY 06656 ANA 6 6 [facility] DEPARTMEN INC T VISIT MODERATE SEVERITY HOSPITAL ANA - 6 6 [facility] OUTPATIEN INC T EMERGENCY 68968 KEITH MILAN 6 6 PHYSICIAN IVAN DEPARTMEN S, [facility] T VISIT HIGH/URGE NT SEVERITY HOSPITAL ANA - 6 6 [facility] OUTPATIEN INC T EMERGENCY 16778 ANA 6 6 [facility] DEPARTMEN INC T VISIT HIGH/URGE NT SEVERITY HOSPITAL [facility]NA - 6 6 [facility] 29723 [facility] PHYSICIAN IVAN T VISIT S GROUP 15 MINUTES HOSPITAL ANA - 6 6 [facility] T OFFICE 54649 [facility] FRYMAN OUTPATIEN 6 6 PHYSICIAN EUG T VISIT S GROUP 25 MINUTES OFFICE 33268 [facility] OUTPATIEN 6 6 PHYSICIAN IVAN T VISIT S GROUP 25 MINUTES OFFICE 64574 ANA PIERRE OUTPATIEN 6 6 [facility] T VISIT HOSPITAL 25 MINUTES OFFICE 36466 ANA STARR OUTPATIEN 6 6 [facility] T VISIT HOSPITAL 15 MINUTES EMERGENCY 00224 KEITH LUZ 6 6 PHYSICIAN U [facility] S, [facility] T VISIT MODERATE SEVERITY HOSPITAL ANA - 6 6 [facility] T EMERGENCY 66855 ANA 6 6 [facility] DEPARTMEN INC T VISIT LOW/MODER SEVERITY EMERGENCY 19801 KEITH LUZ 5 5 PHYSICIAN U [facility] S, [facility] T VISIT HIGH/URGE NT SEVERITY EMERGENCY 95921 ANA 5 5 [facility] DEPARTMEN INC T VISIT HIGH/URGE NT SEVERITY HOSPITAL ANA - 5 5 [facility] T EMERGENCY 15797 KEITH MILAN DEPT 5 5 PHYSICIAN IVAN VISIT S, [facility] HIGH SEVERITY& THREAT FUNCJ OFFICE 52830 ANA FRYMAN OUTPATIEN 5 5 [facility] 10 MINUTES OFFICE 93198 [facility] CHERISE TOD OUTPATIEN 5 5 PHYSICIAN T VISIT S GROUP 10 MINUTES HOSPITAL ANA - 5 5 [facility]PITAL ANA - 5 5 [facility] T OFFICE 43933 [facility] CHERISE TOD OUTPATIEN 5 5 PHYSICIAN T VISIT S GROUP 15 MINUTES OFFICE 55695 ANA FRYMAN OUTPATIEN 5 5 [facility] 15 MINUTES OFFICE 54526 [facility] BJORN OUTPATIEN 5 5 PHYSICIAN IVAN T VISIT S GROUP 15 MINUTES OFFICE 19196 [facility] BJORN OUTPATIEN 5 5 PHYSICIAN IVAN T VISIT S GROUP 10 MINUTES OFFICE 52701 [facility] BJORN OUTPATIEN 5 5 PHYSICIAN IVAN T VISIT S GROUP 15 MINUTES OFFICE 49572 [facility] BJORN OUTPATIEN 5 5 PHYSICIAN IVAN T VISIT S GROUP 15 MINUTES OFFICE 53220 [facility] BJORN OUTPATIEN 5 5 PHYSICIAN IVAN T VISIT S GROUP 10 MINUTES OFFICE 16881 [facility] BJORN OUTPATIEN 5 5 PHYSICIAN IVAN T VISIT S GROUP 25 MINUTES HOSPITAL ANA - 4 4 [facility] OUT[facility] INC OFFICE 93551 [facility] BJORN OUTPATIEN 4 4 PHYSICIAN IVAN T VISIT S GROUP 10 MINUTES HOSPITAL ANA - 4 4 [facility] INC OFFICE 41346 [facility] BJORN OUTPATIEN 4 4 PHYSICIAN IVAN T VISIT S GROUP 15 MINUTES EMERGENCY 29301 [facility] DEPT 4 4 ROBERT IVAN VISIT EMERGENCY HIGH PHYS SEVERITY& [facility] T OFFICE 52236 [facility] CHERISE DIAL OUTPATIEN 4 4 PHYSICIAN T VISIT S GROUP 15 MINUTES OFFICE 32252 [facility] BJORN OUTPATIEN 4 4 PHYSICIAN IVAN T VISIT S GROUP 10 MINUTES HOSPITAL ANA - 4 4 [facility] T OFFICE 19125 [facility] CHERISE DIAL OUTPATIEN 4 4 PHYSICIAN T VISIT S GROUP 25 MINUTES HOSPITAL ANA - 4 4 [facility] ANA - 4 4 [facility] ANA [facility] 4 4 [facility] ANA [facility] 4 4 [facility] ANA - 4 4 [facility] T OFFICE 74177 [facility] BJORN OUTPATIEN 4 4 PHYSICIAN IVAN T VISIT S GROUP 10 MINUTES HOSPITAL ANA - 4 4 [facility] ANA - 4 4 [facility] ANA [facility] 4 4 [facility] ANA - 4 4 [facility] ANA - 4 4 [facility] OUTPATIEN INC T OFFICE 50150 BJORN BJORN OUTPATIEN 4 4 IVAN IVAN T VISIT 10 MINUTES EMERGENCY 25044 ALFARIS ALFARIS 4 4 [facility] T VISIT HIGH/URGE NT SEVERITY OFFICE 34662 [facility] BJORN OUTPATIEN 4 4 PHYSICIAN IVAN T VISIT S GROUP 15 MINUTES EMERGENCY 71687 SOKAN BAB SOKAN BAB 4 4 DEPARTMEN T VISIT HIGH/URGE NT SEVERITY OFFICE 09433 [facility] BJORN OUTPATIEN 4 4 PHYSICIAN IVAN T VISIT S GROUP 10 MINUTES EMERGENCY 07377 BJORN BJORN DEPT 4 4 IVAN IVAN VISIT HIGH SEVERITY& THREAT FUNCJ OFFICE 50663 [facility] BJORN OUTPATIEN 4 4 PHYSICIAN IVAN T VISIT S GROUP 10 MINUTES OFFICE 17321 [facility] BJORN OUTPATIEN 4 4 PHYSICIAN IVAN T VISIT S GROUP 10 MINUTES OFFICE 32758 [facility] BJORN OUTPATIEN 4 4 PHYSICIAN IVAN T VISIT 5 S GROUP MINUTES HOSPITAL ANA - 4 4 [facility] OFFICE 30836 [facility] BJORN OUTPATIEN 4 4 PHYSICIAN IVAN T VISIT S GROUP 10 MINUTES OFFICE 36443 BJORN BJORN OUTPATIEN 4 4 IVAN IVAN T VISIT 10 MINUTES EMERGENCY 20950 BJORN BJORN 4 4 IVAN IVAN DEPARTMEN T VISIT HIGH/URGE NT SEVERITY OFFICE 47964 [facility] OUTPATIEN 4 4 PHYSICIAN T VISIT S GROUP 15 MINUTES OFFICE 23076 BJORN BJORN OUTPATIEN 4 4 IVAN IVAN T VISIT 10 MINUTES HOSPITAL ANA - 3 3 [facility] ANA - 3 3 [facility] ANA - 3 3 [facility] ANA - 3 3 [facility] ANA [facility] 3 3 [facility] ANA [facility] 3 3 [facility] ANA - 3 3 [facility] ANA - 3 3 [facility] ANA - 3 3 [facility] OUTPAT[facility] INC [facility] ANA - 3 3 [facility] ANA - 3 3 [facility] OFFICE 74255 BJORN MILAN OUTPATIEN 3 3 IVAN IVAN T VISIT 10 MINUTES HOSPITAL ANA - 3 3 [facility] OUTPAT[facility] INC OFFICE 76098 VLAD CUH OUTPATIEN 3 3 JELENA JELENA T VISIT 10 MINUTES OFFICE 95492 BJORN MILAN OUTPATIEN 3 3 IVAN IVAN T NEW 30 MINUTES HOSPITAL ANA - 3 3 [facility] OUTPAT[facility] INC EMERGENCY 54723 ARELLANO ARELLANO 3 3 JOHNATHAN JOHNATHAN DEPARTMEN T VISIT MODERATE SEVERITY EMERGENCY 16497 SOKAN BAB SOKAN BAB 3 3 DEPARTMEN T VISIT HIGH/URGE NT SEVERITY OFFICE 98536 FIELD AMB FIELD AMB OUTPATIEN 3 3 T VISIT 15 MINUTES OFFICE 06024 [facility] OUTPATIEN 3 3 PHYSICIAN T VISIT S GROUP 15 MINUTES OFFICE 96585 [facility] CONSULTAT 3 3 SALUD SALUD ION NEW/ESTAB PATIENT 40 MIN EMERGENCY 68281 ANA 3 3 [facility] DEPARTMEN INC T VISIT LOW/MODER SEVERITY HOSPITAL ANA - 3 3 [facility] OUTPATIEN INC T EMERGENCY 16495 BJORN MILAN 3 3 IVAN IVAN DEPARTMEN T VISIT MODERATE SEVERITY OFFICE 74836 JE Jackman OUTPATIEN 3 3 T VISIT 15 MINUTES OFFICE 01318 SAQIB CERRATO OUTPATIEN 3 3 BONY BONY T VISIT 15 MINUTES OFFICE 55022 SAQIB CERRATO OUTPATIEN 3 3 BONY BONY T VISIT 15 MINUTES EMERGENCY 36306 BJORN MILAN 3 3 [facility] DEPARTMEN T VISIT HIGH/URGE NT SEVERITY OFFICE 31581 [facility] OUTPATIEN 3 3 PHYSICIAN T VISIT S GROUP 15 MINUTES HOSPITAL ANA - 3 3 [facility] OUTPATIEN INC T EMERGENCY 91581 ANA 3 3 [facility] DEPARTMEN INC T VISIT HIGH/URGE NT SEVERITY EMERGENCY 09674 ANA 3 3 [facility] DEPARTMEN INC T VISIT LOW/MODER SEVERITY HOSPITAL ANA - 3 3 [facility] OUTPATIEN INC T EMERGENCY 03622 SISI ARNDT 3 3 [facility] VIS[facility] MODERATE SEVERITY OFFICE 89214 ALYSSA SHAH OUTPATIEN 3 3 SALUD SALUD T VISIT 25 MINUTES OFFICE 37108 SAQIB CERRATO OUTPATIEN 3 3 BONY BONY T NEW 30 MINUTES HOSPITAL ANA - 3 3 [facility] OUTPATIEN INC T OFFICE 41571 PETTEY PETTEY OUTPATIEN 3 3 JAM JAM T VISIT 15 MINUTES OFFICE 03526 GLORIA GLORIA OUTPATIEN 2 2 IJEOMA IJEOMA T VISIT 10 MINUTES HOSPITAL ANA - 2 2 [facility] OUT[facility] INC T OFFICE 11407 ARELLANO ARELLANO OUTPATIEN 2 2 JOHNATHAN JOHNATHAN T VISIT 15 MINUTES EMERGENCY 53985 ANA 2 2 [facility] DEPARTMEN INC T VISIT MODERATE SEVERITY HOSPITAL ANA - 2 2 [facility] OUTPAT[facility] INC T EMERGENCY 30378 SISI MELCHOR 2 2 EMERGENCY SAFIA DEPARTMEN SERVICES T VISIT HIGH/URGE NT SEVERITY OFFICE 28672 JOHNNA OROPEZA OUTPATIEN 2 2 DON DON T NEW 20 MINUTES HOSPITAL ANA - 2 2 [facility] INC T EMERGENCY 63138 DEYANIRA GOULDKEO 2 2 III AYANA III AYANA DEPARTMEN T VISIT HIGH/URGE NT SEVERITY EMERGENCY 70906 [facility] SE[facility] EM[facility] 14451 ANA 2 2 [facility] T VISIT LOW/MODER SEVERITY HOSPITAL ANA - 2 2 [facility] 00667 SISI MILAN 2 2 EMERGENCY [facility] DEPARTMEN SERVICES T VISIT HIGH/URGE NT SEVERITY HOSPITAL ANA - 2 2 [facility] OUTPATIEN [facility] ANA - 2 2 [facility] OUTPATIEN [facility] T OFFICE 78227 VLAD CHU CONSULTAT 2 2 JELENA JELENA ION NEW/ESTAB PATIENT 60 MIN OFFICE 16051 ALYSSA SHAH OUTPATIEN 2 2 SALUD SALUD T VISIT 25 MINUTES HOSPITAL ANA - 2 2 [facility] INC T EMERGENCY 24694 SISI MILAN 2 2 EMERGENCY [facility] DEPARTMEN SERVICES T VISIT HIGH/URGE NT SEVERITY EMERGENCY 48385 [facility] 2 [facility]OW/MODER SEVERITY OFFICE 54494 HOANG GRIMALDOES JUSTIN OUTPATIEN 2 2 T VISIT 15 MINUTES HOSPITAL ANA - 2 2 [facility] OUTPATIEN INC T OFFICE 07601 PETTEY PETTEY OUTPATIEN 2 2 JAM JAM T NEW 30 MINUTES OFFICE 32250 HOANG GLORIA JUSTIN OUTPATIEN 2 2 T NEW 30 MINUTES EMERGENCY 23167 JIM FERNANDEZ BRA 1 1 DEPARTMEN T VISIT HIGH/URGE NT SEVERITY EMERGENCY 52604 SISI AGUILERA, 0 0 EMERGENCY [facility] DEPARTMEN SERVICES M T VISIT HIGH/URGE ASSOCIATE NT S SEVERITY EMERGENCY 54112 ANA 0 0 [facility] DEPART[facility] INC T VISIT LOW/MODER SEVERITY HOSPITAL ANA - 0 0 [facility] ANA - 0 0 [facility] OFF[facility] 19034 SAYDA THOMAS, [facility] 0 0 [place] Jackman T VISIT INTERNAL 25 MED MINUTES HOSPITAL ANA - 0 0 [facility]ERGENC[facility] 19575 [facility] 0 0 [facility] T VISIT HIGH/URGE NT SEVERITY EMERGENCY 09785 SISI PLUNKETT, KAYYT 0 0 EMERGENCY BRIAN VISIT SERVICES O HIGH SEVERITY& ASSOCIATE THREAT S [facility] HOSPITAL UNIVERSIT - 9 9 [facility] T OFFICE 91392 RIZWANA WAGONER [facility] 9 9 MEDARDO Mcnamara T NEW 30 MINUTES HOSPITAL ANA - 9 9 [facility] T EMERGENCY 50256 SISI MILAN 9 9 EMERGENCY FRANC S DEPARTMEN SERVICES T VISIT MODERATE ASSOCIATE SEVERITY S EMERGENCY 18573 SISI GARCIA DEPT 9 9 EMERGENCY RONDAL E VISIT SERVICES HIGH SEVERITY& ASSOCIATE THREAT S [facility] EMERGENCY 91251 ANA 9 9 [facility] DEPARTMEN INC T VISIT MODERATE SEVERITY EMERGENCY 63863 SISI SOKAN, DEPT 9 9 EMERGENCY BRIAN VISIT SERVICES O HIGH SEVERITY& ASSOCIATE THREAT S [facility] ANA - 9 9 [facility] OUT[facility] ANA [facility] 9 9 [facility] ANA - 9 9 [facility] OUTPATIEN [facility] T OFFICE 66882 MAYDA MOBLEY 8 8 [place] GLEASON T VISIT INTERNAL 10 MED MINUTES OFFICE 72633 BLAYNE PRICE 8 8 [facility] VIJAY ORTA UROLOGY NEW/ESTAB PSC PATIENT 40 MIN HOSPITAL ANA - 8 8 [facility] ANA - 8 8 [facility] EMERGENCY 01562 ANA 8 8 [facility] DEPARTMEN [facility] T VISIT MODERATE SEVERITY OFFICE 76603 MAYDA DOMINGUEZ 8 8 MAINOR Parker T VISIT 25 MINUTES OFFICE 42958 MAYDA HAWKINS 8 8 AKBAR Parker T VISIT SERV 15 FOUNDATIO MINUTES EMERGENCY 16847 ANA 8 8 [facility] DEPARTMEN [facility] T VISIT HIGH/URGE NT SEVERITY HOSPITAL ANA - 8 8 [facility] OUTPATIEN [facility] T OFFICE 73332 SAYDA THOMAS OUTPATIALY 8 8 [place] Cole VISIT INTERNAL 15 MED MINUTES HOSPITAL ANA - 8 8 [facility] OUTPAT[facility]EN [facility] T EMERGENCY 97190 ANA 8 8 [facility] DEPARTMEN [facility] T VISIT HIGH/URGE NT SEVERITY HOSPITAL ANA - 8 8 [facility] OUTPATI[facility] T OFFICE 43556 [facility] [place] T VISIT INTERNAL MAHOGANY F 15 MED MINUTES HOSPITAL ANA - 8 8 [facility] ANA - 8 8 [facility] ANA - 8 8 [facility] ANA - 8 8 [facility] OUT[facility] OFFICE 26708 MAYDA DOMINGUEZ 8 8 MAINOR Cole VISIT 15 MINUTES
--- OUTSIDE RECORDS SUMMARY | 2017-03-02 08:15 | External Medical Summary Rpt | CCD ---
Author Author , STACIE QUINONES Address Unknown Phone [email or web address] Immunization Name Date Rout CVX Reac Dose Comm Prov Is Faci e tion ent ider Refu lity Give sed n Infl 09-2 0.5 Hist GSHA No GSHA uenz 5-20 mL oric NE NE a 17 al Quad Info rmat W/Pr ion es - Sour ce Unsp ecif ied Infl 08-0 Intr 141 999 Hist GSHA No GSHA uenz 1-20 amus oric NE NE a, 15 cula al Seas r Info onal rmat ion - Sour ce Unsp ecif ied
--- OUTSIDE RECORDS SUMMARY | 2017-03-02 08:15 | External Medical Summary Rpt | CCD ---
Author Author , STACIE QUINONES Address Unknown Phone [email or web address] Immunization Name Date Rout CVX Reac Dose [...]
== END 2017-02-23 18:08 | disposition home or self-care (01) ==
LOC: UTC 16:21
DX: J18.9 Pneumonia, unspecified organism (principal); F17.210 Nicotine dependence, cigarettes, uncomplicated; Z79.899 Other long term (current) drug therapy

== ENCOUNTER → 2017-03-26 | Outpatient (CLI) | payer MEDICAID | LOC: LAB 12:32 | DX: S81.802A Unspecified open wound, left lower leg, initial encounter (principal) ==

== ENCOUNTER 2017-03-27 18:53 | Emergency (ER) | payer MEDICAID ==
[~2017-03-27] VITALS: Ht 152.4 cm; Wt 52.2 kg
--- NOTE | 2017-03-27 19:16 | Emergency Room Report ---
History of Present Illness Time Seen by 1854 Comment Patient complains of an abscess on her LEFT proximal thigh. She says that she saw Dr. Bravo in the office yesterday and she had it lanced. She is on clindamycin and minocycline. She says that it has more swelling today. She says Dr. Bravo did not open it up and pack it. Usually that is what makes it better. She says culture shows MRSA. She says that she call Dr. Bravo today and he told her that she would need to see Dr. Chacko. She says that she called Dr. Chacko and was supposed to see him tomorrow morning but explained that she cannot miss work and what the situation was and he told her it would be best just to come to the emergency room. She has a history of recurrent abscesses. ALLERGIES Coded Allergies: bacitracin (From NEOSPORIN ([id number])) (Mild, 05/03/15) neomycin (From NEOSPORIN ([id number])) (Mild, 05/03/15) polymyxin B (From NEOSPORIN ([id number])) (Mild, 05/03/15) sulfamethoxazole (From BACTRIM) (Mild, 05/03/15) trimethoprim (From BACTRIM) (Mild, 05/03/15) Home Medications Active Scripts Levofloxacin (Levaquin 500MG) 500 MG PO DAILY #10 TAB Prov: 02/23/17 Clindamycin Hcl (Clindamycin 300MG) 300 MG PO QID #40 CAP Prov: 12/04/16 History Medical History General CAD? No Angina: No NH: No Hypertension? No Hyperlipidemia? No CHF? No DVT? No PE? No COPD? No Asthma? No Anemia? No GERD? No Gastric ulcers? No GI Bleed? No Hernia? No Thyroid Problems? No Hypothyroidism? No CVA? No Seizures? No Diabetes? No Renal Insuffiency? No End Stage Renal Disease? No UTI? Yes Stones? No BPH? No GB Disease: Yes Nephritic Syndrome? No Asplenia? No Hepatitis? No Sickle Cell Disease? No Arthritis? No Migraines? No Cataracts? No Glaucoma? No MRSA? Yes HIV? No TB? No Anxiety? No Depression? No Cancer? No More? No Immunization Hx DT/Tetanus 1-4 Years Ago Flu Refused Pneumonia Refuses Surgical Hx Previous Surgery?Y Tonsils L ARM BARTHOLIN CYST ORAL SURGERY-WISDOM TEETH OVARIAN CYST-X 2 LANCED RT BREAST LESION COLONOSCOPY LEFT LEG ABSCESS LEFT LEG SWEAT GLANDS LEG SWEAT GLAND REMOVAL L GROIN ABCESS RIGHT LEG SWEAT GLAND-RE MOVAL GROIN ABCESS DRAINED X3 LAP GOGO, I&D X3 IN P3MO Family History Family Hx Diabetes Yes CAD Yes Hypertension Yes Hyperlipidemia Yes Cancer Yes TB No Social History Smoking Hx Packs/day < 1 Pack Alcohol Alcohol: No Review of Systems All Other Systems Reviewed and Negative Constitutional denies fever Skin see HPI Physical Exam Vital Signs Vital Signs Date Time Temp Pulse Resp B/P Pulse O2 O2 Flow FiO2 Ox Delivery Rate 03/27 1955 98.2 110 20 132/91 99 03/27 1913 97.8 110 18 131/94 98 General Appearance no apparent distress Respiratory Status No: respiratory distress. Cardiovascular regular rate/rhythm, normal peripheral pulses Neurologic alert, no motor/sensory deficits Medical Decision Making LABS/Meds/Orders Pt receiving controlled substance in ED? No Ki was queried for this patient? Yes Comment [id number] rxs. last rx 03/26/17, 12 percocet 7.5mg Procedures Incision and Drainage Progress Incision/Drainage Performed by: JOE KELSEY Consent: Verbal consent obtained. Risks and benefits: risks, benefits and alternatives were discussed Consent given by: patient Patient identity confirmed: verbally with patient Type: abscess Location: LEFT inner thigh Anesthesia: local infiltration Local anesthetic: lidocaine 1% with epinephrine Patient sedated: no Scalpel size: 11 Incision type: single straight Complexity: simple Drainage: Bloody Drainage amount: Scant Wound treatment: probed for loculationsl. wound left open Packin/4 inch Culture: No Patient tolerance: Patient tolerated the procedure well with no immediate complications Departure Departure Disposition DC Home or Self Care(routine) Clinical Impression Primary Impression: Cutaneous abscess Qualifiers: Site of cutaneous abscess: extremity Site of cutaneous abscess of extremity: lower extremity Laterality: left Qualified Code: L02.416 - Cutaneous abscess of left lower limb Condition STABLE Referrals Lawrence SMART,Tolu Velázquez (Family) Patient Instructions DI for Incision and Drainage of a Skin Abscess Additional Instructions Additional instructions for ABSCESS: Day one and two: Remove the bandage and shower the area, leaving the packing in place. Gently blot dry. Apply a bandage. Day three: Follow-up with primary care physician, clinic, or Urgent Treatment Center for packing removal and culture results. Return to the emergency department if increasing pain, swelling, redness, redstreaks or fever greater than 101 degrees. ED Critical Care Critical Care No at 2012
--- NOTE | 2017-03-27 19:16 | Emergency Room Report ---
History of Present Illness Time Seen by 1854 Comment Patient complains of an abscess on her LEFT proximal thigh. She says that she saw Dr. Bravo in the office yesterday and she had it lanced. She is on clindamycin and minocycline. She says that it has more swelling today. She says Dr. Bravo did not open it up and pack it. Usually that is what makes it better. She says culture shows MRSA. She says that she call Dr. Bravo today and he told her that she would need to see Dr. Chacko. She says that she called Dr. Chacko and was supposed to see him tomorrow morning but explained that she cannot miss work and what the situation was and he told her it would be best just to come to the emergency room. She has a history of recurrent abscesses. ALLERGIES Coded Allergies: bacitracin (From NEOSPORIN ([id number])) (Mild, 05/03/15) neomycin (From NEOSPORIN ([id number])) (Mild, 05/03/15) polymyxin B (From NEOSPORIN ([id number])) (Mild, 05/03/15) sulfamethoxazole (From BACTRIM) (Mild, 05/03/15) trimethoprim (From BACTRIM) (Mild, 05/03/15) Home Medications Active Scripts Levofloxacin (Levaquin 500MG) 500 MG PO DAILY #10 TAB Prov: 02/23/17 Clindamycin Hcl (Clindamycin 300MG) 300 MG PO QID #40 CAP Prov: 12/04/16 History Medical History General CAD? No Angina: No PR: No Hypertension? No Hyperlipidemia? No CHF? No DVT? No PE? No COPD? No Asthma? No Anemia? No GERD? No Gastric ulcers? No GI Bleed? No Hernia? No Thyroid Problems? No Hypothyroidism? No CVA? No Seizures? No Diabetes? No Renal Insuffiency? No End Stage Renal Disease? No UTI? Yes Stones? No BPH? No GB Disease: Yes Nephritic Syndrome? No Asplenia? No Hepatitis? No Sickle Cell Disease? No Arthritis? No Migraines? No Cataracts? No Glaucoma? No MRSA? Yes HIV? No TB? No Anxiety? No Depression? No Cancer? No More? No Immunization Hx DT/Tetanus 1-4 Years Ago Flu Refused Pneumonia Refuses Surgical Hx Previous Surgery?Y Tonsils L ARM BARTHOLIN CYST ORAL SURGERY-WISDOM TEETH OVARIAN CYST-X 2 LANCED RT BREAST LESION COLONOSCOPY LEFT LEG ABSCESS LEFT LEG SWEAT GLANDS LEG SWEAT GLAND REMOVAL L GROIN ABCESS RIGHT LEG SWEAT GLAND-RE MOVAL GROIN ABCESS DRAINED X3 LAP GOGO, I&D X3 IN P3MO Family History Family Hx Diabetes Yes CAD Yes Hypertension Yes Hyperlipidemia Yes Cancer Yes TB No Social History Smoking Hx Packs/day < 1 Pack Alcohol Alcohol: No Review of Systems All Other Systems Reviewed and Negative Constitutional denies fever Skin see HPI Physical Exam Vital Signs Vital Signs Date Time Temp Pulse Resp B/P Pulse O2 O2 Flow FiO2 Ox Delivery Rate 03/27 1955 98.2 110 20 132/91 99 03/27 1913 97.8 110 18 131/94 98 General Appearance no apparent distress Respiratory Status No: respiratory distress. Cardiovascular regular rate/rhythm, normal peripheral pulses Neurologic alert, no motor/sensory deficits Medical Decision Making LABS/Meds/Orders Pt receiving controlled substance in ED? No Ki was queried for this patient? Yes Comment [id number] rxs. last rx 03/26/17, 12 percocet 7.5mg Procedures Incision and Drainage Progress Incision/Drainage Performed by: JOE KELSEY Consent: Verbal consent obtained. Risks and benefits: risks, benefits and alternatives were discussed Consent given by: patient Patient identity confirmed: verbally with patient Type: abscess Location: LEFT inner thigh Anesthesia: local infiltration Local anesthetic: lidocaine 1% with epinephrine Patient sedated: no Scalpel size: 11 Incision type: single straight Complexity: simple Drainage: Bloody Drainage amount: Scant Wound treatment: probed for loculationsl. wound left open Packin/4 inch Culture: No Patient tolerance: Patient tolerated the procedure well with no immediate complications Departure Departure Disposition DC Home or Self Care(routine) Clinical Impression Primary Impression: Cutaneous abscess Qualifiers: Site of cutaneous abscess: extremity Site of cutaneous abscess of extremity: lower extremity Laterality: left Qualified Code: L02.416 - Cutaneous abscess of left lower limb Condition STABLE Referrals Lawrence [facility]ART,Tolu Velázquez (Family) Patient Instructions DI for Incision and Drainage of a Skin Abscess Additional Instructions Additional instructions for ABSCESS: Day one and two: Remove the bandage and shower the area, leaving the packing in place. Gently blot dry. Apply a bandage. Day three: Follow-up with primary care physician, clinic, or [facility] for packing removal and culture results. Return to the emergency department if increasing pain, swelling, redness, redstreaks or fever greater than 101 degrees. ED Critical Care Critical Care No at 2012
--- OUTSIDE RECORDS SUMMARY | 2017-03-27 19:29 | External Medical Summary Rpt | CCD ---
Author Author [employer] Organization [employer] Address Unknown Phone Unavailable Purpose Continuity of Care Document - through 2016
--- OUTSIDE RECORDS SUMMARY | 2017-03-27 19:29 | External Medical Summary Rpt | CCD ---
Demographics Preferred Language Kosovan Marital Status Unknown Muslim Affiliation Unknown Race Unknown Ethnic Group Unknown Author Author , STACIE QUINONES Address Unknown Phone Immunization Unable to retrieve immunization data due to connection failure with Immunization Registry. Please try again later.
--- OUTSIDE RECORDS SUMMARY | 2017-03-27 19:29 | External Medical Summary Rpt | CCD ---
Demographics Preferred Language Malian Marital Status Unknown Buddhism Affiliation Unknown Race Unknown Ethnic Group Unknown Author Author , STACIE QUINONES Address Unknown Phone Immunization Unable to retrieve immunization data due to connection failure with Immunization Registry. Please try again later.
--- OUTSIDE RECORDS SUMMARY | 2017-03-27 19:29 | External Medical Summary Rpt | CCD ---
Author Author , STACIE QUINONES Address Unknown Phone [email or web address] Care [email or web address] Providers Care Carpet Cutter Name Role Phone Gomez Jc MD, Unavailable Unavailable Gomez ARNDT MD, Unavailable Unavailable MERVIN Roque MD, Unavailable Unavailable Terry Bravo MD, Unavailable Unavailable Kim Bravo MD Purpose Continuity of Care Document - 09-18-2012 through 2016 Problems Code Diagnosis DOS Provider Status V64.2 V64.2 NO 04-29-2013 [place] PROC/PATIEN [facility] T DECISION [facility] 305.1 305.1 04-11-2013 [place] TOBACCO USE [facility] DISORDER [facility] 424.0 424.0 04-11-2013 [place] 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 K52.9 NONINFECTIV E GASTROENTER ITIS AND COLITIS, UNSPECIFIED K56.7 ILEUS, UNSPECIFIED L03.90 CELLULITIS, UNSPECIFIED N93.8 OTHER SPECIFIED ABNORMAL UTERINE AND VAGINAL BLEEDING N93.9 ABNORMAL UTERINE AND VAGINAL BLEEDING, UNSPECIFIED R55 SYNCOPE AND COLLAPSE Allergies, Adverse Reactions, Alerts Type Drug Allergy Food Allergy Adverse Reaction to Substance Substance Reaction Severity Polymyxin B Unknown Unknown Neomycin Unknown Unknown Trimethoprim Unknown Unknown Sulfamethoxazole Unknown Unknown Bacitracin Unknown Unknown Mushroom J-PMNZGC-HDUA/THROAT/ Severe RASH Medications Na ND Rx Da Fi Fi Am Da Di Ph RX Ph St me C No te ll ll ou ys ag ar # ys at rm s nt no ma ic us Or Da si cy ia de te s n re d CL 00 11 0 No IN 40 [...] Ac MG ti /2 ve ML AL ID 00 08 0 No ED 05 -3 [...] ve DE IN E #3 TA K SO 00 05 0 No DI 40 [...] Ml ti ve Sy ri ng e ID 00 05 0 No OM 64 -2 ET 11 5- Lo PORTILLO 49 20 ng ZI 53 13 er NE 5 Ac 25 ti ve MG /M L AM PU L Mo 00 05 0 No rp 40 -2 hi 91 5- Lo ne 25 20 ng 83 13 er 4M 0 G/ Ac Ml ti ve Sy ri ng e Vital Signs 04-11-2013 12:24 Name Value Interpretat [...] 013 #/hpf ed S CELLS 14:56 URINE -25-2 2+ O complet BACTERI 013 ed A 14:56 COMPREHENSIVE METABOLIC PANEL (10-12-2012 14:48) Glucose 05-25-2 106 74-106 complet 013 mg/dL ed Bld-mCn 14:48 c BUN 0525-2 5 mg/dL 7-18 complet Bld-mCn 013 ed c 14:48 Creat 05-25-2 0.9 0.6-1.0 complet SerPl-m 013 mg/dL ed Cnc 14:48 GFR -25-2 78 59- complet (ESTIMA 013 ML/MIN ed CRISTIANO) 14:48 Sodium 0525-2 138 136-145 complet SerPl-s 013 mmoL/L ed Cnc 14:48 Potassi -25-2 4.0 3.5-5.1 complet um 013 mmoL/L ed SerPl-s 14:48 Cnc Chlorid 25-2 101 98-107 complet e 013 mmoL/L ed SerPl-s 14:48 Cnc CO2 25-2 29 21.0-32 complet SerPl-s 013 mmoL/L .0 [...] 013 K/mm3 ed Bld 14:48 Auto Monocyt 10-12-2 0.5 0.1-1.0 complet es # 013 K/mm3 ed Bld 14:48 Auto Eosinop 10-12-2 0.2 0.0-0.4 complet hil # 013 K/mm3 ed Bld 14:48 Auto Basophi 10-12-2 0.0 0-0.2 complet ls # 013 K/MM3 ed Bld 14:48 Auto Encounters Encounter Start End Date Code Location Performer Type Date Emergency BELGICA Bravo MD (ER) 3 20:45 3 21:00 [facility] Emergency BELGICA Jc MD (ER) 3 09:07 3 12:31 [facility] Emergency BELGICA Jc MD (ER) 3 13:06 3 13:51 [facility] Emergency BELGICA Bravo MD (ER) 3 00:01 3 00:25 [facility] Emergency BELGICA Bravo MD (ER) 3 21:18 3 21:50 [facility] Emergency BELGICA Roque (ER) 3 14:52 3 17:36 [facility] Emergency BELGICA ARNDT MD (ER) 3 18:13 3 20:03 [facility]
--- OUTSIDE RECORDS SUMMARY | 2017-03-27 19:29 | External Medical Summary Rpt | CCD ---
Author Author , STACIE QUINONES Address Unknown Phone [email or web address] Care Team Providers Care Detention Worker Name Role Phone Gomez Jc MD, Unavailable Unavailable Gomez ARNDT MD, Unavailable Unavailable MERVIN Roque MD, Unavailable Unavailable Terry Bravo MD, Unavailable Unavailable Kim Bravo MD Purpose Continuity of Care Document - 09-18-2012 through 2016 Problems Code Diagnosis DOS Provider Status V64.2 V64.2 NO 04-29-2013 [place] PROC/PATIEN [facility] T DECISION [facility] 305.1 305.1 04-11-2013 [place] TOBACCO USE [facility] DISORDER [facility] 424.0 424.0 04-11-2013 [place] 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 682.6 682.6 04-11-2013 [place] CELLULITIS [facility] V14.1 V14.1 04-11-2013 [facility] 883.1 883.1 OPEN 03-11-2013 [place] WOUND [facility] FINGER-COMP Hospital L E906.0 E906.0 DOG 03-11-2013 [place] BITE [facility] V12.04 V12.04 03-11-2013 [place] 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 V14.8 V14.8 03-11-2013 [place] HX-DRUG [facility] ALLERGY [facility] 787.03 787.03 10-12-2012 [place] VOMITING [facility] 789.01 789.01 10-12-2012 [place] ABDOMINAL [facility] PAIN, RIGHT Hospital UPPER QUADRANT 373.13 373.13 09-18-2012 [place] ABSCESS OF [facility] 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 WITHOUT [...] Sulfamethoxazole Unknown Unknown Bacitracin Unknown Unknown Mushroom S-AUSIGP-GBJV/THROAT/ Severe RASH Medications Na ND Rx Da [...] Ac MG ti /2 ve ML AL [place] 00 08 0 No ED 05 -3 [...] Ml ti ve Sy ri ng e [place] 00 05 0 No OM 64 -2 [...] Bravo MD (ER) 3 20:45 3 21:00 [facility] Emergency BELGICA Jc MD (ER) 3 09:07 3 12:[address] [facility] Emergency BELGICA Jc MD (ER) 3 13:06 3 13:[address] [facility] Emergency BELGICA Bravo MD (ER) 3 00:01 3 00:25 [facility] Emergency BELGICA Bravo MD (ER) 3 21:18 3 21:50 [facility] Emergency BELGICA Roque (ER) 3 14:52 3 17:36 [facility] Emergency BELGICA ARNDT MD (ER) 3 18:13 3 20:03 [facility]
[2017-03-27 19:55] VITALS: BP 132/91
== END 2017-03-27 19:59 | disposition home or self-care (01) ==
LOC: ER 18:53
PROC: 0H9JXZZ Drainage of Left Upper Leg Skin, External Approach (ICD-10-PCS; principal; 2017-03-27)
DX: L02.416 Cutaneous abscess of left lower limb (principal)

== ENCOUNTER 2017-04-02 20:05 | Inpatient (IN) | payer MEDICAID ==
[~2017-04-02] VITALS: Ht 152.4 cm; Wt 58.2 kg
[2017-04-02 20:11] VITALS: BP 150/86
[2017-04-02] MEDS ORDERED: ADDERALL 20 MG20 MG PO (20:17)
--- OUTSIDE RECORDS SUMMARY | 2017-04-02 20:20 | External Medical Summary Rpt | CCD ---
Author Author , STACIE QUINONES Address Unknown Phone [email or web address] Care Team Providers Care Silk Screen Operator Name Role Phone Gomez Jc MD, Unavailable Unavailable Gomez ARNDT MD, Unavailable Unavailable MERVIN Roque MD, Unavailable Unavailable Terry Bravo MD, Unavailable Unavailable Kim Bravo MD Purpose Continuity of Care Document - 09-18-2012 through 2016 Problems Code Diagnosis DOS Provider Status V64.2 V64.2 NO 04-29-2013 [place] PROC/PATIEN [facility] T DECISION [facility] 305.1 305.1 04-11-2013 [place] TOBACCO USE [facility] DISORDER [facility] 424.0 424.0 04-11-2013 [place] 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 682.6 682.6 04-11-2013 [place] CELLULITIS [facility] V14.1 V14.1 04-11-2013 [facility]-ANTIBI[facility] 883.1 883.1 OPEN 03-11-2013 [place] WOUND [facility] FINGER-COMP [facility] L E906.0 E906.0 DOG 03-11-2013 [place] BITE [facility] V12.04 V12.04 03-11-2013 [place] PERSONAL [facility] METHICILLIN RESISTANT STAPHYLOCOC CUS AUREUS V14.8 V14.8 03-11-2013 [facility]-DRUG [facility] ALLERGY 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 K52.9 NONINFECTIV E GASTROENTER ITIS AND COLITIS, UNSPECIFIED K56.7 ILEUS, UNSPECIFIED L02.91 CUTANEOUS ABSCESS, UNSPECIFIED L03.90 CELLULITIS, UNSPECIFIED N93.8 OTHER SPECIFIED ABNORMAL UTERINE AND VAGINAL BLEEDING N93.9 ABNORMAL UTERINE AND VAGINAL BLEEDING, UNSPECIFIED R10.84 Generalized abdominal pain R55 SYNCOPE AND COLLAPSE Allergies, Adverse Reactions, Alerts Type Drug Allergy Food Allergy Adverse Reaction to Substance Substance Reaction Severity Polymyxin B Unknown Unknown Neomycin Unknown Unknown Trimethoprim Unknown Unknown Sulfamethoxazole Unknown Unknown Bacitracin Unknown Unknown Mushroom I-KSCJMR-GSEV/THROAT/ Severe RASH Medications Na ND Rx Da [...] Order Detail nces retati t Range on Gram negative automated antibiotic susceptibility test (03-30-2017 06:30) Vancomy 11-10-2 = 1 complet stanislav 017 ug/ml ed suscept 06:30 ibility test by minimum inhibit ory concent ration Tetracy 11-10-2 = 2 complet miller 017 ug/ml ed suscept 06:30 ibility test by minimum inhibit ory concent ration Rifampi 11-10-2 <= 0.5 complet n 017 ug/ml ed suscept 06:30 ibility test by minimum inhibit ory concent ration Penicil 11-10-2 >= 0.5 complet nara G 017 ug/ml ed suscept 06:30 ibility test by minimum inhibit ory concent ration Oxacill 11-10-2 >= 4 complet in 017 ug/ml ed suscept 06:30 ibility test by minimum inhibit ory concent ration Levoflo 11-10-2 = 4 complet xacin 017 ug/ml ed suscept 06:30 ibility test by minimum inhibit ory concent ration Gentami 11-10-2 = 8 complet stanislav 017 ug/ml ed suscept 06:30 ibility test by minimum inhibit ory concent ration Erythro 11-10-2 >= 8 complet mycin 017 ug/ml ed suscept 06:30 ibility test by minimum inhibit ory concent ration Clindam 11-10-2 >= 8 complet ycin 017 ug/ml ed suscept 06:30 ibility test by minimum inhibit ory concent ration Wound culture (03-26-2017 11:00) Wound [id number] complet culture 017 1 ed 11:00 Staphyl ococcus epiderm idis SCT SEPI STAPHYL OCOCCUS EPIDERM IDIS L B-HCG Ur Ql (10-12-2012 14:56) B-HCG 05-25-2 [...] SerPl-m 013 mg/dL ed Cnc 14:48 GFR 05-25-2 78 59- complet (ESTIMA 013 ML/MIN ed [...] Bravo MD (ER) 3 20:45 3 21:00 [facility] Emergency BELGICA Jc MD (ER) 3 09:07 3 12:31 [facility] Emergency BELGICA Jc MD (ER) 3 13:06 3 13:51 [facility] Emergency BELGICA Bravo MD (ER) 3 00:01 3 00:25 [facility] Emergency BELGICA Bravo MD (ER) 3 21:18 3 21:50 [facility] Emergency BELGICA Roque (ER) 3 14:52 3 17:36 [facility] Emergency BELGICA ARNDT MD (ER) 3 18:13 3 20:03 [facility]
--- OUTSIDE RECORDS SUMMARY | 2017-04-02 20:20 | External Medical Summary Rpt | CCD ---
Author Author , STACIE QUINONES Address Unknown Phone [email or web address] Care Team Providers Care Loading Unit Operator Name Role Phone Gomez Jc MD, Unavailable Unavailable Gomez ARNDT MD, Unavailable Unavailable MERVIN Roque MD, Unavailable Unavailable Terry Bravo MD, Unavailable Unavailable Kim Bravo MD Purpose Continuity of Care Document - 09-18-2012 through 2016 Problems Code Diagnosis DOS Provider Status V64.2 V64.2 NO 04-29-2013 [place] PROC/PATIEN [facility] T DECISION [facility] 305.1 305.1 04-11-2013 [place] TOBACCO USE [facility] DISORDER [facility] 424.0 424.0 04-11-2013 [place] 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 883.1 883.1 OPEN 03-11-2013 [place] WOUND [facility] FINGER-COMP [facility] L E906.0 E906.0 DOG 03-11-2013 [place] BITE [facility] V12.04 V12.04 03-11-2013 [place] PERSONAL [facility] METHICILLIN RESISTANT STAPHYLOCOC CUS AUREUS V14.8 V14.8 03-11-2013 [facility]-DRUG [facility] ALLERGY [facility] Hospital 787.03 787.03 10-12-2012 [place] VOMITING [facility] 789.01 789.01 10-12-2012 [place] ABDOMINAL [facility] PAIN, RIGHT Hospital UPPER QUADRANT 373.13 373.13 09-18-2012 [place] ABSCESS OF [facility] 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 [...] Sulfamethoxazole Unknown Unknown Bacitracin Unknown Unknown Mushroom P-GSLVGW-EUHS/THROAT/ Severe RASH Medications Na ND Rx Da [...] Ac MG ti /2 ve ML AL [place] 00 08 0 No ED 05 -3 [...] Ml ti ve Sy ri ng e [place] 00 05 0 No OM 64 -2 [...] concent ration Wound culture (03-26-2017 11:00) Wound [id number] complet culture 017 1 ed 11:00 Staphyl [...] Bravo MD (ER) 3 20:45 3 21:00 [facility] Emergency BELGICA Jc MD (ER) 3 09:07 3 12:31 [facility] Emergency BELGICA Jc MD (ER) 3 13:06 3 13:51 [facility] Emergency BELGICA Bravo MD (ER) 3 00:01 3 00:25 [facility] Emergency BELGICA Bravo MD (ER) 3 21:18 3 21:50 [facility] Emergency BELGICA Roque (ER) 3 14:52 3 17:[address] [facility] Emergency BELGICA ARNDT MD (ER) 3 18:13 3 20:03 [facility]
--- OUTSIDE RECORDS SUMMARY | 2017-04-02 20:21 | External Medical Summary Rpt | CCD ---
Author Author , STACIE QUINONES Address Unknown Phone [email or web address] Immunization Name Date Rout CVX Reac Dose [...]
--- OUTSIDE RECORDS SUMMARY | 2017-04-02 20:21 | External Medical Summary Rpt | CCD ---
Author Author , STACIE QUINONES Address Unknown Phone [email or web address] Immunization Name Date Rout CVX Reac Dose [...]
--- NOTE | 2017-04-02 20:32 | Emergency Room Report ---
History of Present Illness Time Seen by 2013 Presenting Problem in Triage Pt arrived:Walked Presenting Problem:INFECTION IN LEG SINCE SUNDAY OF LAST WEEK. STATES IT WAS LANCED AND OPENED BACK UP AND PACKED AND HASNT GOTTEN ANY BETTER. Onset of symptoms date/time:/ or onset unknown for:MEDICAL HX UNKNOWN Treatment Prior to Arrival: DR GARCIA [facility] [employer] Provided by:SELF Sepsis Risk Assessment: Temp: 98.3 B/P: 150/86 MAP: 107 Pulse: 116 Resp: 20 Recent fever? Y Clinical Suspician of Infection? Y Mental Status: 1 - Regular (Normal Baseline) Sepsis Risk:Possible Sepsis Risk Have you (or family members/close friends) recently traveled outside the [place]? N If Yes, where/when: Have you had exposure to infectious disease within the past month? N TB? Other? Specify: Source patient, RN notes reviewed, old records Exam Limitations no limitations Comment wf with cellulitis to lt thigh and groin which has i/d x 2 and seen in pcp x2 and ed x 1 and despite op abx has progressive sx with fever and more reddness and pain and presents to ed for eval Cardiac Chest Pain Chest pain indicative of cardiac No Timing/Duration this evening Severity moderate ALLERGIES Coded Allergies: bacitracin (From NEOSPORIN ([id number])) (Mild, 05/03/15) neomycin (From NEOSPORIN ([id number])) (Mild, 05/03/15) polymyxin B (From NEOSPORIN ([id number])) (Mild, 05/03/15) sulfamethoxazole (From BACTRIM) (Mild, 05/03/15) trimethoprim (From BACTRIM) (Mild, 05/03/15) Home Medications Reported Medications Dextroamphetamine/Amphetamine (Adderall 20 MG Tablet) 20 MG PO BID History Medical History General CAD? No Angina: No PA: No Hypertension? No Hyperlipidemia? No CHF? No DVT? No PE? No COPD? No Asthma? No Anemia? No GERD? No Gastric ulcers? No GI Bleed? No Hernia? No Thyroid Problems? No Hypothyroidism? No CVA? No Seizures? No Diabetes? No Renal Insuffiency? No End Stage Renal Disease? No UTI? Yes Stones? No BPH? No GB Disease: Yes Nephritic Syndrome? No Asplenia? No Hepatitis? No Sickle Cell Disease? No Arthritis? No Migraines? No Cataracts? No Glaucoma? No MRSA? Yes HIV? No TB? No Anxiety? No Depression? No Cancer? No More? 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 Respiratory denies cough, denies shortness of breath, denies wheezing Cardiovascular denies chest pain, denies palpitations, denies syncope Gastrointestinal denies abdominal pain, denies diarrhea, denies vomiting Genitourinary denies: dysuria, frequency, hesitancy, hematuria. Musculoskeletal denies back pain, denies joint pain, denies joint swelling, denies neck pain Skin see HPI, denies rash, other Psychiatric/Neurological denies headache, denies seizure Physical Exam Vital Signs Vital Signs Date Time Temp Pulse Resp B/P Pulse O2 O2 Flow FiO2 Ox Delivery Rate 04/02 2011 98.3 116 20 150/86 99 - WBC >12,000 or <4,000 or 10% bands? 2 or more SIRS Criteria Met? B/P:150/86 MAP:107 Creatinine >2.0? UA output<0.5ml/kg/hr for 2 hrs? Platelet count >100,000? Lactate >2.0mmol/1? INR >1.2 or PTT > than 60 sec? Evidence of Organ Dysfunction? Provider documented clinical suspician of infection? Y Sepsis Criteria Count: 2 Sepsis Risk: Possible Sepsis Risk General Appearance no apparent distress Eye Exam - bilateral eye PERRL, bilateral eye EOMI Ear, Nose, Throat normal ENT inspection Neck supple Respiratory Status No: respiratory distress. Lung Sounds bilateral: lungs clear. 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 No Results/Orders Laboratory Tests 04/02/17 0600: Lactic Acid Pending 04/02/17599: Sodium Pending, Potassium Pending, Chloride Pending, Carbon Dioxide Pending, BUN Pending, Creatinine Pending, Estimated Creat Clear Pending, Estimated GFR (MDRD) Pending, Glucose Pending, Calcium Pending, Total Bilirubin Pending, AST Pending, ALT Pending, Alkaline Phosphatase Pending, Total Protein Pending, Albumin Pending, Globulin Pending, Albumin/Globulin Ratio Pending, WBC Pending, RBC Pending, Hgb Pending, Hct Pending, MCV Pending, RDW Pending, Plt Count Pending, Gran % Pending, Gran # Pending, Lymphocytes % Pending, Eosinophils % Pending, Basophils % Pending, Lymphocytes # Pending, Eosinophils # Pending, Basophils # Pending, PUBS MCHC Pending, ESR Pending, MCH Pending Current Medication Orders Sig/Matthias Start time Last Medication Dose Route Stop Time Status Admin Vancomycin HCl 1,000 MG ONCE ONE 04/02 2045 AC IV 04/02 2046 Sodium Chloride 250 ML .STK-MED ONE 04/02 2037 DC IV Vancomycin HCl 0 .STK-MED ONE 04/02 2036 DC .ROUTE Sodium Chloride 10 ML PRN PRN 04/02 2015 AC IV 04/03 2015 Orders Procedure Date/time Status LACTIC ACID 04/02 2024 Active IV SALINE LOCK 04/02 2015 Active CULTURE, BLOOD 04/02 2015 Active SED RATE 04/02 2015 Active COMPLETE METABOLIC PANEL 04/02 2015 Active CBC WITH AUTO DIFF 04/02 2015 Active Departure Departure Time of Disposition 2030 Disposition Still a Patient Clinical Impression Primary Impression: Cellulitis of groin, left Condition STABLE Referrals Lawrence SMART,Tolu Velázquez (Family) Additional Instructions will admit for iv abx as pt has failed op rx ED Critical Care Critical Care No at 2042
--- NOTE | 2017-04-02 20:32 | Emergency Room Report ---
History of Present Illness Time Seen by 2013 Presenting Problem in Triage Pt arrived:Walked Presenting Problem:INFECTION IN LEG SINCE SUNDAY OF LAST WEEK. STATES IT WAS LANCED AND OPENED BACK UP AND PACKED AND HASNT GOTTEN ANY BETTER. 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 Y Clinical Suspician of Infection? Y Mental Status: 1 - Regular (Normal Baseline) Sepsis Risk:Possible Sepsis Risk Have you (or family members/close friends) recently traveled outside the [place]? N If Yes, where/when: Have you had exposure to infectious disease within the past month? N TB? Other? Specify: Source patient, RN notes reviewed, old records Exam Limitations no limitations Comment wf with cellulitis to lt thigh and groin which has i/d x 2 and seen in pcp x2 and ed x 1 and despite op abx has progressive sx with fever and more reddness and pain and presents to ed for eval Cardiac Chest Pain Chest pain indicative of cardiac No Timing/Duration this evening Severity moderate ALLERGIES Coded Allergies: bacitracin (From NEOSPORIN ([id number])) (Mild, 05/03/15) neomycin (From NEOSPORIN ([id number])) (Mild, 05/03/15) polymyxin B (From NEOSPORIN ([id number])) (Mild, 05/03/15) sulfamethoxazole (From BACTRIM) (Mild, 05/03/15) trimethoprim (From BACTRIM) (Mild, 05/03/15) Home Medications Reported Medications Dextroamphetamine/Amphetamine (Adderall 20 MG Tablet) 20 MG PO BID History Medical History General CAD? No Angina: No VT: No Hypertension? No Hyperlipidemia? No CHF? No DVT? No PE? No COPD? No Asthma? No Anemia? No GERD? No Gastric ulcers? No GI Bleed? No Hernia? No Thyroid Problems? No Hypothyroidism? No CVA? No Seizures? No Diabetes? No Renal Insuffiency? No End Stage Renal Disease? No UTI? Yes Stones? No BPH? No GB Disease: Yes Nephritic Syndrome? No Asplenia? No Hepatitis? No Sickle Cell Disease? No Arthritis? No Migraines? No Cataracts? No Glaucoma? No MRSA? Yes HIV? No TB? No Anxiety? No Depression? No Cancer? No More? 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 Respiratory denies cough, denies shortness of breath, denies wheezing Cardiovascular denies chest pain, denies palpitations, denies syncope Gastrointestinal denies abdominal pain, denies diarrhea, denies vomiting Genitourinary denies: dysuria, frequency, hesitancy, hematuria. Musculoskeletal denies back pain, denies joint pain, denies joint swelling, denies neck pain Skin see HPI, denies rash, other Psychiatric/Neurological denies headache, denies seizure Physical Exam Vital Signs Vital Signs Date Time Temp Pulse Resp B/P Pulse O2 O2 Flow FiO2 Ox Delivery Rate 04/02 2011 98.3 116 20 150/86 99 - WBC >12,000 or <4,000 or 10% bands? 2 or more SIRS Criteria Met? B/P:150/86 MAP:107 Creatinine >2.0? UA output<0.5ml/kg/hr for 2 hrs? Platelet count >100,000? Lactate >2.0mmol/1? INR >1.2 or PTT > than 60 sec? Evidence of Organ Dysfunction? Provider documented clinical suspician of infection? Y Sepsis Criteria Count: 2 Sepsis Risk: Possible Sepsis Risk General Appearance no apparent distress Eye Exam - bilateral eye PERRL, bilateral eye EOMI Ear, Nose, Throat normal ENT inspection Neck supple Respiratory Status No: respiratory distress. Lung Sounds bilateral: lungs clear. 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 No Results/Orders Laboratory Tests 04/02/17 0600: Lactic Acid Pending 04/02/17599: Sodium Pending, Potassium Pending, Chloride Pending, Carbon Dioxide Pending, BUN Pending, Creatinine Pending, Estimated Creat Clear Pending, Estimated GFR (MDRD) Pending, Glucose Pending, Calcium Pending, Total Bilirubin Pending, AST Pending, ALT Pending, Alkaline Phosphatase Pending, Total Protein Pending, Albumin Pending, Globulin Pending, Albumin/Globulin Ratio Pending, WBC Pending, RBC Pending, Hgb Pending, Hct Pending, MCV Pending, RDW Pending, Plt Count Pending, Gran % Pending, Gran # Pending, Lymphocytes % Pending, Eosinophils % Pending, Basophils % Pending, Lymphocytes # Pending, Eosinophils # Pending, Basophils # Pending, PUBS MCHC Pending, ESR Pending, MCH Pending Current Medication Orders Sig/Matthias Start time Last Medication Dose Route Stop Time Status Admin Vancomycin HCl 1,000 MG ONCE ONE 04/02 2045 AC IV 04/02 2046 Sodium Chloride 250 ML .STK-MED ONE 04/02 2037 DC IV Vancomycin HCl 0 .STK-MED ONE 04/02 2036 DC .ROUTE Sodium Chloride 10 ML PRN PRN 04/02 2015 AC IV 04/03 2015 Orders Procedure Date/time Status LACTIC ACID 04/02 2024 Active IV SALINE LOCK 04/02 2015 Active CULTURE, BLOOD 04/02 2015 Active SED RATE 04/02 2015 Active COMPLETE METABOLIC PANEL 04/02 2015 Active CBC WITH AUTO DIFF 04/02 2015 Active Departure Departure Time of Disposition 2030 Disposition Still a Patient Clinical Impression Primary Impression: Cellulitis of groin, left Condition STABLE Referrals Lawrence SMART,Tolu Velázquez (Family) Additional Instructions will admit for iv abx as pt has failed op rx ED Critical Care Critical Care No at 2042
[2017-04-02 20:39] LABS: LYMPH # 4.6 K/mm3 (0.7-4.5); LYMPH % 20.4 % (10-50.0)
--- OUTSIDE RECORDS SUMMARY | 2017-04-02 21:03 | External Medical Summary Rpt | CCD ---
Author Author , STACIE QUINONES Address Unknown Phone [email or web address] Care Team Providers Care Workers Compensation Legal Secretary Name Role Phone Gomez Jc MD, Unavailable Unavailable Gomez ARNDT MD, Unavailable Unavailable MERVIN Roque MD, Unavailable Unavailable Terry Bravo MD, Unavailable Unavailable Kim Bravo MD Purpose Continuity of Care Document - 09-18-2012 through 2016 Problems Code Diagnosis DOS Provider Status V64.2 V64.2 NO 04-29-2013 [place] PROC/PATIEN [facility] T DECISION [facility] 305.1 305.1 04-11-2013 [place] TOBACCO USE [facility] DISORDER [facility] 424.0 424.0 04-11-2013 [place] 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 682.6 682.6 04-11-2013 [place] CELLULITIS [facility] V14.1 V14.1 04-11-2013 [facility]-ANTIBIOT [facility] 883.1 883.1 OPEN 03-11-2013 [place] WOUND [facility] FINGER-COMP [facility] L E906.0 E906.0 DOG 03-11-2013 [place] BITE [facility] V12.04 V12.04 03-11-2013 [place] PERSONAL [facility] METHICILLIN RESISTANT STAPHYLOCOC CUS AUREUS V14.8 V14.8 03-11-2013 [facility]-DRUG [facility] ALLERGY [facility] Hospital 787.03 787.03 10-12-2012 [place] VOMITING [facility] 789.01 789.01 10-12-2012 [place] ABDOMINAL [facility] PAIN, RIGHT Hospital UPPER QUADRANT 373.13 373.13 09-18-2012 [place] ABSCESS OF [facility] 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 [...] Sulfamethoxazole Unknown Unknown Bacitracin Unknown Unknown Mushroom B-[id number]-[id number]/THROAT/ Severe RASH Medications Na ND Rx Da [...] Ac MG ti /2 ve ML AL GA 00 08 0 No ED 05 -3 [...] Ml ti ve Sy ri ng e GA 00 05 0 No OM 64 -2 [...] Order Detail nces retati t Range on Comprehensive metabolic panel (04-02-2017) Serum 11--2 = 3.7 3.4-5.0 complet or 017 gm/dL ed plasma albumin measure ment (mas Serum 2 = 103 46-116 complet or 017 U/L ed plasma alkalin e phospha tase ivonne Serum 2 = 0.2 0.2-1.0 complet or 017 mg/dL ed plasma total bilirub in measure m Serum 2 = 9 7-18 complet or 017 mg/dL ed plasma urea nitroge n measure men Serum 04-02-2 = 8.7 8.5-10. complet or 017 mg/dL 1 ed plasma calcium measure ment (mas Serum 2 = 104 98-107 complet or 017 mmoL/L ed plasma chlorid e measure ment (mo Carbon = 26 21.0-32 complet dioxide 017 mmoL/L .0 ed measure ment Serum 2 = 0.8 0.55-1. complet or 017 mg/dL 02 ed plasma creatin ine measure ment ( Estimat 2 = 97 50-200 complet ion of 017 ML/MIN ed creatin ine renal clearan ce Estimat = 85 59- complet ed 017 ML/MIN ed glomeru lar filtrat ion rate (GF Comment: REFERENCE RANGE: >60 ML/MIN/1.73 SQUARE METERS Comment: If this patient is -Mozambican, then multiply the Comment: result by 1.210. Serum 04-02-2 = 3.5 1.3-3.2 complet globuli 017 gm/dL ed n measure ment (mass/v olume) Serum 04-02-2 = 87 74-106 complet or 017 mg/dL ed plasma glucose measure ment (mas Serum = 3.4 3.5-5.1 complet potassi 017 mmoL/L ed um measure ment Serum = 143 136-145 complet sodium 017 mmoL/L ed measure ment Serum = 15 15-37 complet or 017 U/L ed plasma asparta te aminotr ansfera ALT = 30 12-78 complet (SGPT) 017 U/L ed ser/lisandro s Protein = 7.2 6.4-8.2 complet total 017 gm/dL ed ser/lisandro s Serum = 1.1 1.1-1.8 complet or 017 ed plasma albumin /globul in mass ra Blood lactic acid measurement (moles/vol (04-02-2017) Blood = 2.2 0.4-2.0 complet lactic 017 mmol/L ed acid measure ment (moles/ vol Comment: An elevated Lactic Acid is suggestive of sepsis and should Comment: be repeated within 6 hours of initial testing. Gram negative automated antibiotic susceptibility test (03-30-2017 06:30) Clindam 11-10-2 >= 8 complet ycin 017 ug/ml ed suscept 06:30 ibility test by minimum inhibit ory concent ration Erythro 10-2 >= 8 complet mycin 017 ug/ml ed suscept 06:30 ibility test by minimum inhibit ory concent ration Gentami -10-2 = 8 complet stanislav 017 ug/ml ed [...] test by minimum inhibit ory concent ration Vancomy = 1 complet stanislav 017 ug/ml ed suscept 06:30 ibility test by minimum inhibit ory concent ration Wound culture (03-26-2017 11:00) Wound [id number] complet culture 017 1 ed 11:00 Staphyl [...] 14:56 COMPREHENSIVE METABOLIC PANEL (10-12-2012 14:48) Glucose 0525-2 106 74-106 complet 013 mg/dL ed Bld-mCn 14:48 c BUN 0525-2 5 mg/dL 7-18 complet Bld-mCn 013 ed c 14:48 Creat 05-25-2 0.9 0.6-1.0 complet SerPl-m 013 mg/dL ed Cnc 14:48 GFR 25-2 78 59- complet (ESTIMA 013 ML/MIN ed CRISTIANO) 14:48 Sodium 25-2 138 136-145 complet SerPl-s 013 mmoL/L ed Cnc 14:48 Potassi 25-2 4.0 3.5-5.1 complet um 013 mmoL/L ed SerPl-s 14:48 Cnc Chlorid 10-12-2 101 98-107 complet e 013 mmoL/L ed SerPl-s 14:48 Cnc CO2 25-2 29 21.0-32 complet SerPl-s 013 mmoL/L .0 ed Cnc 14:48 Calcium 05-25-2 8.9 8.5-10. complet 013 mg/dL 1 ed SerPl-m 14:48 Cnc Prot 05-25-2 7.3 6.4-8.2 complet SerPl-m 013 gm/dL ed Cnc 14:48 Albumin 05-25-2 3.3 3.4-5.0 complet 013 gm/dL ed SerPl-m 14:48 Cnc Globuli 25-2 4.0 1.3-3.2 complet n 013 gm/dL ed [...] complet SerPl-c 013 ed Cnc 14:48 LIPASE (05-25-2013 14:48) LIPASE 05-25-2 62 U/L 73-393 complet [...] 013 K/mm3 ed Bld 14:48 Auto Eosinop -25-2 0.2 0.0-0.4 complet hil # 013 K/mm3 ed Bld 14:48 Auto Basophi 05-25-2 0.0 0-0.2 complet ls # 013 K/MM3 ed Bld 14:48 Auto Encounters Encounter Start End Date Code Location Performer Type Date Emergency BELGICA Bravo MD (ER) 3 20:45 3 21:00 [facility] Emergency BELGICA Jc MD (ER) 3 09:07 3 12:31 [facility] Emergency BELGICA Jc MD (ER) 3 13:06 3 13:51 [facility] Emergency BELGICA Bravo MD (ER) 3 00:01 3 00:25 [facility] Emergency BELGICA Bravo MD (ER) 3 21:18 3 21:50 [facility] Emergency BELGICA Roque (ER) 3 14:52 3 17:36 [facility] Emergency BELGICA ARNTD MD (ER) 3 18:13 3 20:03 [facility]
--- OUTSIDE RECORDS SUMMARY | 2017-04-02 21:03 | External Medical Summary Rpt | CCD ---
Author Author , STACIE QUINONES Address Unknown Phone [email or web address] Care Team Providers Care Network Program Manager Name Role Phone Gomez Jc MD, Unavailable Unavailable Gomez ARNDT MD, Unavailable Unavailable MERVIN Roque MD, Unavailable Unavailable Terry Bravo MD, Unavailable Unavailable Kim Bravo MD Purpose Continuity of Care Document - 09-18-2012 through 2016 Problems Code Diagnosis DOS Provider Status V64.2 V64.2 NO 04-29-2013 [place] PROC/PATIEN [facility] T DECISION [facility] 305.1 305.1 04-11-2013 [place] TOBACCO USE [facility] DISORDER [facility] 424.0 424.0 04-11-2013 [place] 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 682.6 682.6 04-11-2013 [place] CELLULITIS [facility] V14.1 V14.1 04-11-2013 [facility]-ANTIBIOT [facility] 883.1 883.1 OPEN 03-11-2013 [place] WOUND [facility] FINGER-COMP [facility] L E906.0 E906.0 DOG 03-11-2013 [place] BITE [facility] V12.04 V12.04 03-11-2013 [place] 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 V14.8 V14.8 03-11-2013 [facility]-DRUG [facility] ALLERGY [facility] Hospital 787.03 787.03 10-12-2012 [place] VOMITING [facility] 789.01 789.01 10-12-2012 [place] ABDOMINAL [facility] PAIN, RIGHT Hospital UPPER QUADRANT 373.13 373.13 09-18-2012 [place] ABSCESS OF [facility] 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 [...] concent ration Wound culture (03-26-2017 11:00) Wound [id number] complet culture 017 1 ed 11:00 Staphyl [...] Bravo MD (ER) 3 20:45 3 21:00 [facility] Emergency BELGICA Jc MD (ER) 3 09:07 3 12:31 [facility] Emergency BELGICA Jc MD (ER) 3 13:06 3 13:51 [facility] Emergency BELGICA Bravo MD (ER) 3 00:01 3 00:25 [facility] Emergency BELGICA Bravo MD (ER) 3 21:18 3 21:50 [facility] Emergency BELGICA Roque (ER) 3 14:52 3 17:36 [facility] Emergency BELGICA ARNDT MD (ER) 3 18:13 3 20:03 [facility]
--- OUTSIDE RECORDS SUMMARY | 2017-04-02 21:04 | External Medical Summary Rpt | CCD ---
Author Author , STACIE QUINONES Address Unknown Phone [email or web address] Immunization Name Date Rout CVX Reac Dose [...]
--- OUTSIDE RECORDS SUMMARY | 2017-04-02 21:04 | External Medical Summary Rpt | CCD ---
Author Author , STACIE QUINONES Address Unknown Phone [email or web address] Immunization Name Date Rout CVX Reac Dose [...]
[2017-04-02 21:30] LABS: NEUTROPHILS 68 % (42-76)
[2017-04-02 21:45] VITALS: BP 155/62
--- OUTSIDE RECORDS SUMMARY | 2017-04-02 22:04 | External Medical Summary Rpt | CCD ---
Author Author , STACIE QUINONES Address Unknown Phone [email or web address] Care Team Providers Care [place]oshgiach Name Role Phone Gomez Jc MD, Unavailable Unavailable Gomez ARNDT MD, Unavailable Unavailable MERVIN Roque MD, Unavailable Unavailable Terry Bravo MD, Unavailable Unavailable Kim Bravo MD Purpose Continuity of Care Document - 09-18-2012 through 2016 Problems Code Diagnosis DOS Provider Status V64.2 V64.2 NO 04-29-2013 [place] PROC/PATIEN [facility] T DECISION [facility] 305.1 305.1 04-11-2013 [place] TOBACCO USE [facility] DISORDER [facility] 424.0 424.0 04-11-2013 [place] MITRAL [facility] VALVE [facility] DISORDER 682.6 682.6 04-11-2013 [place] CELLULITIS [facility] V14.1 V14.1 04-11-[address] [facility]-ANTIBIOT [facility] 883.1 883.1 OPEN 03-11-2013 [place] WOUND [facility] FINGER-COMP Hospital L E906.0 E906.0 DOG 03-11-2013 [place] BITE [facility] V12.04 V12.04 03-11-2013 [place] PERSONAL [facility] METHICILLIN RESISTANT STAPHYLOCOC CUS AUREUS V14.8 V14.8 03-11-2013 [place] HX-DRUG [facility] ALLERGY [facility] 787.03 787.03 10-12-[address] [place] [address] 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 complet or 017 mg/dL [...] SQUARE METERS Comment: If this patient is -Malian, then multiply the Comment: result by 1.210. Serum 04-02-2 = 3.5 1.3-3.2 complet globuli 017 gm/dL ed n measure ment (mass/v olume) Serum 11-13-2 = 87 74-106 complet or 017 mg/dL [...] repeated within 6 hours of initial testing. CBC w auto diff (04-02-2017) Automat = 0.1 0-0.2 complet ed 017 K/MM3 ed blood basophi l count (count/ vo Baso % = 0.4 % 0.1-2.0 complet 017 ed Automat = 0.2 0.0-0.4 complet ed 017 K/mm3 ed blood eosinop hil count Automat = 1.0 % 0.1-12. complet ed 017 0 ed blood eosinop hils/10 0 leukocy t Blood = 16.7 1.8-7.8 complet granulo 017 K/mm3 ed cytes automat ed count (numb Granulo = 74.6 37.0-80 complet cyte 017 % .0 ed percent age Blood = 47.7 37.0-47 complet hematoc 017 % .0 ed rit (volume fractio n) Blood = 16.0 12.2-16 complet hemoglo 017 g/dL .2 ed bin measure ment (mass/v olum Absolut = 4.6 0.7-4.5 complet e 017 K/mm3 ed lymphoc yte count Lymphoc = 20.4 10-50.0 complet yte 017 % ed count, blood, automat ed Mean = 31.6 27-31.2 complet corpusc 017 pg ed ular hemoglo bin (MCH) determ Automat = 33.4 31.8-35 complet ed 017 g/dl .4 ed erythro cyte mean corpusc ular h Automat = 94.5 82.2-97 complet ed 017 fl .8 ed erythro cyte mean corpusc ular v Absolut = 0.8 0.1-1.0 complet e 017 K/mm3 ed monocyt e count [place] % = 3.6 % 1.7-9.3 complet 017 ed Automat = 8.7 7.4-10. complet ed 017 fl 4 ed blood platele t mean volume ivonne Blood = 217 142-424 complet platele 017 K/mm3 ed t count Red = 5.05 4.2-5.4 complet blood 017 M/mm3 ed cell count Automat = 13.2 11.5-17 complet ed 017 % .5 ed erythro cyte distrib ution width Blood = 22.4 4.8-10. complet leukocy 017 K/MM3 8 ed amadou count (number /volume ) Differential panel, method unspecified - (04-02-2017) Blood 1+ 1+ L complet anisocy 017 ed tosis detecti on Manual = 3 % 0-3 complet blood 017 ed eosinop hils/10 0 leukocy amadou LYMPH 26 % 10-50 complet 017 ed Monocyt = 3 % 2-9 complet e % 017 ed Platele NORMAL complet t 017 NORMAL ed estimat L e Neutrop = 68 % 42-76 complet hil 017 ed count Blood = 100 complet total 017 #CELLS ed cell count Erythrocyte sedimentation rate by jovanny (04-02-2017) Erythro 11-13-2 = 8 0-20 complet cyte 017 mm/hr ed sedimen tation rate by jovanny Gram negative automated antibiotic susceptibility test (03-30-2017 [...] by minimum inhibit ory concent ration Vancomy 11-10-2 = 1 complet stanislav 017 ug/ml ed suscept 06:30 ibility test by minimum inhibit ory concent ration Wound culture (03-26-2017 11:00) Wound [id number] complet culture 017 1 ed 11:00 Staphyl ococcus epiderm idis SCT SEPI STAPHYL OCOCCUS EPIDERM IDIS L B-HCG Ur Ql (10-12-2012 14:56) B-HCG 10-12-2 NEGATIV NEG complet Ur Ql 013 E ed 14:56 URINALYSIS/COMPLETE (10-12-2012 14:56) URINE 10-12- YELLOW YELLOW complet COLOR 013 ed 14:56 URINE 10-12-2 CLEAR CLEAR complet APPEARA 013 ed NCE 14:56 URINE 10-12-2 NEGATIV NEG complet GLUCOSE 013 E ed [...] Bravo MD (ER) 3 20:45 3 21:00 [facility] Emergency BELGICA Jc MD (ER) 3 09:07 3 12:31 [facility] Emergency BELGICA Jc MD (ER) 3 13:06 3 13:51 [facility] Emergency BELGICA Bravo MD (ER) 3 00:01 3 00:25 [facility] Emergency BELGICA Bravo MD (ER) 3 21:18 3 21:50 [facility] Emergency BELGICA Roque (ER) 3 14:52 3 17:36 [facility] Emergency BELGICA ARNDT MD (ER) 3 18:13 3 20:03 [facility]
--- OUTSIDE RECORDS SUMMARY | 2017-04-02 22:04 | External Medical Summary Rpt | CCD ---
Author Author , STACIE QUINONES Address Unknown Phone [email or web address] Team Providers Care Physical Instructor Name Role Phone Gomez Jc MD, Unavailable Unavailable Gomez ARNDT MD, Unavailable Unavailable MERVIN Roque MD, Unavailable Unavailable Terry Bravo MD, Unavailable Unavailable Kim Bravo MD Purpose Continuity of Care Document - 09-18-2012 through 2016 Problems Code Diagnosis DOS Provider Status V64.2 V64.2 NO 04-29-2013 Gruetli Laager PROC/PATIEN [facility] T DECISION [facility] 305.1 305.1 04-11-2013 Gruetli Laager TOBACCO USE [facility] DISORDER [facility] 424.0 424.0 04-11-2013 Gruetli Laager MITRAL [facility] VALVE [facility] DISORDER 682.6 682.6 04-11-2013 Gruetli Laager CELLULITIS [facility] V14.1 V14.1 04-11-2013 [facility]-ANTIBIOT [facility] 883.1 883.1 OPEN 03-11-2013 Gruetli Laager WOUND [facility] FINGER-COMP Hospital L E906.0 E906.0 DOG 03-11-2013 Gruetli Laager BITE [facility] V12.04 V12.04 03-11-2013 Gruetli Laager PERSONAL [facility] METHICILLIN RESISTANT STAPHYLOCOC CUS AUREUS V14.8 V14.8 03-11-2013 Gruetli Laager HX-DRUG [facility] ALLERGY [facility] 787.03 787.03 10-12-2012 Gruetli Laager VOMITING [facility] 789.01 789.01 10-12-2012 Gruetli Laager ABDOMINAL [facility] PAIN, RIGHT Hospital UPPER QUADRANT 373.13 373.13 09-18-2012 Gruetli Laager ABSCESS OF [facility] 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 [...] e 017 K/mm3 ed monocyt e count [place] % = 3.6 % 1.7-9.3 complet 017 [...] concent ration Wound culture (03-26-2017 11:00) Wound [id number] complet culture 017 1 ed 11:00 Staphyl [...] Bravo MD (ER) 3 20:45 3 21:00 [facility] Emergency BELGICA Jc MD (ER) 3 09:07 3 12:31 [facility] Emergency BELGICA Jc MD (ER) 3 13:06 3 13:51 [facility] Emergency BELGICA Bravo MD (ER) 3 00:01 3 00:25 [facility] Emergency BELGICA Bravo MD (ER) 3 21:18 3 21:50 [facility] Emergency BELGICA Roque (ER) 3 14:52 3 17:36 [facility] Emergency BELGICA ARNDT MD (ER) 3 18:13 3 20:03 [facility]
--- OUTSIDE RECORDS SUMMARY | 2017-04-02 22:04 | External Medical Summary Rpt | CCD ---
Demographics Preferred Language Anguillan Marital Status Unknown Christianity Affiliation Unknown Race Unknown Ethnic Group Unknown Author Author , STACIE QUINONES Address Unknown Phone Immunization Unable to retrieve immunization data due to connection failure with Immunization Registry. Please try again later.
--- OUTSIDE RECORDS SUMMARY | 2017-04-02 22:04 | External Medical Summary Rpt | CCD ---
Demographics Preferred Language Nauruan Marital Status Unknown Mormon Affiliation Unknown Race Unknown Ethnic Group Unknown Author Author , STACIE QUINONES Address Unknown Phone Immunization Unable to retrieve immunization data due to connection failure with Immunization Registry. Please try again later.
[2017-04-02 23:29] VITALS: BP 155/62
[2017-04-03 03:48] VITALS: BP 100/54
[2017-04-03 06:56] LABS: HEMOGLOBIN 14.8 g/dL (12.2-16.2); LYMPH # 3.1 K/mm3 (0.7-4.5); LYMPH % 29.9 % (10-50.0)
--- NOTE | 2017-04-03 07:25 | PHARMACY CLINIC NOTE ---
Patient Demographics Patient Demographics Admission date: 04/02/17 Date: 04/03/17 Time: 0724 Allergies Coded Allergies: bacitracin (From NEOSPORIN (NAX-BTT-[id number])) (Mild, 05/03/15) neomycin (From NEOSPORIN (JGT-EBL-HYCLT)) (Mild, 05/03/15) polymyxin B (From NEOSPORIN (EEK-FOQ-KBCSF)) (Mild, 05/03/15) sulfamethoxazole (From BACTRIM) (Mild, 05/03/15) trimethoprim (From BACTRIM) (Mild, 05/03/15) HEIGHT- FT: 5 IN: 0.00 K.202 VTE General Information Labs: Laboratory Tests 04/03 0606 Hematology Hgb (12.2 - 16.2 g/dL) 14.8 Hct (37.0 - 47.0 %) 44.6 Plt Count (142 - 424 K/mm3) 196 Disclaimer The following section includes nursing documentation that has been pulled in for pharmacy review. Patient's VTE score: 1 Patient's VTE Risk: VERY LOW RISK Clinical trial participant? No VTE prophylaxis NQF 0371 VTE prophylaxis ordered? Yes Type of prophylaxis/treatment: CRISTIANO at 0724
--- NOTE | 2017-04-03 07:25 | PHARMACY CLINIC NOTE ---
Patient Demographics Patient Demographics Admission date: 04/02/17 Date: 04/03/17 Time: 0724 Allergies Coded Allergies: bacitracin (From NEOSPORIN (DZG-IBS-BALYL)) (Mild, 05/03/15) neomycin (From NEOSPORIN (FMX-ZRD-BLJOV)) (Mild, 05/03/15) polymyxin B (From NEOSPORIN (PPB-AHJ-HURCX)) (Mild, 05/03/15) sulfamethoxazole (From BACTRIM) (Mild, 05/03/15) trimethoprim (From BACTRIM) (Mild, 05/03/15) HEIGHT- FT: 5 IN: 0.00 K.202 VTE General Information Labs: Laboratory Tests 04/03 0606 Hematology Hgb (12.2 - 16.2 g/dL) 14.8 Hct (37.0 - 47.0 %) 44.6 Plt Count (142 - 424 K/mm3) 196 Disclaimer The following section includes nursing documentation that has been pulled in for pharmacy review. Patient's VTE score: 1 Patient's VTE Risk: VERY LOW RISK Clinical trial participant? No VTE prophylaxis NQF 0371 VTE prophylaxis ordered? Yes Type of prophylaxis/treatment: CRISTIANO at 0724
--- NOTE | 2017-04-03 07:55 | HISTORY AND PHYSICAL REPORT ---
See Addendum Demographics: Admit date: 04/03/17 Chief complaint: groin pain PRIMARY DIAGNOSIS: CELLULITITIS Allergies: Coded Allergies: bacitracin (From NEOSPORIN (LWV-ZHE-EYSCO)) (Mild, 05/03/15) neomycin (From NEOSPORIN (SPC-ZAV-JIPDJ)) (Mild, 05/03/15) polymyxin B (From NEOSPORIN (PTE-KWQ-NGLMC)) (Mild, 05/03/15) sulfamethoxazole (From BACTRIM) (Mild, 05/03/15) trimethoprim (From BACTRIM) (Mild, 05/03/15) History of present illness: History of present illness: this wf who has persistant infection to groin and back and failed op treatment as she was seen by pcp x2 and ed x1 with correct abx but continued to have pain and fever and felt ill -f with cellulitis to lt thigh and groin which has i/d x 2 and seen in pcp x2 and ed x 1 and despite op abx has progressive sx with fever and more reddness and pain and presents to ed for eval Past medical history: Family HX Diabetes Yes CAD Yes Hypertension Yes Hyperlipidemia Yes Cancer Yes TB No Immunization HX DT/Tetanus 5-10 Years Ago Flu Refused Pneumonia Never Had TB Test in last year No General CAD? No Angina: No [place]: No Hypertension? No Hyperlipidemia? No CHF? No DVT? No PE? No COPD? No Asthma? No Anemia? No GERD? No Gastric ulcers? No GI Bleed? No Hernia? No Thyroid Problems? No Hypothyroidism? No CVA? No Seizures? No Diabetes? No Renal Insuffiency? No UTI? Yes Stones? No BPH? No GB Disease: Yes Nephritic Syndrome? No Asplenia? No Hepatitis? No Sickle Cell Disease? No Arthritis? No Migraines? No Cataracts? No Glaucoma? No MRSA? Yes HIV? No TB? No Anxiety? No Depression? No Cancer? No More? Yes Additional hx: ovarian cyst and endometriosis Past Surgical HX Previous Surgery?Y Tonsils L ARM BARTHOLIN CYST ORAL SURGERY-WISDOM TEETH OVARIAN CYST-X 2 LANCED RT BREAST LESION COLONOSCOPY LEFT LEG ABSCESS LEFT LEG SWEAT GLANDS LEG SWEAT GLAND REMOVAL L GROIN ABCESS RIGHT LEG SWEAT GLAND-RE MOVAL GROIN ABCESS DRAINED X3 LAP GOGO, I&D X3 IN P3MO Current home meds: Reported Medications Dextroamphetamine/Amphetamine (Adderall 20 MG Tablet) 20 MG PO BID Social Hx: Smoking HX Tobacco Yes Type Cigarettes Packs/day 1 1/2 - 2 PACKS Are you/the child exposed to second-hand smoke: Yes Alcohol Alcohol: Yes How much do you drink ONCE A MONTH For how long 2-5 Years When was your last drink Greater Than 72 Hours Ago Hx of Drug Use Drug Use? No Patien't marital status is Patient's support system is good Review of systems: Constitutional see HPI, fever. Eyes No: drainage. Ears, Nose, Mouth, Throat No ear pain, No epistaxis, No throat pain Respiratory No: cough. Cardiovascular No chest pain, No syncope Gastrointestinal/Abdominal nausea, poor appetite, poor fluid intake, No vomiting Genitourinary No: dysuria, frequency, hesitancy, hematuria. Musculoskeletal No: back pain, joint pain, joint swelling, neck pain. Skin see HPI, rash. Neurological No: headache, seizure disorder. Psychiatric No: depressed. 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 Cellulitis of groin, left 2. Tobacco abuse Plan: will admit with iv abx at 0856
--- NOTE | 2017-04-03 07:55 | HISTORY AND PHYSICAL REPORT ---
See Addendum Demographics: Admit date: 04/03/17 Chief complaint: groin pain PRIMARY DIAGNOSIS: CELLULITITIS Allergies: Coded Allergies: bacitracin (From NEOSPORIN (AIR-PSD-GVZKN)) (Mild, 05/03/15) neomycin (From NEOSPORIN (RHP-WHK-XEBIR)) (Mild, 05/03/15) polymyxin B (From NEOSPORIN (WXO-EVV-JXDGT)) (Mild, 05/03/15) sulfamethoxazole (From BACTRIM) (Mild, 05/03/15) trimethoprim (From BACTRIM) (Mild, 05/03/15) History of present illness: History of present illness: this wf who has persistant infection to groin and back and failed op treatment as she was seen by pcp x2 and ed x1 with correct abx but continued to have pain and fever and felt ill -f with cellulitis to lt thigh and groin which has i/d x 2 and seen in pcp x2 and ed x 1 and despite op abx has progressive sx with fever and more reddness and pain and presents to ed for eval Past medical history: Family HX Diabetes Yes CAD Yes Hypertension Yes Hyperlipidemia Yes Cancer Yes TB No Immunization HX DT/Tetanus 5-10 Years Ago Flu Refused Pneumonia Never Had TB Test in last year No General CAD? No Angina: No [place]: No Hypertension? No Hyperlipidemia? No CHF? No DVT? No PE? No COPD? No Asthma? No Anemia? No GERD? No Gastric ulcers? No GI Bleed? No Hernia? No Thyroid Problems? No Hypothyroidism? No CVA? No Seizures? No Diabetes? No Renal Insuffiency? No UTI? Yes Stones? No BPH? No GB Disease: Yes Nephritic Syndrome? No Asplenia? No Hepatitis? No Sickle Cell Disease? No Arthritis? No Migraines? No Cataracts? No Glaucoma? No MRSA? Yes HIV? No TB? No Anxiety? No Depression? No Cancer? No More? Yes Additional hx: ovarian cyst and endometriosis Past Surgical HX Previous Surgery?Y Tonsils L ARM BARTHOLIN CYST ORAL SURGERY-WISDOM TEETH OVARIAN CYST-X 2 LANCED RT BREAST LESION COLONOSCOPY LEFT LEG ABSCESS LEFT LEG SWEAT GLANDS LEG SWEAT GLAND REMOVAL L GROIN ABCESS RIGHT LEG SWEAT GLAND-RE MOVAL GROIN ABCESS DRAINED X3 LAP GOGO, I&D X3 IN P3MO Current home meds: Reported Medications Dextroamphetamine/Amphetamine (Adderall 20 MG Tablet) 20 MG PO BID Social Hx: Smoking HX Tobacco Yes Type Cigarettes Packs/day 1 1/2 - 2 PACKS Are you/the child exposed to second-hand smoke: Yes Alcohol Alcohol: Yes How much do you drink ONCE A MONTH For how long 2-5 Years When was your last drink Greater Than 72 Hours Ago Hx of Drug Use Drug Use? No Patien't marital status is Patient's support system is good Review of systems: Constitutional see HPI, fever. Eyes No: drainage. Ears, Nose, Mouth, Throat No ear pain, No epistaxis, No throat pain Respiratory No: cough. Cardiovascular No chest pain, No syncope Gastrointestinal/Abdominal nausea, poor appetite, poor fluid intake, No vomiting Genitourinary No: dysuria, frequency, hesitancy, hematuria. Musculoskeletal No: back pain, joint pain, joint swelling, neck pain. Skin see HPI, rash. Neurological No: headache, seizure disorder. Psychiatric No: depressed. 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 Cellulitis of groin, left 2. Tobacco abuse Plan: will admit with iv abx at 0856
[2017-04-03 08:30] VITALS: BP 97/57
--- NOTE | 2017-04-03 09:28 | CONSULT NOTE ---
Pharmacokinetic Consult Date of consult: 04/03/17 Time of consult: 922 Referring provider: DR. MILAN Reason for consult: VANCOMYCIN DOSING Allergies: Coded Allergies: bacitracin (From NEOSPORIN (KUE-GFT-IXBDS)) (Mild, 05/03/15) neomycin (From NEOSPORIN (GNC-UET-VKRZP)) (Mild, 05/03/15) polymyxin B (From NEOSPORIN (ZSU-JMK-VESOK)) (Mild, 05/03/15) sulfamethoxazole (From BACTRIM) (Mild, 05/03/15) trimethoprim (From BACTRIM) (Mild, 05/03/15) Home Medications: Reported Medications Dextroamphetamine/Amphetamine (Adderall 20 MG Tablet) 20 MG PO BID Height (feet): 5 Height (inches): 0.00 Medical History: CAD? No Angina: No [place]: No Hypertension? No Hyperlipidemia? No CHF? No DVT? No PE? No COPD? No Asthma? No Anemia? No GERD? No Gastric ulcers? No GI Bleed? No Hernia? No Thyroid Problems? No Hypothyroidism? No CVA? No Seizures? No Diabetes? No Renal Insuffiency? No UTI? Yes Stones? No BPH? No GB Disease: Yes Nephritic Syndrome? No Asplenia? No Hepatitis? No Sickle Cell Disease? No Arthritis? No Migraines? No Cataracts? No Glaucoma? No MRSA? Yes HIV? No TB? No Anxiety? No Depression? No Cancer? No More? Yes Additional hx: ovarian cyst and endometriosis Labs: Laboratory Tests 04/03/17 0606: Sodium 141, Potassium 3.7, Chloride 108 H, Carbon Dioxide 26, BUN 10, Creatinine 0.7, Estimated Creat Clear 110, Estimated GFR (MDRD) 100, Glucose 97, Calcium 8.0 L, WBC 10.4, RBC 4.63, Hgb 14.8, Hct 44.6, MCV 96.4, RDW 13.3, Plt Count 196, MPV 9.1, Gran % 60.8, Gran # 6.4, Lymphocytes % 29.9, Monocytes % 5.5 , Eosinophils % 3.2, Basophils % 0.5, Lymphocytes # 3.1, Monocytes # 0.6, Eosinophils # 0.3, Basophils # 0.1, PUBS MCHC 33.0, MCH 31.9 H Plan: BASED ON PATIENT'S FACTORS, RECOMMEND STARTING WITH VANCOMYCIN 1000 MG Q12H AT THIS TIME. PHARMACY WILL FOLLOW DAILY AND ADJUST APPROPRIATE. LES DIAZ PHARMD at 3341
--- NOTE | 2017-04-03 09:28 | CONSULT NOTE ---
Pharmacokinetic Consult Date of consult: 04/03/17 Time of consult: 922 Referring provider: DR. MILAN Reason for consult: VANCOMYCIN DOSING Allergies: Coded Allergies: bacitracin (From NEOSPORIN (WZJ-QQY-EVFGS)) (Mild, 05/03/15) neomycin (From NEOSPORIN (OKL-JJO-OXBCD)) (Mild, 05/03/15) polymyxin B (From NEOSPORIN (OCH-AZF-PEPKV)) (Mild, 05/03/15) sulfamethoxazole (From BACTRIM) (Mild, 05/03/15) trimethoprim (From BACTRIM) (Mild, 05/03/15) Home Medications: Reported Medications Dextroamphetamine/Amphetamine (Adderall 20 MG Tablet) 20 MG PO BID Height (feet): 5 Height (inches): 0.00 Medical History: CAD? No Angina: No [place]: No Hypertension? No Hyperlipidemia? No CHF? No DVT? No PE? No COPD? No Asthma? No Anemia? No GERD? No Gastric ulcers? No GI Bleed? No Hernia? No Thyroid Problems? No Hypothyroidism? No CVA? No Seizures? No Diabetes? No Renal Insuffiency? No UTI? Yes Stones? No BPH? No GB Disease: Yes Nephritic Syndrome? No Asplenia? No Hepatitis? No Sickle Cell Disease? No Arthritis? No Migraines? No Cataracts? No Glaucoma? No MRSA? Yes HIV? No TB? No Anxiety? No Depression? No Cancer? No More? Yes Additional hx: ovarian cyst and endometriosis Labs: Laboratory Tests 04/03/17 0606: Sodium 141, Potassium 3.7, Chloride 108 H, Carbon Dioxide 26, BUN 10, Creatinine 0.7, Estimated Creat Clear 110, Estimated GFR (MDRD) 100, Glucose 97, Calcium 8.0 L, WBC 10.4, RBC 4.63, Hgb 14.8, Hct 44.6, MCV 96.4, RDW 13.3, Plt Count 196, MPV 9.1, Gran % 60.8, Gran # 6.4, Lymphocytes % 29.9, Monocytes % 5.5 , Eosinophils % 3.2, Basophils % 0.5, Lymphocytes # 3.1, Monocytes # 0.6, Eosinophils # 0.3, Basophils # 0.1, PUBS MCHC 33.0, MCH 31.9 H Plan: BASED ON PATIENT'S FACTORS, RECOMMEND STARTING WITH VANCOMYCIN 1000 MG Q12H AT THIS TIME. PHARMACY WILL FOLLOW DAILY AND ADJUST APPROPRIATE. LES DIAZ PHARMD at 3064
[2017-04-03 15:50] VITALS: BP 105/47
[2017-04-03 19:32] VITALS: BP 121/74
[2017-04-03 19:42] VITALS: BP 121/74
[2017-04-04 04:30] VITALS: BP 104/61
[2017-04-04 07:56] VITALS: BP 104/61
[2017-04-04 08:00] VITALS: BP 117/63
--- NOTE | 2017-04-04 08:59 | ACUTE CARE PROGRESS NOTE (QUA) ---
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 Cellulitis of groin, left 2. Tobacco abuse Patient condition Improving Plan: make medication changes This inpt stay is expected to cross 2 MNs from start of care Yes Comments: pt was unable to tolerate iv vancomycin sec to prob allergic reaction despite rate changes and benadryl and no other abx will cover bacteria and failed op rx at 0809
--- NOTE | 2017-04-04 08:59 | ACUTE CARE PROGRESS NOTE (QUA) ---
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 Cellulitis of groin, left 2. Tobacco abuse Patient condition Improving Plan: make medication changes This inpt stay is expected to cross 2 MNs from start of care Yes Comments: pt was unable to tolerate iv vancomycin sec to prob allergic reaction despite rate changes and benadryl and no other abx will cover bacteria and failed op rx at 0884
--- NOTE | 2017-04-04 09:04 | DISCHARGE SUMMARY STANDARD ---
Demographics Admit date: 04/03/17 Discharge date: 04/04/17 History of present illness History of present illness this wf who has persistant infection to groin and back and failed op treatment as she was seen by pcp x2 and ed x1 with correct abx but continued to have pain and fever and felt ill -f with cellulitis to lt thigh and groin which has i/d x 2 and seen in pcp x2 and ed x 1 and despite op abx has progressive sx with fever and more reddness and pain and presents to ed for eval Hospital Course Hospital Course: pt did better on iv abx but was unable to tolerate iv vancomycin and because of failed op meds and limited abx as per c/s will effect cellulitis agent will need pic line and op abx x 7 days Discharge diagnoses Problem List 1. Cellulitis of groin, left 2. Tobacco abuse Medications Medications: Discharge meds are as noted. Follow up Follow up in office in: 7 DAYS with: Tolu Bravo MD Comment: will follow as op and will give a few days of pain meds at 0904
--- NOTE | 2017-04-04 10:30 | RADIOLOGY REPORT PS360 ---
CHEST PORTABLE-PICC PLACEMENT HISTORY: PICC PLACEMENT Patient Age: 26 years: Female Ordering Physician: Tlou Bravo MD TECHNIQUE: AP chest portable COMPARISON : PA and lateral chest 02/23/2017 FINDINGS PICC line enters from the left arm transverse and left subclavian with tip at the SVC just superior to the right atrium.. Satisfactory position. The lungs are clear with no active disease. Kaia and mediastinal structures satisfactory. The heart size is accentuated on today's AP portable study; heart size larger compared to the previous study from last month. Borderline cardiomegaly on this AP film, but I suspect this appearance is merely due to the AP projection portable technique along with With less optimal inspiration today.. Chest wall unremarkable. Relative hypoplastic left first rib versus right rib incidentally. Unchanged IMPRESSION: PICC line satisfactory position, entering from left Lungs clear no active disease. Heart upper normal size
[2017-04-04 10:52] VITALS: BP 117/63
== END 2017-04-04 12:00 | disposition home or self-care (01) | DRG 603 ==
LOC: ER 20:05 → 2ND 20:59 → ER 20:59 → 2ND 21:33 → ER 22:00 → 2ND 04-04 12:00
PROVIDERS: Emergency Medicine
DX: L03.314 Cellulitis of groin (principal); Z72.0 Tobacco use
CPT/HCPCS: C1751; J0878; J2405; J3370

== ENCOUNTER 2017-04-05 15:15 | Outpatient (CLI) | payer MEDICAID ==
[~2017-04-05] VITALS: Ht 152.4 cm; Wt 54.4 kg
[2017-04-05 14:23] VITALS: BP 120/67
[2017-04-05 15:51] VITALS: BP 106/73
== END 2017-04-05 15:53 | disposition home or self-care (01) ==
LOC: COP 15:15
DX: L03.314 Cellulitis of groin (principal)
CPT/HCPCS: J0878

== ENCOUNTER 2017-04-06 15:00 | Outpatient (CLI) | payer MEDICAID ==
[2017-04-06 15:15] VITALS: BP 115/70
[2017-04-06 15:55] VITALS: BP 122/70
== END 2017-04-06 16:00 | disposition home or self-care (01) ==
LOC: COP 15:00
DX: L03.314 Cellulitis of groin (principal)
CPT/HCPCS: J0878

== ENCOUNTER 2017-04-08 20:03 | Emergency (ER) | payer MEDICAID ==
[~2017-04-08] VITALS: Ht 152.4 cm; Wt 56.7 kg
[~2017-04-08 20:03] MED LIST changes: -OXYCODONE AND A1 TA4 PO
--- OUTSIDE RECORDS SUMMARY | 2017-04-08 20:31 | External Medical Summary Rpt | CCD ---
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 alkalin e phospha tase ivonne Serum = 3.7 3.4-5.0 complet or 017 gm/dL ed plasma albumin measure ment (mas Erythrocyte sedimentation rate by jovanny (04-02-2017) Erythro = 8 0-20 complet cyte 017 mm/hr ed sedimen tation rate by jovanny Differential panel, method unspecified - (04-02-2017) Blood = 100 complet total 017 #CELLS ed cell count Neutrop = 68 % 42-76 complet hil 017 ed count Platele NORMAL complet t 017 NORMAL ed estimat L e Monocyt = 3 % 2-9 complet e % 017 ed LYMPH 26 % 10-50 complet 017 ed Manual = 3 % 0-3 complet blood 017 ed eosinop hils/10 0 leukocy amadou Blood 1+ 1+ L complet anisocy 017 ed tosis detecti on CBC w auto diff (04-02-2017) Blood = 22.4 4.8-10. complet leukocy 017 K/MM3 8 ed amadou count (number /volume ) Automat = 13.2 11.5-17 complet ed 017 % .5 ed erythro cyte distrib ution width Red = 5.05 4.2-5.4 complet blood 017 M/mm3 ed cell count Blood = 217 142-424 complet platele 017 K/mm3 ed t count Automat = 8.7 7.4-10. complet ed 017 fl 4 ed blood platele t mean volume ivonne [place] % = 3.6 % 1.7-9.3 complet 017 ed Absolut = 0.8 0.1-1.0 complet e 017 K/mm3 ed monocyt e count Automat = 94.5 82.2-97 complet ed 017 fl .8 ed erythro cyte mean corpusc ular v Automat = 33.4 31.8-35 complet ed 017 g/dl .4 ed erythro cyte mean corpusc ular h Mean = 31.6 27-31.2 complet corpusc 017 pg ed ular hemoglo bin (MCH) determ Lymphoc = 20.4 10-50.0 complet yte 017 % ed count, blood, automat ed Absolut = 4.6 0.7-4.5 complet e 017 K/mm3 ed lymphoc yte count Blood = 16.0 12.2-16 complet hemoglo 017 g/dL .2 ed bin measure ment (mass/v olum Blood = 47.7 37.0-47 complet hematoc 017 % .0 ed rit (volume fractio n) Granulo = 74.6 37.0-80 complet cyte 017 % .0 ed percent age Blood = 16.7 1.8-7.8 complet granulo 017 K/mm3 ed cytes automat ed count (numb Automat = 1.0 % 0.1-12. complet ed 017 0 ed blood eosinop hils/10 0 leukocy t Automat = 0.2 0.0-0.4 complet ed 017 K/mm3 ed blood eosinop hil count Baso % = 0.4 % 0.1-2.0 complet 017 ed Automat = 0.1 0-0.2 complet ed 017 K/MM3 ed blood basophi l count (count/ vo Gram negative automated antibiotic susceptibility test (03-30-2017 06:30) Vancomy -10-2 = 1 complet stanislav 017 ug/ml ed suscept 06:30 ibility test by minimum inhibit ory concent ration Tetracy 10-2 = 2 complet miller 017 ug/ml ed [...] concent ration Wound culture (03-26-2017 11:00) Wound [id number] complet culture 017 1 ed 11:00 Staphyl [...] 013 mmoL/L ed SerPl-s 14:48 Cnc CO2 -25-2 29 21.0-32 complet SerPl-s 013 mmoL/L .0 ed Cnc 14:48 Calcium 05-25-2 8.9 8.5-10. complet 013 mg/dL 1 ed SerPl-m 14:48 Cnc Prot -25-2 7.3 6.4-8.2 complet SerPl-m 013 gm/dL ed Cnc 14:48 Albumin 05-25-2 3.3 3.4-5.0 complet 013 gm/dL ed SerPl-m 14:48 Cnc Globuli -25-2 4.0 1.3-3.2 complet n 013 gm/dL ed Ser-mCn 14:48 c Albumin -25-2 0.8 UNK 1.1-1.8 complet /Glob 013 ed SerPl-m 14:48 Rto Bilirub -25-2 0.2 0.2-1.0 complet 013 mg/dL ed SerPl-m [...] Procedures Procedure DOS [place] 8604 ANAUW PEREZ [facility]ISION 0 [facility] W/DRAINAG INC INC E SKIN&SUBC UTANEOUS TISSUE OTH LOC 863 ANA ANA EXC/DESTR 9 [facility] UC INC INC LES/TISSU E SKN&SUBCU T TISSUE ESOPHAGOG 4516 ANA PEREZ ASTRODUOD 8 [facility] ENOSCOPY [place] 8604 ANA ANA INCISION 8 [facility] W/DRAINAG INC INC E SKIN&SUBC UTANEOUS TISSUE Encounters Encounter Start End Date Code Location Performer Type Date [facility] ANA - 7 7 [facility] - [facility] 7 7 [facility] - 7 7 [facility] ANA - 7 7 [facility] ANA [facility] 7 7 [facility] ANA - 7 7 [facility] - 7 7 [facility] ANA [facility] 7 7 [facility] - [facility] 6 [facility] A[facility] 6 6 [facility] - 6 6 [facility] 6 [facility] - [facility] ANA - 4 4 [facility] ANA - 4 4 [facility] ANA - 4 4 [facility] ANA - 4 4 [facility] ANA - 4 4 [facility] ANA - 4 4 [facility] ANA - 4 4 [facility] ANA - 3 3 [facility] ANA [facility] 3 3 [facility] ANA - 3 3 [facility] ANA [facility] 3 3 [facility] ANA - 3 3 [facility] Emergency BELGICA Bravo MD (ER[facility] 3 20[facility]45 3 21:00 [facility] ANA - 3 3 [facility] ANA - 3 3 [facility] ANA [facility] 3 3 [facility] ANA [facility] 3 3 [facility] ANA [facility] 3 3 [facility] ANA [facility] 3 3 [facility] ANA [facility] 3 3 [facility] ANA - 3 3 [facility] Emergency BELGICA Jc MD (ER) 3 09:07 3 12:31 [facility] Emergency BELGICA Jc MD (ER) 3 13:06 3 13:51 [facility] Emergency BELGICA Bravo MD (ER) 3 00:01 3 00:25 [facility] ANA - 3 3 [facility] Emergency BELGICA Bravo MD (ER) 3 21:18 3 21:50 [facility] Emergency BELGICA Roque (ER) 3 14:52 3 17:36 [facility] ANA - 3 3 [facility] Emergency BELGICA ARNDT MD (ER) 3 18:13 3 20:03 [facility] ANA - 3 3 [facility] ANA - 3 3 [facility] ANA - 2 2 [facility] ANA [facility] 2 2 [facility] ANA - 2 2 [facility] ANA - 2 2 [facility] - 2 2 [facility] ANA - 2 2 [facility] ANA - 2 2 [facility] ANA [facility] 2 2 [facility] ANA - 0 0 [facility] ANA - 0 0 [facility] ANA [facility] 0 0 [facility] UNIVERSIT - 9 9 [facility] ANA - 9 9 [facility] ANA [facility] 9 9 [facility] ANA - 9 9 [facility] ANA [facility] 9 9 [facility] ANA - 8 8 [facility] ANA - 8 8 [facility]NA [facility] 8 8 [facility] - 8 8 [facility] - 8 8 [facility] - 8 8 [facility] 8 8 [facility]
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
--- NOTE | 2017-04-08 20:34 | Emergency Room Report ---
History of Present Illness Time Seen by 2014 Presenting Problem in Triage Pt arrived:Walked Presenting Problem:PT HAD SUDDEN ONSET OF RLQ , PT THEN STARTED HAVING VAG. BLEEDING ,VAGINAL BLOOD MIXED WITH YELLOW MUCOUS . PT IS CHANGING PADS EVERY 1.5 HR . 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 N Clinical Suspician of Infection? N Mental Status: 1 - Regular (Normal Baseline) Sepsis Risk:Possible Sepsis Risk Have you (or family members/close friends) recently traveled outside the [place]? N If Yes, where/when: Have you had exposure to infectious disease within the past month? N TB? Other? Specify: Source patient, RN notes reviewed, family, old records Exam Limitations no limitations Comment pt with pelvic pain assoc with dub Cardiac Chest Pain Chest pain indicative of cardiac No Timing/Duration this evening Severity moderate ALLERGIES Coded Allergies: bacitracin (From NEOSPORIN ([id number])) (Mild, 05/03/15) neomycin (From NEOSPORIN ([id number])) (Mild, 05/03/15) polymyxin B (From NEOSPORIN ([id number])) (Mild, 05/03/15) sulfamethoxazole (From BACTRIM) (Mild, 05/03/15) trimethoprim (From BACTRIM) (Mild, 05/03/15) Home Medications Reported Medications Dextroamphetamine/Amphetamine (Adderall 20 MG Tablet) 20 MG PO BID History Medical History General CAD? No Angina: No [place]: No Hypertension? No Hyperlipidemia? No CHF? No DVT? No PE? No COPD? No Asthma? No Anemia? No GERD? No Gastric ulcers? No GI Bleed? No Hernia? No Thyroid Problems? No Hypothyroidism? No CVA? No Seizures? No Diabetes? No Renal Insuffiency? No End Stage Renal Disease? No UTI? Yes Stones? No BPH? No GB Disease: Yes Nephritic Syndrome? No Asplenia? No Hepatitis? No Sickle Cell Disease? No Arthritis? No Migraines? No Cataracts? No Glaucoma? No MRSA? Yes HIV? No TB? No Anxiety? No Depression? No Cancer? No More? 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 Respiratory denies cough, denies shortness of breath, denies wheezing Cardiovascular denies chest pain, denies palpitations, denies syncope Gastrointestinal denies abdominal pain, denies diarrhea, denies vomiting Genitourinary denies: dysuria, frequency, hesitancy, hematuria. Musculoskeletal denies back pain, denies joint pain, denies joint swelling, denies neck pain Skin denies rash Psychiatric/Neurological denies headache, denies seizure Physical Exam Vital Signs Vital Signs Date Time Temp Pulse Resp B/P Pulse O2 O2 Flow FiO2 Ox Delivery Rate 04/08 2132 85 20 118/90 99 04/08 2010 98.3 98 20 133/88 99 - WBC >12,000 or <4,000 or 10% bands? 2 or more SIRS Criteria Met? B/P:118/90 MAP:103 Creatinine >2.0? UA output<0.5ml/kg/hr for 2 hrs? Platelet count >100,000? Lactate >2.0mmol/1? INR >1.2 or PTT > than 60 sec? Evidence of Organ Dysfunction? Provider documented clinical suspician of infection? N Sepsis Criteria Count: 2 Sepsis Risk: Possible Sepsis Risk General Appearance no apparent distress Eye Exam - bilateral eye PERRL, bilateral eye EOMI Ear, Nose, Throat normal ENT inspection Neck supple Respiratory Status No: respiratory distress. 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 No Results/Orders Laboratory Tests 04/08/172027: Sodium 145, Potassium 3.8, Chloride 108 H, Carbon Dioxide 25, BUN 13, Creatinine 0.8, Estimated Creat Clear 94, Estimated GFR (MDRD) 85, Glucose 95, Calcium 9.3, Total Bilirubin 0.3, AST 15, ALT 34, Alkaline Phosphatase 107, Total Protein 7.7, Albumin 3.9, Globulin 3.8 H, Albumin/Globulin Ratio 1.0 L, WBC 10.5, RBC 4.89, Hgb 15.4, Hct 46.2, MCV 94.5, RDW 13.4, Plt Count 241, MPV 9.0, Gran % 54.9, Gran # 5.8, Lymphocytes % 35.7, Monocytes % 4.8, Eosinophils % 3.7, Basophils % 0.9, Lymphocytes # 3.7, Monocytes # 0.5, Eosinophils # 0.4, Basophils # 0.1, PUBS MCHC 33.2, MCH 31.4 H 04/08/172004: Urine Color YELLOW, Urine Appearance CLEAR, Urine pH 6.0, Ur Specific [place] 1.020, Urine Protein NEGATIVE, Urine Ketones NEGATIVE, Urine Blood 3+ H, Urine Nitrate NEGATIVE, Urine Bilirubin NEGATIVE, Urine Urobilinogen 0.2, Ur Leukocyte Esterase NEGATIVE, Urine RBC 20-50, Ur Squamous Epith Cells 5-10, Urine Glucose NEGATIVE Current Medication Orders Sig/Matthias Start time Last Medication Dose Route Stop Time Status Admin Sodium Chloride 1,000 ML .Q1H1M 04/08 2045 DC 04/08 IV 04/08 Sodium Chloride 10 ML PRN PRN 04/08 2045 AC IV 04/09 2034 Sodium Chloride 1,000 ML .STK-MED ONE 04/08 2037 DC IV Orders Procedure Date/time Status DIET-NOTHING BY MOUTH 04/[address] ABD/PELVIS REQ 04/08 2024 Active CBC WITH AUTO DIFF 04/08 2024 Complete CHEM 12 PROFILE 04/08 2024 Complete URINE 04/08 2021 Complete URINALYSIS/COMPLETE 04/08 2011 Complete XRAY/CT/US XRAY/CT/US CT abdomen, pelvis CT interpretation by discussed w/radiologist Time results known: 2154 CT Results abnormal (see report) Departure Departure Time of Disposition 2154 Disposition DC Home or Self Care(routine) Clinical Impression Primary Impression: DUB (dysfunctional uterine bleeding) Secondary Impressions: Pelvic pain Condition STABLE Referrals Lawrence SMART,Tolu Velázquez (Family) discussed with dr moore Patient Instructions DI for Pelvic Pain Additional Instructions call [facility] office in am to make appt and use meds as directed Discharge Counseling Counseled pt/family regarding diagnosis, test results, medications/RX, follow up needs Prescriptions Current Visit Scripts HYDROCODONE/ACETAMINOPHEN ([place] 7.5-325 Tablet) 1 TAB PO Q6HP PRN pain #12 TAB ED Critical Care Critical Care No at 215
--- NOTE | 2017-04-08 20:34 | Emergency Room Report ---
History of Present Illness Time Seen by 2014 Presenting Problem in Triage Pt arrived:Walked Presenting Problem:PT HAD SUDDEN ONSET OF RLQ , PT THEN STARTED HAVING VAG. BLEEDING ,VAGINAL BLOOD MIXED WITH YELLOW MUCOUS . PT IS CHANGING PADS EVERY 1.5 HR . 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 N Clinical Suspician of Infection? N Mental Status: 1 - Regular (Normal Baseline) Sepsis Risk:Possible Sepsis Risk Have you (or family members/close friends) recently traveled outside the [place]? N If Yes, where/when: Have you had exposure to infectious disease within the past month? N TB? Other? Specify: Source patient, RN notes reviewed, family, old records Exam Limitations no limitations Comment pt with pelvic pain assoc with dub Cardiac Chest Pain Chest pain indicative of cardiac No Timing/Duration this evening Severity moderate ALLERGIES Coded Allergies: bacitracin (From NEOSPORIN ([id number])) (Mild, 05/03/15) neomycin (From NEOSPORIN ([id number])) (Mild, 05/03/15) polymyxin B (From NEOSPORIN ([id number])) (Mild, 05/03/15) sulfamethoxazole (From BACTRIM) (Mild, 05/03/15) trimethoprim (From BACTRIM) (Mild, 05/03/15) Home Medications Reported Medications Dextroamphetamine/Amphetamine (Adderall 20 MG Tablet) 20 MG PO BID History Medical History General CAD? No Angina: No [place]: No Hypertension? No Hyperlipidemia? No CHF? No DVT? No PE? No COPD? No Asthma? No Anemia? No GERD? No Gastric ulcers? No GI Bleed? No Hernia? No Thyroid Problems? No Hypothyroidism? No CVA? No Seizures? No Diabetes? No Renal Insuffiency? No End Stage Renal Disease? No UTI? Yes Stones? No BPH? No GB Disease: Yes Nephritic Syndrome? No Asplenia? No Hepatitis? No Sickle Cell Disease? No Arthritis? No Migraines? No Cataracts? No Glaucoma? No MRSA? Yes HIV? No TB? No Anxiety? No Depression? No Cancer? No More? 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 Respiratory denies cough, denies shortness of breath, denies wheezing Cardiovascular denies chest pain, denies palpitations, denies syncope Gastrointestinal denies abdominal pain, denies diarrhea, denies vomiting Genitourinary denies: dysuria, frequency, hesitancy, hematuria. Musculoskeletal denies back pain, denies joint pain, denies joint swelling, denies neck pain Skin denies rash Psychiatric/Neurological denies headache, denies seizure Physical Exam Vital Signs Vital Signs Date Time Temp Pulse Resp B/P Pulse O2 O2 Flow FiO2 Ox Delivery Rate 04/08 2132 85 20 118/90 99 04/08 2010 98.3 98 20 133/88 99 - WBC >12,000 or <4,000 or 10% bands? 2 or more SIRS Criteria Met? B/P:118/90 MAP:103 Creatinine >2.0? UA output<0.5ml/kg/hr for 2 hrs? Platelet count >100,000? Lactate >2.0mmol/1? INR >1.2 or PTT > than 60 sec? Evidence of Organ Dysfunction? Provider documented clinical suspician of infection? N Sepsis Criteria Count: 2 Sepsis Risk: Possible Sepsis Risk General Appearance no apparent distress Eye Exam - bilateral eye PERRL, bilateral eye EOMI Ear, Nose, Throat normal ENT inspection Neck supple Respiratory Status No: respiratory distress. 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 No Results/Orders Laboratory Tests 04/08/172027: Sodium 145, Potassium 3.8, Chloride 108 H, Carbon Dioxide 25, BUN 13, Creatinine 0.8, Estimated Creat Clear 94, Estimated GFR (MDRD) 85, Glucose 95, Calcium 9.3, Total Bilirubin 0.3, AST 15, ALT 34, Alkaline Phosphatase 107, Total Protein 7.7, Albumin 3.9, Globulin 3.8 H, Albumin/Globulin Ratio 1.0 L, WBC 10.5, RBC 4.89, Hgb 15.4, Hct 46.2, MCV 94.5, RDW 13.4, Plt Count 241, MPV 9.0, Gran % 54.9, Gran # 5.8, Lymphocytes % 35.7, Monocytes % 4.8, Eosinophils % 3.7, Basophils % 0.9, Lymphocytes # 3.7, Monocytes # 0.5, Eosinophils # 0.4, Basophils # 0.1, PUBS MCHC 33.2, MCH 31.4 H 04/08/172004: Urine Color YELLOW, Urine Appearance CLEAR, Urine pH 6.0, Ur Specific [place] 1.020, Urine Protein NEGATIVE, Urine Ketones NEGATIVE, Urine Blood 3+ H, Urine Nitrate NEGATIVE, Urine Bilirubin NEGATIVE, Urine Urobilinogen 0.2, Ur Leukocyte Esterase NEGATIVE, Urine RBC 20-50, Ur Squamous Epith Cells 5-10, Urine Glucose NEGATIVE Current Medication Orders Sig/Matthias Start time Last Medication Dose Route Stop Time Status Admin Sodium Chloride 1,000 ML .Q1H1M 04/08 2045 DC 04/08 IV 04/08 Sodium Chloride 10 ML PRN PRN 04/08 2045 AC IV 04/09 2034 Sodium Chloride 1,000 ML .STK-MED ONE 04/08 2037 DC IV Orders Procedure Date/time Status DIET-NOTHING BY MOUTH 04/[address] ABD/PELVIS REQ 04/08 2024 Active CBC WITH AUTO DIFF 04/08 2024 Complete CHEM 12 PROFILE 04/08 2024 Complete URINE 04/08 2021 Complete URINALYSIS/COMPLETE 04/08 2011 Complete XRAY/CT/US XRAY/CT/US CT abdomen, pelvis CT interpretation by discussed w/radiologist Time results known: 2154 CT Results abnormal (see report) Departure Departure Time of Disposition 2154 Disposition DC Home or Self Care(routine) Clinical Impression Primary Impression: DUB (dysfunctional uterine bleeding) Secondary Impressions: Pelvic pain Condition STABLE Referrals Lawrence SMART,Tolu Velázquez (Family) discussed with dr moore Patient Instructions DI for Pelvic Pain Additional Instructions call [facility]resa office in am to make appt and use meds as directed Discharge Counseling Counseled pt/family regarding diagnosis, test results, medications/RX, follow up needs Prescriptions Current Visit Scripts HYDROCODONE/ACETAMINOPHEN ([place] 7.5-325 Tablet) 1 TAB PO Q6HP PRN pain #12 TAB ED Critical Care Critical Care No at 2155
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
--- OUTSIDE RECORDS SUMMARY | 2017-04-08 20:36 | External Medical Summary Rpt | CCD ---
Author Author , STACIE QUINONES Address Unknown Phone [email or web address] Immunization Name Date Rout CVX Reac Dose [...]
--- OUTSIDE RECORDS SUMMARY | 2017-04-08 20:36 | External Medical Summary Rpt | CCD ---
Author Author , STACIE QUINONES Address Unknown Phone [email or web address] Immunization Name Date Rout CVX Reac Dose [...]
[2017-04-08 20:39] LABS: URINE BILIRUBIN - DIPSTICK NEGATIVE (NEG); URINE BLOOD 3+ (NEG)
[2017-04-08 20:41] LABS: HEMOGLOBIN 15.4 g/dL (12.2-16.2); LYMPH # 3.7 K/mm3 (0.7-4.5); LYMPH % 35.7 % (10-50.0)
--- NOTE | 2017-04-08 21:32 | RADIOLOGY REPORT PS360 ---
CT ABD PELVIS W/O CONTRAST Ordering Physician: Kim Bravo MD Patient Age: 26 years: Female HISTORY: RLQ PAIN right flank pain. Hematuria but with history of vaginal bleeding. TECHNIQUE: Helical CT scanning performed the abdomen and pelvis with no oral nor IV contrast utilized. COMPARISON :Previous CT abdomen pelvis 01/08/2016. & April 2014 FINDINGS Lung bases. Clear no acute findings. Heart normal size Abdomen/pelvis the lack of IV and oral contrast decreases sensitivity. Liver.. Unremarkable. No focal lesions no biliary ductal dilatation. Spleen. Unremarkable. Gallbladder. Surgically removed Pancreas. The marked on this noncontrast study no significant change . Adrenals. No significant mass. Perhaps slight low density thickened medial limb of right adrenal unchanged as prior study prior study . Suspect small underlying small nonfunctioning adenoma. Stable appearance 16 x 8 mm Scattered small nodes mesentery but no significant adenopathy here or. No significant retroperitoneal nor pelvic adenopathy TRACT. Kidneys appear normal with no calculi nor obstruction. No significant change. Ureters unremarkable. Pelvis. Bladder satisfactory with upper normal wall thickness. Uterus retroverted normal size. Moderate size left ovary measuring 3.7 cm x 2.1 cm. Right ovary at the posterior right pelvis measuring 3.5 times CM.No significant free fluid. Abdomen or pelvis No free air .. GI TRACT. Appendix normal. Small bowel normal caliber. Moderate stool throughout the colon. Small bowel. Moderate fluid proximal borderline wall thickness proximal small bowel. But no significant bowel dilatation nor obstruction... No Significant Air-fluid levels. Distal small bowel unremarkable. Terminal ileum. Appendix normal. . . Osseous structures but no significant findings IMPRESSION: . No acute findings abdomen or pelvis.. Appendix normal.. No urinary tract calculi nor obstruction. Upper normal wall thickness urinary bladder . Moderate size ovaries bilaterally. Left ovary 3.8., There is slightly larger than right ovary.. Small follicles throughout both ovaries. No significant fluid in cul-de-sac Addendum I noted the patient had recent discharge from hospital for left groin cellulitis. No significant findings inflammation is seen at the groin on today's CT
[2017-04-08] MEDS ORDERED: NORCO1 TAB PO (21:57)
[2017-04-08 22:17] VITALS: BP 118/90
== END 2017-04-08 22:35 | disposition home or self-care (01) ==
LOC: ER 20:03
PROVIDERS: Emergency Medicine
DX: N93.8 Other specified abnormal uterine and vaginal bleeding (principal); R10.2 Pelvic and perineal pain; F17.210 Nicotine dependence, cigarettes, uncomplicated; Z88.2 Allergy status to sulfonamides

== ENCOUNTER → 2017-04-08 | Outpatient (CLI) | payer MEDICAID ==
[~2017-04-08] MED LIST changes: +OXYCODONE AND A1 TA4 PO
[2017-04-08 17:15] VITALS: BP 135/72
[2017-04-08 17:40] VITALS: BP 126/73
== END ==
LOC: COP 15:00
DX: L03.314 Cellulitis of groin (principal)
CPT/HCPCS: J0878

== ENCOUNTER 2017-04-09 13:55 | Outpatient (CLI) | payer MEDICAID ==
[2017-04-09 14:05] VITALS: BP 124/64
[2017-04-09 14:25] VITALS: BP 131/67
[2017-04-09 14:50] VITALS: BP 128/62
== END 2017-04-09 15:00 | disposition home or self-care (01) ==
LOC: COP 13:55
DX: L03.314 Cellulitis of groin (principal)
CPT/HCPCS: J0878

== ENCOUNTER 2017-04-10 18:44 | Outpatient (CLI) | payer MEDICAID ==
[~2017-04-10] VITALS: Ht 152.4 cm; Wt 59.0 kg
[2017-04-10 18:45] VITALS: BP 129/80
== END 2017-04-10 19:30 | disposition home or self-care (01) ==
LOC: COP 18:44
DX: L03.314 Cellulitis of groin (principal)
CPT/HCPCS: J0878

== ENCOUNTER 2017-04-11 16:45 | Outpatient (CLI) | payer MEDICAID ==
[2017-04-11 16:50] VITALS: BP 123/62
== END 2017-04-11 18:20 | disposition home or self-care (01) ==
LOC: COP 16:45
DX: L03.314 Cellulitis of groin (principal)

== ENCOUNTER 2017-04-15 21:25 | Emergency (ER) | payer MEDICAID ==
[~2017-04-15] VITALS: Ht 152.4 cm; Wt 56.7 kg
--- OUTSIDE RECORDS SUMMARY | 2017-04-15 21:56 | External Medical Summary Rpt | CCD ---
Author Author , STACIE QUINONES Address Unknown Phone .[employer] SARL Care Team Providers Care Union Organizer Name Role Phone Gomez Jc MD, Unavailable Unavailable Gomez ARNDT MD, Unavailable Unavailable MERVIN Roque MD, Unavailable Unavailable Terry Bravo MD, Unavailable Unavailable Kim Bravo MD Purpose Continuity of Care Document - 09-18-2012 through 2016 Problems Code Diagnosis DOS Provider Status V64.2 V64.2 NO 04-29-2013 [place] PROC/PATIEN [facility] T DECISION [facility] 305.1 305.1 04-11-2013 [place] TOBACCO USE [facility] DISORDER [facility] 424.0 424.0 04-11-2013 [place] MITRAL [facility] VALVE [facility] DISORDER 682.6 682.6 04-11-2013 [place] CELLULITIS [facility] V14.1 V14.1 04-11-2013 [facility]ANT[facility] 883.1 883.1 OPEN 03-11-2013 [place] WOUND [facility] FINGER-COMP Hospital L E906.0 E906.0 DOG 03-11-2013 [place] BITE [facility] V12.04 V12.04 03-11-2013 [place] PERSONAL [facility] METHICILLIN RESISTANT STAPHYLOCOC CUS AUREUS V14.8 V14.8 03-11-2013 [place] HX-DRUG [facility] ALLERGY [facility] 787.03 787.03 10-12-2012 [place] VOMITING [facility] 789.01 789.01 10-12-2012 [place] ABDOMINAL [facility] PAIN, RIGHT Hospital UPPER QUADRANT 373.13 373.13 09-18-2012 [place] ABSCESS OF [facility] 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 K52.9 NONINFECTIV E GASTROENTER ITIS AND COLITIS, UNSPECIFIED K56.7 ILEUS, UNSPECIFIED L02.91 CUTANEOUS ABSCESS, UNSPECIFIED L03.314 CELLULITIS OF GROIN L03.90 CELLULITIS, UNSPECIFIED N93.8 OTHER SPECIFIED ABNORMAL UTERINE AND VAGINAL BLEEDING N93.9 ABNORMAL UTERINE AND VAGINAL BLEEDING, UNSPECIFIED R10.2 PELVIC AND PERINEAL PAIN R10.84 Generalized abdominal pain R55 SYNCOPE AND COLLAPSE Allergies, Adverse Reactions, Alerts Type Drug Allergy Food Allergy Adverse Reaction to Substance Substance Reaction Severity Polymyxin B Unknown Unknown Neomycin Unknown Unknown Trimethoprim Unknown Unknown Sulfamethoxazole Unknown Unknown Bacitracin Unknown Unknown Mushroom Z-XMHYNZ-ORVE/THROAT/ Severe RASH Medications Na ND Rx Da [...] Ac MG ti /2 ve ML AL [place] 00 08 0 No ED 05 -3 [...] Ml ti ve Sy ri ng e [place] 00 05 0 No OM 64 -2 [...] retati t Range on Comprehensive metabolic panel (04-08-2017 20:28) Serum = 145 136-145 complet sodium 017 mmoL/L ed measure 20:28 ment Serum = 3.8 3.5-5.1 complet potassi 017 mmoL/L ed um 20:28 measure ment Serum = 95 74-106 complet or 017 mg/dL ed plasma 20:28 glucose measure ment (mas Serum = 3.8 1.3-3.2 complet globuli 017 gm/dL ed n 20:28 measure ment (mass/v olume) Estimat = 85 59- complet ed 017 ML/MIN ed glomeru 20:28 lar filtrat ion rate (GF Comment: REFERENCE RANGE: >60 ML/MIN/1.73 SQUARE METERS Comment: If this patient is -[place], then multiply the Comment: result by 1.210. Estimat = 94 50-200 complet ion of 017 ML/MIN ed creatin 20:28 ine renal clearan ce Serum = 0.8 0.55-1. complet or 017 mg/dL 02 ed plasma 20:28 creatin ine measure ment ( Carbon = 25 21.0-32 complet dioxide 017 mmoL/L .0 ed 20:28 measure ment Serum = 108 98-107 complet or 017 mmoL/L ed plasma 20:28 chlorid e measure ment (mo Serum = 9.3 8.5-10. complet or 017 mg/dL 1 ed plasma 20:28 calcium measure ment (mas Serum = 13 7-18 complet or 017 mg/dL ed plasma 20:28 urea nitroge n measure men Serum = 0.3 0.2-1.0 complet or 017 mg/dL ed plasma 20:28 total bilirub in measure m Serum = 107 46-116 complet or 017 U/L ed plasma 20:28 alkalin e phospha tase ivonne Serum = 3.9 3.4-5.0 complet or 017 gm/dL ed plasma 20:28 albumin measure ment (mas Serum = 1.0 1.1-1.8 complet or 017 ed plasma 20:28 albumin /globul in mass ra Protein = 7.7 6.4-8.2 complet total 017 gm/dL ed ser/lisandro 20:28 s ALT = 34 12-78 complet (SGPT) 017 U/L ed ser/lisandro 20:28 s Serum = 15 15-37 complet or 017 U/L ed plasma 20:28 asparta te aminotr ansfera CBC w auto diff (04-08-2017 20:28) Blood = 10.5 4.8-10. complet leukocy 017 K/MM3 8 ed amadou 20:28 count (number /volume ) Automat = 13.4 11.5-17 complet ed 017 % .5 ed erythro 20:28 cyte distrib ution width Red = 4.89 4.2-5.4 complet blood 017 M/mm3 ed cell 20:28 count Blood = 241 142-424 complet platele 017 K/mm3 ed t count 20:28 Automat = 9.0 7.4-10. complet ed 017 fl 4 ed blood 20:28 platele t mean volume ivonne [place] % = 4.8 % 1.7-9.3 complet 017 ed 20:28 Absolut = 0.5 0.1-1.0 complet e 017 K/mm3 ed monocyt 20:28 e count Automat = 94.5 82.2-97 complet ed 017 fl .8 ed erythro 20:28 cyte mean corpusc ular v Automat = 33.2 31.8-35 complet ed 017 g/dl .4 ed erythro 20:28 cyte mean corpusc ular h Mean = 31.4 27-31.2 complet corpusc 017 pg ed ular 20:28 hemoglo bin (MCH) determ Lymphoc = 35.7 10-50.0 complet yte 017 % ed count, 20:28 blood, automat ed Absolut = 3.7 0.7-4.5 complet e 017 K/mm3 ed lymphoc 20:28 yte count Blood = 15.4 12.2-16 complet hemoglo 017 g/dL .2 ed bin 20:28 measure ment (mass/v olum Blood = 46.2 37.0-47 complet hematoc 017 % .0 ed rit 20:28 (volume fractio n) Granulo = 54.9 37.0-80 complet cyte 017 % .0 ed percent 20:28 age Blood = 5.8 1.8-7.8 complet granulo 017 K/mm3 ed cytes 20:28 automat ed count (numb Automat = 3.7 % 0.1-12. complet ed 017 0 ed blood 20:28 eosinop hils/10 0 leukocy t Automat = 0.4 0.0-0.4 complet ed 017 K/mm3 ed blood 20:28 eosinop hil count Baso % = 0.9 % 0.1-2.0 complet 017 ed 20:28 Automat = 0.1 0-0.2 complet ed 017 K/MM3 ed blood 20:28 basophi l count (count/ vo Urinalysis with microscopy (04-08-2017 20:05) Urine 0.2 0.2 NEG complet urobili 017 L ed nogen 20:05 E.U./dL detecti on by test str Squ[place]ou 5-10 0-5 complet s 017 5-10 L ed epithel 20:05 #/hpf ial cells detecti on in u Urine = 1.020 1.005-1 complet specifi 017 .030 ed c 20:05 gravity measure ment Erythro 20-50 0 complet cytes 017 20-50 L ed detecti 20:05 on in rbc/hpf urine sedimen t Urine = NEG complet protein 017 NEGATIV ed 20:05 E mg/dL measure ment by automat ed t Urine = 6.0 5.0-8.5 complet pH 017 ed 20:05 Urine NEGATIV NEG complet nitrite 017 E ed 20:05 NEGATIV detecti E L on by test strip Mucus NEGATIV NEG complet detecti 017 E ed on in 20:05 NEGATIV urine E L sedimen t by lig Urine NEGATIV NEG complet ketones 017 E ed 20:05 NEGATIV detecti E L on by mg/dL automat ed amadou Glucose = NEG complet ur 017 NEGATIV ed test 20:05 E strip Urine YELLOW YELLOW complet color 017 YELLOW ed 20:05 L Urine 3+ 3+ L NEG complet blood 017 ed detecti 20:05 on Urine NEGATIV NEG complet total 017 E ed bilirub 20:05 NEGATIV in E L detecti on by test Urine CLEAR CLEAR complet appeara 017 CLEAR L ed nce 20:05 determi [facility] Urine test (04-08-2017 20:05) Urine = NEG complet pregnan 017 NEGATIV ed cy test 20:05 E Vancomycin trough (04-04-2017 08:30) Vancomy = 1.4 10.0-20 complet stanislav 017 mcg/mL .0 ed trough 08:30 Comment: Comment: RESULTS CALLED TO PHARMACIST: ROSANGELA MARQUIS Comment: 04/04/17 1130 Zuleika Marsh Basic metabolic panel (04-03-2017 06:06) Serum 04-03- = 141 136-145 complet sodium 017 mmoL/L ed measure 06:06 ment Serum 2 = 3.7 3.5-5.1 complet potassi 017 mmoL/L ed um 06:06 measure ment Serum = 97 74-106 complet or 017 mg/dL ed plasma 06:06 glucose measure ment (mas Estimat = 100 59- complet ed 017 ML/MIN ed glomeru 06:06 lar filtrat ion rate (GF Comment: REFERENCE RANGE: >60 ML/MIN/1.73 SQUARE METERS Comment: If this patient is -[place], then multiply the Comment: result by 1.210. Estimat = 110 50-200 complet ion of 017 ML/MIN ed creatin 06:06 ine renal clearan ce Serum = 0.7 0.55-1. complet or 017 mg/dL 02 ed plasma 06:06 creatin ine measure ment ( Carbon = 26 21.0-32 complet dioxide 017 mmoL/L .0 ed 06:06 measure ment Serum = 108 98-107 complet or 017 mmoL/L ed plasma 06:06 chlorid e measure ment (mo Serum = 8.0 8.5-10. complet or 017 mg/dL [...] blood 06:06 platele t mean volume ivonne [place] % = 5.5 % 1.7-9.3 complet 017 [...] complet 017 MMOL/L ed ser/lisandro 00:20 s Comprehensive metabolic panel (04-02-2017) Serum = 3.7 3.4-5.0 complet or 017 gm/dL ed plasma albumin measure ment (mas Serum = 103 46-116 complet or 017 U/L ed plasma alkalin e phospha tase ivonne Serum = 0.2 0.2-1.0 complet or 017 mg/dL ed plasma total bilirub in measure m Serum = 9 7-18 complet or 017 mg/dL ed plasma urea nitroge n measure men Serum = 8.7 8.5-10. complet or 017 mg/dL 1 ed plasma calcium measure ment (mas Serum = 104 98-107 complet or 017 mmoL/L ed plasma chlorid e measure ment (mo Carbon = 26 21.0-32 complet dioxide 017 mmoL/L .0 ed measure ment Serum = 0.8 0.55-1. complet or 017 mg/dL 02 ed plasma creatin ine measure ment ( Estimat = 97 50-200 complet ion of 017 ML/MIN ed creatin ine renal clearan ce Estimat = 85 59- complet ed 017 ML/MIN ed glomeru lar filtrat ion rate (GF Comment: REFERENCE RANGE: >60 ML/MIN/1.73 SQUARE METERS Comment: If this patient is -[place], then multiply the Comment: result by 1.210. Serum = 3.5 1.3-3.2 complet globuli 017 gm/dL ed n measure ment (mass/v olume) Serum = 87 74-106 complet or 017 [...] e 017 K/mm3 ed monocyt e count [place] % = 3.6 % 1.7-9.3 complet 017 [...] 8 ed amadou count (number /volume ) Erythrocyte sedimentation rate by jovanny (04-02-2017) Erythro [...] complet anisocy 017 ed tosis detecti on Gram negative automated antibiotic susceptibility test (03-30-2017 06:30) Clindam --2 >= 8 complet ycin 017 ug/ml ed suscept 06:30 ibility test by minimum inhibit ory concent ration Erythro 03-30-2 >= 8 complet mycin 017 ug/ml ed suscept 06:30 ibility test by minimum inhibit ory concent ration Gentami = 8 complet stanislav 017 ug/ml ed [...] concent ration Wound culture (03-26-2017 11:00) Wound [id number] complet culture 017 1 ed 11:00 Staphyl [...] Bravo MD (ER) 3 20:45 3 21:00 [facility] BELGICA Jc MD (ER) 3 09:07 3 12:31 [facility] BELGICA Jc MD (ER) 3 13:06 3 13:51 [facility] BEL[place]ICA Bravo MD (ER) 3 00:01 3 00:25 [facility] BELGICA Bravo MD (ER) 3 21:18 3 21:50 [facility] BELGIAC Roque (ER) 3 14:52 3 17:36 [facility] BELGICA ARNDT MD (ER) 3 18:13 3 20:03 [facility]
--- OUTSIDE RECORDS SUMMARY | 2017-04-15 21:56 | External Medical Summary Rpt | CCD ---
Author Author , STACIE QUINONES Address Unknown Phone [email or web address] Immunization Name Date Rout CVX Reac Dose [...]
--- OUTSIDE RECORDS SUMMARY | 2017-04-15 21:56 | External Medical Summary Rpt | CCD ---
Author Author , STACIE QUINONES Address Unknown Phone [email or web address] Immunization Name Date Rout CVX Reac Dose [...]
--- OUTSIDE RECORDS SUMMARY | 2017-04-15 21:56 | External Medical Summary Rpt | CCD ---
Author Author , STACIE QUINONES Address Unknown Phone Care Team Providers Care Manager Latin Name Role Phone Gomez Jc MD, Unavailable Unavailable Gomez ARNDT MD, Unavailable Unavailable MERVIN Roque MD, Unavailable Unavailable Terry Bravo MD, Unavailable Unavailable Kim Bravo MD Purpose Continuity of Care Document - 09-18-2012 through 2016 Problems Code Diagnosis DOS Provider Status V64.2 V64.2 NO 04-29-2013 [place] PROC/PATIEN [facility] T DECISION [facility] 305.1 305.1 04-11-2013 [place] TOBACCO USE [facility] DISORDER [facility] 424.0 424.0 04-11-2013 [place] MITRAL [facility] VALVE [facility] DISORDER 682.6 682.6 04-11-2013 [place] CELLULITIS [facility] V14.1 V14.1 04-11-2013 [facility]-ANTIBIOT [facility] 883.1 883.1 OPEN 03-11-2013 [place] WOUND [facility] FINGER-COMP Hospital L E906.0 E906.0 DOG 03-11-2013 [place] BITE [facility] V12.04 V12.04 03-11-2013 [place] PERSONAL [facility] METHICILLIN RESISTANT STAPHYLOCOC CUS AUREUS V14.8 V14.8 03-11-2013 [place] HX-DRUG [facility] ALLERGY [facility] 787.03 787.03 10-12-2012 [place] VOMITING [facility] 789.01 789.01 10-12-2012 [place] ABDOMINAL [facility] PAIN, RIGHT Hospital UPPER QUADRANT 373.13 373.13 09-18-2012 [place] ABSCESS OF [facility] 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 WITHOUT [...] Sulfamethoxazole Unknown Unknown Bacitracin Unknown Unknown Mushroom O-HJEUXI-ZABV/THROAT/ Severe RASH Medications Na ND Rx Da [...] Ac MG ti /2 ve ML AL [place] 00 08 0 No ED 05 -3 [...] Ml ti ve Sy ri ng e [place] 00 05 0 No OM 64 -2 [...] SQUARE METERS Comment: If this patient is -Guine[place], then multiply the Comment: result by 1.210. [...] blood 20:28 platele t mean volume ivonne [place] % = 4.8 % 1.7-9.3 complet 017 [...] 017 CLEAR L ed nce 20:05 determi [facility] Urine test (04-08-2017 20:05) Urine = NEG [...] SQUARE METERS Comment: If this patient is -[place]ine[place], then multiply the Comment: result by 1.210. [...] blood 06:06 platele t mean volume ivonne [place] % = 5.5 % 1.7-9.3 complet 017 [...] SQUARE METERS Comment: If this patient is -[place]ine[place], then multiply the Comment: result by 1.210. [...] e 017 K/mm3 ed monocyt e count [place] % = 3.6 % 1.7-9.3 complet 017 [...] 4.8-10. complet leukocy 017 K/MM3 8 ed maadou count (number /volume ) Erythrocyte sedimentation rate [...] concent ration Wound culture (03-26-2017 11:00) Wound [id number] complet culture 017 1 ed 11:00 Staphyl [...] Bravo MD (ER) 3 20:45 3 21:00 [facility] BELGICA Jc MD (ER) 3 09:07 3 12:31 [facility] BELGICA Jc MD (ER) 3 13:06 3 13:51 [facility] [place] Bravo MD (ER) 3 00:01 3 00:25 [facility] BEL[place] Bravo MD (ER) 3 21:18 3 21:50 [facility] BELGICA Roque (ER) 3 14:52 3 17:36 [facility] Emergency BELGICA ARNDT MD (ER) 3 18:13 3 20:03 [facility]
[2017-04-15 22:11] LABS: HEMOGLOBIN 14.7 g/dL (12.2-16.2); LYMPH # 3.8 K/mm3 (0.7-4.5); LYMPH % 32.4 % (10-50.0)
[2017-04-15] MEDS ORDERED: MINOCYCLINE 10100 MG PO (23:37)
--- NOTE | 2017-04-15 23:38 | Emergency Room Report ---
History of Present Illness Time Seen by 048 Presenting Problem in Triage Pt arrived:Walked Presenting Problem:REPORTS RECENTLY HAD CELLULITIS WITH MRSA. HAD PICC LINE REMOVED ON SUNDAY. 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 N Clinical Suspician of Infection? N Mental Status: 1 - Regular (Normal Baseline) Sepsis Risk:Low Sepsis Risk Have you (or family members/close friends) recently traveled outside the [place]? N If Yes, where/when: Have you had exposure to infectious disease within the past month? N TB? Other? Specify: Source patient, RN notes reviewed, RN/MD Exam Limitations no limitations Comment Patient presents with a LEFT upper thigh soreness, noticed yesterday. 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 Luong. Patient had a total of 13 incision and drainage procedures performed by surgeon, advised that she has recently had her PICC line discontinued after receiving IV antibiotics. ALLERGIES Coded Allergies: bacitracin (From NEOSPORIN (KXH-DUY-LCNEH)) (Mild, 05/03/15) neomycin (From NEOSPORIN (DOD-DIX-ELEHZ)) (Mild, 05/03/15) polymyxin B (From NEOSPORIN (TVK-EHA-DOJSA)) (Mild, 05/03/15) sulfamethoxazole (From BACTRIM) (Mild, 05/03/15) trimethoprim (From BACTRIM) (Mild, 05/03/15) Home Medications Reported Medications Dextroamphetamine/Amphetamine (Adderall 20 MG Tablet) 20 MG PO BID History Medical History General CAD? No Angina: No [place]: No Hypertension? No Hyperlipidemia? No CHF? No DVT? No PE? No COPD? No Asthma? No Anemia? No GERD? No Gastric ulcers? No GI Bleed? No Hernia? No Thyroid Problems? No Hypothyroidism? No CVA? No Seizures? No Diabetes? No Renal Insuffiency? No End Stage Renal Disease? No UTI? Yes Stones? No BPH? No GB Disease: Yes Nephritic Syndrome? No Asplenia? No Hepatitis? No Sickle Cell Disease? No Arthritis? No Migraines? No Cataracts? No Glaucoma? No MRSA? Yes HIV? No TB? No Anxiety? No Depression? No Cancer? No More? 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 Ago Family History Family Hx Diabetes Yes CAD Yes Hypertension Yes Hyperlipidemia Yes Cancer Yes TB No Social History Smoking Hx Smoker: Current Every Day Smoker Tobacco: Yes Type Cigarettes Packs/day 1 1/2 - 2 Packs Alcohol Alcohol: Yes Review of Systems All Other Systems Reviewed and Negative Skin lumps (LEFT upper thigh) Physical Exam Vital Signs Vital Signs Date Time Temp Pulse Resp B/P Pulse O2 O2 Flow FiO2 Ox Delivery Rate 04/15 2356 98.7 86 18 107/70 98 04/15 2317 86 18 107/70 98 04/15 2131 98.7 102 18 126/100 99 General Appearance normal appearance, WD/WN, no apparent distress Respiratory Status Yes: trachea midline, chest symmetrical, non tender chest. No: respiratory distress. Lung Sounds bilateral: normal breath sounds, lungs clear. Cardiovascular normal exam, regular rate/rhythm, no peripheral edema, no gallop, no JVD, no murmur, no rub, normal peripheral pulses Gastrointestinal normal bowel sounds, normal exam, non tender, soft, no organomegaly Extremities non-tender, normal range of motion, normal inspection Nurse present during exam? 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 Medical Decision Making LABS/Meds/Orders Pt receiving controlled substance in ED? No Comment 2325-given the patient's multiple recurrent abscesses I have advised her to see Dr. Luong in the office in the morning for surgical evaluation of her new LEFT groin early abscess. Patient started on -3 which patient advised was previously prescribed and successfully help her other skin infections. No I&D performed in the emergency room today. Results/Orders Laboratory Tests 04/15/172199: Lactic Acid 0.8 04/15/172199: Sodium 141, Potassium 3.6, Chloride 106, Carbon Dioxide 25, BUN 18, Creatinine 0.9, Estimated Creat Clear 83, Estimated GFR (MDRD) 75, Glucose 96, Calcium 9.0, Total Bilirubin 0.2, AST 13 L, ALT 26, Alkaline Phosphatase 99, Total Protein 7.3, Albumin 4.0, Globulin 3.3 H, Albumin/Globulin Ratio 1.2, WBC 11.9 H, RBC 4.64, Hgb 14.7, Hct 43.7, MCV 94.2, RDW 13.5, Plt Count 228, MPV 9.5, Gran % 60.3, Gran # 7.2, Lymphocytes % 32.4, Monocytes % 4.4, Eosinophils % 2.2, Basophils % 0.6, Lymphocytes # 3.8, Monocytes # 0.5, Eosinophils # 0.3, Basophils # 0.1, PUBS MCHC 33.7, MCH 31.7 H Current Medication Orders Sig/Matthias Start time Last Medication Dose Route Stop Time Status Admin Doxycycline Hyclate 0 .STK-MED ONE 04/15 2352 DC PO Doxycycline Hyclate 200 MG ONCE ONE 04/15 2345 DCr 04/15 PO 04/15 2346 2352 Minocycline HCl 100 MG ONCE ONE 04/15 2345 DC PO 04/15 2346 Sodium Chloride 10 ML PRN PRN 04/15 2145 DCD IV 04/16 2140 Orders Procedure Date/time Status IV SALINE LOCK 04/15 2140 Active CULTURE, BLOOD 04/15 2140 Active LACTIC ACID 04/15 2140 Complete CBC WITH AUTO DIFF 04/15 2140 Complete CHEM 12 PROFILE 04/15 2140 Complete Departure Departure Time of Disposition 2334 Disposition DC Home or Self Care(routine) Clinical Impression Primary Impression: Abscess Condition STABLE Referrals JUANA LUONG MD: Tomorrow-Call Office Patient Instructions DI for Skin Abscess Additional Instructions Please take the antibiotic (Minocycline) prescribed as directed, follow-up with Dr. Luong in the office tomorrow for mandatory reevaluation. Discharge Counseling Counseled pt/family regarding diagnosis, medications/RX, home care, follow up needs Comment Please take the antibiotic (Minocycline) prescribed as directed, follow-up with Dr. Luong in the office tomorrow for mandatory reevaluation. Prescriptions Current Visit Scripts Minocycline Hcl (Minocycline 100MG. Capsule) 100 MG PO BID #20 CAP ED Critical [place] 0[address]
--- NOTE | 2017-04-15 23:38 | Emergency Room Report ---
History of Present Illness Time Seen by [id number] Presenting Problem in Triage Pt arrived:Walked Presenting Problem:REPORTS RECENTLY HAD CELLULITIS WITH MRSA. HAD PICC LINE REMOVED ON SUNDAY. 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 N Clinical Suspician of Infection? N Mental Status: 1 - Regular (Normal Baseline) Sepsis Risk:Low Sepsis Risk Have you (or family members/close friends) recently traveled outside the [place]? N If Yes, where/when: Have you had exposure to infectious disease within the past month? N TB? Other? Specify: Source patient, RN notes reviewed, RN/MD Exam Limitations no limitations Comment Patient presents with a LEFT upper thigh soreness, noticed yesterday. 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 Luong. Patient had a total of 13 incision and drainage procedures performed by surgeon, advised that she has recently had her PICC line discontinued after receiving IV antibiotics. ALLERGIES Coded Allergies: bacitracin (From NEOSPORIN ([id number])) (Mild, 05/03/15) neomycin (From NEOSPORIN ([id number])) (Mild, 05/03/15) polymyxin B (From NEOSPORIN ([id number])) (Mild, 05/03/15) sulfamethoxazole (From BACTRIM) (Mild, 05/03/15) trimethoprim (From BACTRIM) (Mild, 05/03/15) Home Medications Reported Medications Dextroamphetamine/Amphetamine (Adderall 20 MG Tablet) 20 MG PO BID History Medical History General CAD? No Angina: No NC: No Hypertension? No Hyperlipidemia? No CHF? No DVT? No PE? No COPD? No Asthma? No Anemia? No GERD? No Gastric ulcers? No GI Bleed? No Hernia? No Thyroid Problems? No Hypothyroidism? No CVA? No Seizures? No Diabetes? No Renal Insuffiency? No End Stage Renal Disease? No UTI? Yes Stones? No BPH? No GB Disease: Yes Nephritic Syndrome? No Asplenia? No Hepatitis? No Sickle Cell Disease? No Arthritis? No Migraines? No Cataracts? No Glaucoma? No MRSA? Yes HIV? No TB? No Anxiety? No Depression? No Cancer? No More? 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 Family History Family Hx Diabetes Yes CAD Yes Hypertension Yes Hyperlipidemia Yes Cancer Yes TB No Social History Smoking Hx Smoker: Current Every Day Smoker Tobacco: Yes Type Cigarettes Packs/day 1 1/2 - 2 Packs Alcohol Alcohol: Yes Review of Systems All Other Systems Reviewed and Negative Skin lumps (LEFT upper thigh) Physical Exam Vital Signs Vital Signs Date Time Temp Pulse Resp B/P Pulse O2 O2 Flow FiO2 Ox Delivery Rate 04/15 2356 98.7 86 18 107/70 98 04/15 2317 86 18 107/70 98 04/15 2131 98.7 102 18 126/100 99 General Appearance normal appearance, WD/WN, no apparent distress Respiratory Status Yes: trachea midline, chest symmetrical, non tender chest. No: respiratory distress. Lung Sounds bilateral: normal breath sounds, lungs clear. Cardiovascular normal exam, regular rate/rhythm, no peripheral edema, no gallop, no JVD, no murmur, no rub, normal peripheral pulses Gastrointestinal normal bowel sounds, normal exam, non tender, soft, no organomegaly Extremities non-tender, normal range of motion, normal inspection Nurse present during exam? 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 Medical Decision Making LABS/Meds/Orders Pt receiving controlled substance in ED? No Comment 2325-given the patient's multiple recurrent abscesses I have advised her to see Dr. Luong in the office in the morning for surgical evaluation of her new LEFT groin early abscess. Patient started on -3 which patient advised was previously prescribed and successfully help her other skin infections. No I&D performed in the emergency room today. Results/Orders Laboratory Tests 04/15/172199: Lactic Acid 0.8 04/15/172199: Sodium 141, Potassium 3.6, Chloride 106, Carbon Dioxide 25, BUN 18, Creatinine 0.9, Estimated Creat Clear 83, Estimated GFR (MDRD) 75, Glucose 96, Calcium 9.0, Total Bilirubin 0.2, AST 13 L, ALT 26, Alkaline Phosphatase 99, Total Protein 7.3, Albumin 4.0, Globulin 3.3 H, Albumin/Globulin Ratio 1.2, WBC 11.9 H, RBC 4.64, Hgb 14.7, Hct 43.7, MCV 94.2, RDW 13.5, Plt Count 228, MPV 9.5, Gran % 60.3, Gran # 7.2, Lymphocytes % 32.4, Monocytes % 4.4, Eosinophils % 2.2, Basophils % 0.6, Lymphocytes # 3.8, Monocytes # 0.5, Eosinophils # 0.3, Basophils # 0.1, PUBS MCHC 33.7, MCH 31.7 H Current Medication Orders Sig/Matthias Start time Last Medication Dose Route Stop Time Status Admin Doxycycline Hyclate 0 .STK-MED ONE 04/15 2352 DC PO Doxycycline Hyclate 200 MG ONCE ONE 04/15 2345 DCr 04/15 PO 04/15 2346 2352 Minocycline HCl 100 MG ONCE ONE 04/15 2345 DC PO 04/15 2346 Sodium Chloride 10 ML PRN PRN 04/15 2145 DCD IV 04/16 2140 Orders Procedure Date/time Status IV SALINE LOCK 04/15 2140 Active CULTURE, BLOOD 04/15 2140 Active LACTIC ACID 04/15 2140 Complete CBC WITH AUTO DIFF 04/15 2140 Complete CHEM 12 PROFILE 04/15 2140 Complete Departure Departure Time of Disposition 2334 Disposition DC Home or Self Care(routine) Clinical Impression Primary Impression: Abscess Condition STABLE Referrals JUANA LUONG MD: Tomorrow-Call Office Patient Instructions DI for Skin Abscess Additional Instructions Please take the antibiotic (Minocycline) prescribed as directed, follow-up with Dr. Luong in the office tomorrow for mandatory reevaluation. Discharge Counseling Counseled pt/family regarding diagnosis, medications/RX, home care, follow up needs Comment Please take the antibiotic (Minocycline) prescribed as directed, follow-up with Dr. Luong in the office tomorrow for mandatory reevaluation. Prescriptions Current Visit Scripts Minocycline Hcl (Minocycline 100MG. Capsule) 100 MG PO BID #20 CAP ED Critical Care Critical Care No at 0527
[2017-04-15 23:56] VITALS: BP 107/70
== END 2017-04-15 23:59 | disposition home or self-care (01) ==
LOC: ER 21:25
PROVIDERS: Emergency Medicine
DX: L02.416 Cutaneous abscess of left lower limb (principal); Z86.14 Personal history of Methicillin resistant Staphylococcus aureus infection; F17.210 Nicotine dependence, cigarettes, uncomplicated

== ENCOUNTER 2017-04-17 23:53 | Emergency (ER) | payer MEDICAID ==
[~2017-04-17] VITALS: Ht 152.4 cm; Wt 56.7 kg
[2017-04-18] MEDS ORDERED: OXYCODONE AND A1 TA4 PO (00:01)
--- OUTSIDE RECORDS SUMMARY | 2017-04-18 00:15 | External Medical Summary Rpt | CCD ---
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 [facility] - 8 8 [facility]
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
--- OUTSIDE RECORDS SUMMARY | 2017-04-18 00:23 | External Medical Summary Rpt | CCD ---
Author Author , STACIE QUINONES Address Unknown Phone [email or web address] Immunization Name Date Rout CVX Reac Dose [...]
--- OUTSIDE RECORDS SUMMARY | 2017-04-18 00:23 | External Medical Summary Rpt | CCD ---
Author Author , STACIE QUINONES Address Unknown Phone [email or web address] Immunization Name Date Rout CVX Reac Dose [...]
--- NOTE | 2017-04-18 00:34 | Emergency Room Report ---
History of Present Illness Time Seen by MD Jackson Presenting Problem in Triage Pt arrived:Walked Presenting Problem:PT REPORTS FEELING LIKE DOESN'T HAVE ANY ENERGY, STATES IS BEING TREATED FOR ABSCESS ON LEG WITH ORAL ANTIBIOTICS, STATES HAS BEEN ON ANTIBIOTICS FOR 24 HOURS. 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 N Clinical Suspician of Infection? N Mental Status: 1 - Regular (Normal Baseline) Sepsis Risk:Low Sepsis Risk Have you (or family members/close friends) recently traveled outside the [place]? N If Yes, where/when: Have you had exposure to infectious disease within the past month? N TB? Other? Specify: Source patient, RN notes reviewed, family, old records Exam Limitations no limitations Comment pt with feeling unwell with no fever but has nausea and vomiting and weakness - she is having ongoing issues with perineal cellulitis - has been on abx and has finished course of iv abx- Cardiac Chest Pain Chest pain indicative of cardiac No Timing/Duration this evening Severity moderate ALLERGIES Coded Allergies: bacitracin (From NEOSPORIN ([id number])) (Mild, 05/03/15) neomycin (From NEOSPORIN ([id number])) (Mild, 05/03/15) polymyxin B (From NEOSPORIN ([id number])) (Mild, 05/03/15) sulfamethoxazole (From BACTRIM) (Mild, 05/03/15) trimethoprim (From BACTRIM) (Mild, 05/03/15) Home Medications Active Scripts Minocycline Hcl (Minocycline 100MG. Capsule) 100 MG PO BID #20 CAP Prov: 04/15/17 Reported Medications Dextroamphetamine/Amphetamine (Adderall 20 MG Tablet) 20 MG PO BID OXYCODONE HCL/ACETAMINOPHEN (Oxycodon-Acetaminophen 7.5-325) 1 TAB PO TID #15 History Medical History General CAD? No Angina: No HI: No Hypertension? No Hyperlipidemia? No CHF? No DVT? No PE? No COPD? No Asthma? No Anemia? No GERD? No Gastric ulcers? No GI Bleed? No Hernia? No Thyroid Problems? No Hypothyroidism? No CVA? No Seizures? No Diabetes? No Renal Insuffiency? No End Stage Renal Disease? No UTI? Yes Stones? No BPH? No GB Disease: Yes Nephritic Syndrome? No Asplenia? No Hepatitis? No Sickle Cell Disease? No Arthritis? No Migraines? No Cataracts? No Glaucoma? No MRSA? Yes HIV? No TB? No Anxiety? No Depression? No Cancer? No More? 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 Respiratory denies cough, denies shortness of breath, denies wheezing Cardiovascular denies chest pain, denies syncope Gastrointestinal denies abdominal pain, denies diarrhea, denies vomiting Genitourinary denies: dysuria, frequency, hesitancy, hematuria. Musculoskeletal denies back pain, denies joint pain, denies joint swelling, denies neck pain Skin see HPI, denies rash, other Psychiatric/Neurological denies headache, denies seizure Physical Exam Vital Signs Vital Signs Date Time Temp Pulse Resp B/P Pulse O2 O2 Flow FiO2 Ox Delivery Rate 04/17 2356 97.6 89 18 160/71 98 - WBC >12,000 or <4,000 or 10% bands? 2 or more SIRS Criteria Met? B/P:160/71 MAP:100 Creatinine >2.0? UA output<0.5ml/kg/hr for 2 hrs? Platelet count >100,000? Lactate >2.0mmol/1? INR >1.2 or PTT > than 60 sec? Evidence of Organ Dysfunction? Provider documented clinical suspician of infection? N Sepsis Criteria Count: 0 Sepsis Risk: Low Sepsis Risk General Appearance no apparent distress Eye Exam - bilateral eye PERRL, bilateral eye EOMI Ear, Nose, Throat normal ENT inspection, no icterus Neck supple Respiratory Status No: respiratory distress. 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 No Results/Orders Laboratory Tests 04/18/17 0105: Urine Color ROSALINA, Urine Appearance CLEAR, Urine pH 5.5, Ur Specific [place] >= 1.030, Urine Protein NEGATIVE, Urine Ketones NEGATIVE, Urine Blood NEGATIVE, Urine Nitrate NEGATIVE, Urine Bilirubin NEGATIVE, Urine Urobilinogen 0.2, Ur Leukocyte Esterase NEGATIVE, Urine WBC 3-5, Ur Squamous Epith Cells 5-10, Calcium Oxalate Crystal OCC, Urine Bacteria 1+, Urine Mucus 2+, Urine Glucose NEGATIVE 04/18/17 0100: Sodium 140, Potassium 3.6, Chloride 101, Carbon Dioxide 30, BUN 9, Creatinine 0.7, Estimated Creat Clear 107, Estimated GFR (MDRD) 100, Glucose 111 H, Calcium 9.0, Total Bilirubin 0.3, AST 97 H, ALT 97 H, Alkaline Phosphatase 111 , Total Protein 7.2, Albumin 3.9, Globulin 3.3 H, Albumin/Globulin Ratio 1.2, WBC 10.4, RBC 4.35, Hgb 13.7, Hct 40.6, MCV 93.2, RDW 13.5, Plt Count 216, MPV 9.1, Gran % 68.2, Gran # 7.1, Lymphocytes % 16.4, Monocytes % 5.5, Eosinophils % 9.3, Basophils % 0.6, Lymphocytes # 1.7, Monocytes # 0.6, Eosinophils # 1.0 H, Basophils # 0.1, PUBS MCHC 33.8, ESR 12, MCH 31.5 H Current Medication Orders Sig/Matthias Start time Last Medication Dose Route Stop Time Status Admin Diphenhydramine HCl 25 MG ONCE ONE 04/18 0145 DC 04/18 IV 04/18 014 0146 Diphenhydramine HCl 0 .STK-MED ONE 04/18 145 DC .ROUTE Vancomycin HCl See Dose ONCE ONE 04/18 145 DC Insts (1) IV 04/18 146 Vancomycin HCl 1,250 MG ONCE ONE 04/18 145 DCr 04/18 Sodium Chloride 250 ML IV 04/18 034 0155 Vancomycin HCl 0 .STK-MED ONE 04/18 140 DC .ROUTE Sodium Chloride 250 ML .STK-MED ONE 04/18 139 DC IV Promethazine HCl 0 .STK-MED ONE 04/18 133 DC .ROUTE Sodium Chloride 25 ML .STK-MED ONE 04/18 132 DC IV Promethazine HCl 12.5 MG ONCE ONE 04/18 130 DC 04/18 IV 04/18 013 0136 Sodium Chloride 25 ML ONCE ONE 04/18 130 DC 04/18 IV 04/18 014 0137 Sodium Chloride 1,000 ML .STK-MED ONE 04/184 DC IV Sodium Chloride 10 ML PRN PRN 04/18 0100 AC IV 04/19 0046 Sodium Chloride 1,000 ML .Q1H1M 04/18 010 DC 04/18 IV 04/18 0200 0109 Sodium Chloride 10 ML PRN PRN 04/18 0100 AC IV 04/19 0047 Dose Instructions: (1)Vancomycin HCl: CONTACT PHARMACY FOR DOSING Orders Procedure Date/time Status CULTURE, BLOOD 04/18 49 Active IV SALINE LOCK 04/18 47 Active URINALYSIS/COMPLETE 04/18 47 Complete URINE 04/18 47 Complete SED RATE 04/18 47 Complete C-REACTIVE PROTEIN 04/18 47 Complete COMPLETE METABOLIC PANEL 04/18 47 Complete CBC WITH AUTO DIFF 04/18 47 Complete Departure Departure Time of Disposition 0343 Disposition DC Home or Self Care(routine) Clinical Impression Primary Impression: CELLULITIS OF PERINEUM Condition STABLE Referrals Tolu Bravo MD (Family) Patient Instructions DI for Cellulitis -- Adult Additional Instructions call pcp in am Discharge Counseling Counseled pt/family regarding diagnosis, test results, medications/RX, follow up needs ED Critical Care Critical Care No at 0345
--- NOTE | 2017-04-18 00:34 | Emergency Room Report ---
History of Present Illness Time Seen by MD Jackson Presenting Problem in Triage Pt arrived:Walked Presenting Problem:PT REPORTS FEELING LIKE DOESN'T HAVE ANY ENERGY, STATES IS BEING TREATED FOR ABSCESS ON LEG WITH ORAL ANTIBIOTICS, STATES HAS BEEN ON ANTIBIOTICS FOR 24 HOURS. 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 N Clinical Suspician of Infection? N Mental Status: 1 - Regular (Normal Baseline) Sepsis Risk:Low Sepsis Risk Have you (or family members/close friends) recently traveled outside the [place]? N If Yes, where/when: Have you had exposure to infectious disease within the past month? N TB? Other? Specify: Source patient, RN notes reviewed, family, old records Exam Limitations no limitations Comment pt with feeling unwell with no fever but has nausea and vomiting and weakness - she is having ongoing issues with perineal cellulitis - has been on abx and has finished course of iv abx- Cardiac Chest Pain Chest pain indicative of cardiac No Timing/Duration this evening Severity moderate ALLERGIES Coded Allergies: bacitracin (From NEOSPORIN ([id number])) (Mild, 05/03/15) neomycin (From NEOSPORIN ([id number])) (Mild, 05/03/15) polymyxin B (From NEOSPORIN ([id number])) (Mild, 05/03/15) sulfamethoxazole (From BACTRIM) (Mild, 05/03/15) trimethoprim (From BACTRIM) (Mild, 05/03/15) Home Medications Active Scripts Minocycline Hcl (Minocycline 100MG. Capsule) 100 MG PO BID #20 CAP Prov: 04/15/17 Reported Medications Dextroamphetamine/Amphetamine (Adderall 20 MG Tablet) 20 MG PO BID OXYCODONE HCL/ACETAMINOPHEN (Oxycodon-Acetaminophen 7.5-325) 1 TAB PO TID #15 History Medical History General CAD? No Angina: No ME: No Hypertension? No Hyperlipidemia? No CHF? No DVT? No PE? No COPD? No Asthma? No Anemia? No GERD? No Gastric ulcers? No GI Bleed? No Hernia? No Thyroid Problems? No Hypothyroidism? No CVA? No Seizures? No Diabetes? No Renal Insuffiency? No End Stage Renal Disease? No UTI? Yes Stones? No BPH? No GB Disease: Yes Nephritic Syndrome? No Asplenia? No Hepatitis? No Sickle Cell Disease? No Arthritis? No Migraines? No Cataracts? No Glaucoma? No MRSA? Yes HIV? No TB? No Anxiety? No Depression? No Cancer? No More? 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 Respiratory denies cough, denies shortness of breath, denies wheezing Cardiovascular denies chest pain, denies syncope Gastrointestinal denies abdominal pain, denies diarrhea, denies vomiting Genitourinary denies: dysuria, frequency, hesitancy, hematuria. Musculoskeletal denies back pain, denies joint pain, denies joint swelling, denies neck pain Skin see HPI, denies rash, other Psychiatric/Neurological denies headache, denies seizure Physical Exam Vital Signs Vital Signs Date Time Temp Pulse Resp B/P Pulse O2 O2 Flow FiO2 Ox Delivery Rate 04/17 2356 97.6 89 18 160/71 98 - WBC >12,000 or <4,000 or 10% bands? 2 or more SIRS Criteria Met? B/P:160/71 MAP:100 Creatinine >2.0? UA output<0.5ml/kg/hr for 2 hrs? Platelet count >100,000? Lactate >2.0mmol/1? INR >1.2 or PTT > than 60 sec? Evidence of Organ Dysfunction? Provider documented clinical suspician of infection? N Sepsis Criteria Count: 0 Sepsis Risk: Low Sepsis Risk General Appearance no apparent distress Eye Exam - bilateral eye PERRL, bilateral eye EOMI Ear, Nose, Throat normal ENT inspection, no icterus Neck supple Respiratory Status No: respiratory distress. 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 No Results/Orders Laboratory Tests 04/18/17 0105: Urine Color ROSALINA, Urine Appearance CLEAR, Urine pH 5.5, Ur Specific [place] >= 1.030, Urine Protein NEGATIVE, Urine Ketones NEGATIVE, Urine Blood NEGATIVE, Urine Nitrate NEGATIVE, Urine Bilirubin NEGATIVE, Urine Urobilinogen 0.2, Ur Leukocyte Esterase NEGATIVE, Urine WBC 3-5, Ur Squamous Epith Cells 5-10, Calcium Oxalate Crystal OCC, Urine Bacteria 1+, Urine Mucus 2+, Urine Glucose NEGATIVE 04/18/17 0100: Sodium 140, Potassium 3.6, Chloride 101, Carbon Dioxide 30, BUN 9, Creatinine 0.7, Estimated Creat Clear 107, Estimated GFR (MDRD) 100, Glucose 111 H, Calcium 9.0, Total Bilirubin 0.3, AST 97 H, ALT 97 H, Alkaline Phosphatase 111 , Total Protein 7.2, Albumin 3.9, Globulin 3.3 H, Albumin/Globulin Ratio 1.2, WBC 10.4, RBC 4.35, Hgb 13.7, Hct 40.6, MCV 93.2, RDW 13.5, Plt Count 216, MPV 9.1, Gran % 68.2, Gran # 7.1, Lymphocytes % 16.4, Monocytes % 5.5, Eosinophils % 9.3, Basophils % 0.6, Lymphocytes # 1.7, Monocytes # 0.6, Eosinophils # 1.0 H, Basophils # 0.1, PUBS MCHC 33.8, ESR 12, MCH 31.5 H Current Medication Orders Sig/Matthias Start time Last Medication Dose Route Stop Time Status Admin Diphenhydramine HCl 25 MG ONCE ONE 04/18 0145 DC 04/18 IV 04/18 014 0146 Diphenhydramine HCl 0 .STK-MED ONE 04/18 145 DC .ROUTE Vancomycin HCl See Dose ONCE ONE 04/18 145 DC Insts (1) IV 04/18 146 Vancomycin HCl 1,250 MG ONCE ONE 04/18 145 DCr 04/18 Sodium Chloride 250 ML IV 04/18 034 0155 Vancomycin HCl 0 .STK-MED ONE 04/18 140 DC .ROUTE Sodium Chloride 250 ML .STK-MED ONE 04/18 139 DC IV Promethazine HCl 0 .STK-MED ONE 04/18 133 DC .ROUTE Sodium Chloride 25 ML .STK-MED ONE 04/18 132 DC IV Promethazine HCl 12.5 MG ONCE ONE 04/18 130 DC 04/18 IV 04/18 013 0136 Sodium Chloride 25 ML ONCE ONE 04/18 130 DC 04/18 IV 04/18 014 0137 Sodium Chloride 1,000 ML .STK-MED ONE 04/184 DC IV Sodium Chloride 10 ML PRN PRN 04/18 0100 AC IV 04/19 0046 Sodium Chloride 1,000 ML .Q1H1M 04/18 010 DC 04/18 IV 04/18 0200 0109 Sodium Chloride 10 ML PRN PRN 04/18 0100 AC IV 04/19 0047 Dose Instructions: (1)Vancomycin HCl: CONTACT PHARMACY FOR DOSING Orders Procedure Date/time Status CULTURE, BLOOD 04/18 49 Active IV SALINE LOCK 04/18 47 Active URINALYSIS/COMPLETE 04/18 47 Complete URINE 04/18 47 Complete SED RATE 04/18 47 Complete C-REACTIVE PROTEIN 04/18 47 Complete COMPLETE METABOLIC PANEL 04/18 47 Complete CBC WITH AUTO DIFF 04/18 47 Complete Departure Departure Time of Disposition 0343 Disposition DC Home or Self Care(routine) Clinical Impression Primary Impression: CELLULITIS OF PERINEUM Condition STABLE Referrals Tolu Bravo MD (Family) Patient Instructions DI for Cellulitis -- Adult Additional Instructions call pcp in am Discharge Counseling Counseled pt/family regarding diagnosis, test results, medications/RX, follow up needs ED Critical Care Critical Care No at 0345
[2017-04-18 01:08] LABS: HEMOGLOBIN 13.7 g/dL (12.2-16.2); LYMPH # 1.7 K/mm3 (0.7-4.5); LYMPH % 16.4 % (10-50.0)
[2017-04-18 01:16] LABS: URINE BLOOD NEGATIVE (NEG)
[2017-04-18 01:17] LABS: URINE BILIRUBIN - DIPSTICK NEGATIVE (NEG)
[2017-04-18 01:35] LABS: BUN 9 mg/dL (7-18); GFR (ESTIMATED) 100 ML/MIN (59-)
[2017-04-18 03:59] VITALS: BP 100/64
== END 2017-04-18 04:05 | disposition home or self-care (01) ==
LOC: ER 23:53
PROVIDERS: Emergency Medicine
DX: L03.315 Cellulitis of perineum (principal); R53.83 Other fatigue
CPT/HCPCS: J2405; J3370